=== PATIENT | male | born 1940 | race Caucasian/White ===

== ENCOUNTER 2016-10-29 20:41 | Emergency (ER) | payer MEDICARE ==
[2016-10-29] MEDS ORDERED: Sodium Chloride 0.9% 10 ML Syringe FLUSH PRN (21:16)
[2016-10-29] MEDS ORDERED: Acetaminophen 325 MG Tab PO ONE (21:50)
--- NOTE | 2016-10-29 21:56 | EDM.PDOC ---
ED HPI DIZZINESS - General Chief Complaint: ENT Problem Stated Complaint: DIZZINESS [id number] Time Seen by Provider: 10/29/16 21:30 Source of Information: Reports: Patient, Family Exam Limitations: Reports: No limitations - History of Present Illness INITIAL COMMENTS - FREE TEXT/NARRATIVE: c/o dizziness and weakness worse tonight, room spinning, has had cold symptoms 2 days fever tonight 101 at home. occasional cough. noted had to assist getting him out of recliner tonight. Patient denied SOB or chest pain. O2 86-88 % on admission. No respiratory hx. Patient noted moving and setting mobile home on sunday, exhausted after. Baseline Function: Reports: ambulatory, independent Quality: Reports: lightheaded ( when standing ) Severity: moderate Improves With: Reports: sitting Worsens With: Reports: standing Context, Dizziness: Reports: recent illness Associated Symptoms: Reports: needs assistance to walk. Denies: previous similar episodes - Related Data Allergies/ADRs: Allergies Allergy/AdvReac Type Severity Reaction Status Date / Time No Known Allergies Allergy Verified 10/29/16 21:17 Home Meds: Home Meds Spironolactone [Spironolactone] 25 mg PO DAILY 10/29/16 [History] amLODIPine Besylate/Benazepril [Amlodipine-Benazepril 10-40 MG] 1 each PO DAILY 10/29/16 [History] atorvaSTATin [Lipitor] 20 mg PO BEDTIME 10/29/16 [History] cloNIDine [Catapres] 0.1 mg PO DAILY 10/29/16 [History] glipiZIDE [Glipizide] 10 mg PO BID 10/29/16 [History] metFORMIN [Glucophage] 1,000 mg PO BID 10/29/16 [History] ED ROS GENERAL - Review of Systems Review Of Systems: See Below Constitutional: Reports: fever, malaise, weakness HEENT: Reports: Sinus problem (congestion), Throat pain Respiratory: Reports: No Symptoms Cardiovascular: Reports: Lightheadedness GI/Abdominal: Reports: No symptoms Musculoskeletal: Reports: no symptoms Skin: Reports: no symptoms Neurological: Reports: Dizziness, Weakness Psychiatric: Reports: No symptoms ED EXAM, DIZZINESS - Physical Exam Exam: See Below Exam Limited By: No limitations General Appearance: alert, mild distress Eye Exam: bilateral eye: EOMI, PERRL (4) Ears: normal external exam, normal TMs Nose: normal inspection, normal mucosa Throat/Mouth: Normal inspection Head Exam: atraumatic, normocephalic Neck: normal inspection. No: lymphadenopathy (L), lymphadenopathy (R) Respiratory/Chest: no respiratory distress, lungs clear, normal breath sounds Cardiovascular: normal peripheral pulses, irregularly irregular. No: regular rate, rhythm GI/Abdominal: normal bowel sounds, soft, non tender Neurological: alert, normal mood/affect, normal dorsiflexion, normal reflexes, no motor/sensory deficits, oriented x 3, difficulty walking (weak). No: abnormal motor, tremor Extremities: normal inspection, normal range of motion, no pedal edema Psychiatric: normal affect, normal mood Skin Exam: Warm, Dry, Intact, Normal color Course - Vital Signs Last Recorded V/S: Last Vital Signs Temp 100.4 F 10/29/16 23:24 Pulse 151 H 10/29/16 23:03 Resp 24 H 10/29/16 21:30 BP 138/93 H 10/29/16 23:03 Pulse Ox 86 L 10/29/16 21:30 - Orders/Labs/Meds Orders: Active Orders 24 hr Category Date Time Status EKG Documentation Completion [RC] STAT Care 10/29/16 21:16 Active Peripheral IV Care [RC] . DIRECTED Care 10/29/16 21:17 Active CULTURE BLOOD [BC] Stat Lab 10/29/16 21:30 Received CULTURE BLOOD [BC] Stat Lab 10/29/16 21:36 Received Blood Culture x2 Reflex Set [OM.PC] Stat Oth 10/29/16 21:12 Ordered Peripheral IV Insertion Adult [OM.PC] Routine Oth 10/29/16 21:16 Ordered Labs: Laboratory Tests 10/29/16 10/29/16 10/29/16 Range/Units 21:30 21:36 21:36 WBC 8.5 (5.0-10.0) 10^3/uL RBC 4.27 L (4.6-6.2) 10^6/uL Hgb 12.4 L (14.0-18.0) g/dL Hct 36.8 L (40.0-54.0) % MCV 86.2 (80-100) fL MCH 29.0 (27.0-34.0) pg MCHC 33.7 (33.0-35.0) g/dL Plt Count 191 (150-450) 10^3/uL Neut % (Auto) 76.9 H (42.2-75.2) % Lymph % (Auto) 9.2 L (20.5-50.1) % King % (Auto) 12.9 H (2-8) % Eos % (Auto) 0.6 L (1.0-3.0) % Baso % (Auto) 0.4 (0.0-1.0) % Sodium 139 (135-145) mmol/L Potassium 3.9 (3.6-5.0) mmol/L Chloride 104 (101-111) mmol/L Carbon Dioxide 24.0 (21.0-31.0) mmol/L Anion Gap 14.9 BUN 20 H (7-18) mg/dL Creatinine 1.6 H (0.6-1.3) mg/dL Est Cr Clr Drug Dosing 41.83 mL/min Estimated GFR (MDRD) 42 BUN/Creatinine Ratio 12.50 Glucose 231 H (74-105) mg/dL Lactic Acid 1.4 (0.5-2.2) mmol/L Calcium 9.5 (8.4-10.2) mg/dl Total Bilirubin 1.2 H (0.2-1.0) mg/dL AST 30 (10-42) IU/L ALT 26 (10-60) IU/L Alkaline Phosphatase 76 (42-121) IU/L Troponin I (0.00-0.02) ng/ml B-Natriuretic Peptide 75 (0-100) pg/ml Total Protein 7.4 (6.7-8.2) g/dl Albumin 4.4 (3.2-5.5) g/dl Globulin 3.0 Albumin/Globulin Ratio 1.47 // Range/Units 21:36 WBC (5.0-10.0) 10^3/uL RBC (4.6-6.2) 10^6/uL Hgb (14.0-18.0) g/dL Hct (40.0-54.0) % MCV (80-100) fL MCH (27.0-34.0) pg MCHC (33.0-35.0) g/dL Plt Count (150-450) 10^3/uL Neut % (Auto) (42.2-75.2) % Lymph % (Auto) (20.5-50.1) % King % (Auto) (2-8) % Eos % (Auto) (1.0-3.0) % Baso % (Auto) (0.0-1.0) % Sodium (135-145) mmol/L Potassium (3.6-5.0) mmol/L Chloride (101-111) mmol/L Carbon Dioxide (21.0-31.0) mmol/L Anion Gap BUN (7-18) mg/dL Creatinine (0.6-1.3) mg/dL Est Cr Clr Drug Dosing mL/min Estimated GFR (MDRD) BUN/Creatinine Ratio Glucose (74-105) mg/dL Lactic Acid (0.5-2.2) mmol/L Calcium (8.4-10.2) mg/dl Total Bilirubin (0.2-1.0) mg/dL AST (10-42) IU/L ALT (10-60) IU/L Alkaline Phosphatase (42-121) IU/L Troponin I 0.02 (0.00-0.02) ng/ml B-Natriuretic Peptide (0-100) pg/ml Total Protein (6.7-8.2) g/dl Albumin (3.2-5.5) g/dl Globulin Albumin/Globulin Ratio Meds: Medications Discontinued Medications Generic Name Dose Route Start Last Admin Trade Name Freq PRN Reason Stop Dose Admin Acetaminophen 650 mg 10/29/16 21:50 10/29/16 22:13 Tylenol PO 10/29/16 21:51 650 mg NOW ONE Administration Sodium Chloride 1,000 mls @ 200 mls/hr 10/29/16 22:47 10/29/16 22:55 Normal Saline IV 10/30/16 03:46 200 mls/hr .BOLUS ONE Administration Levofloxacin/Dextrose 500 mg/ 100 mls @ 100 mls/hr 10/29/16 23:13 10/29/16 23 :18 Premix IV 10/30/16 00:12 100 mls/hr ONETIME ONE Administration Metoprolol Tartrate 2.5 mg 10/29/16 22:58 10/29/16 23:03 Lopressor IVPUSH 10/29/16 22:59 2.5 mg ONETIME ONE Administration Sodium Chloride 10 ml 10/29/16 21:16 10/29/16 22:52 Saline Flush FLUSH 10 ml ASDIRECTED PRN Administration Keep Vein Open Departure - Departure Time of Disposition: 00:00 Disposition: DC/Tfer to Acute Hospital 02 Condition: fair Clinical Impression: New onset atrial fibrillation, Abnormal head CT Hypertensive heart disease Qualifiers: Heart failure presence: without heart failure Qualified Code(s): I11.9 - Hypertensive heart disease without heart failure Referrals: Darrin Bolton MD [Primary Care Provider] - Forms: ED Department Discharge - My Orders Last 24 Hours: My Active Orders 10/29/16 21:12 Blood Culture x2 Reflex Set [OM.PC] Stat 10/29/16 21:16 EKG Documentation Completion [RC] STAT Peripheral IV Insertion Adult [OM.PC] Routine 10/29/16 21:17 Peripheral IV Care [RC] . DIRECTED 10/29/16 21:30 CULTURE BLOOD [BC] Stat 10/29/16 21:36 CULTURE BLOOD [BC] Stat - Assessment/Plan Last 24 Hours: My Active Orders 10/29/16 21:12 Blood Culture x2 Reflex Set [OM.PC] Stat 10/29/16 21:16 EKG Documentation Completion [RC] STAT Peripheral IV Insertion Adult [OM.PC] Routine 10/29/16 21:17 Peripheral IV Care [RC] . DIRECTED 10/29/16 21:30 CULTURE BLOOD [BC] Stat 10/29/16 21:36 CULTURE BLOOD [BC] Stat
[2016-10-29] MEDS ORDERED: Sodium Chloride 0.9% 1,000 ML IV ONE (22:47)
[2016-10-29] MEDS ORDERED: Metoprolol Tartrate 5 MG/5 ML SDV IVPUSH ONE (22:58)
[2016-10-29 23:04] VITALS: BP 138/93
[2016-10-29] MEDS ORDERED: Levofloxacin/Dextrose 5%-Water 500 MG in Premix Bag 1 BAG IV ONE (23:13)
--- NOTE | 2016-10-31 14:18 | EKG ---
10/29/2016 - EVELINA MORAN - Twelve-lead EKG shows atrial fibrillation with rapid ventricular response. Heart rate of 132. No significant ST elevation or ST depression noted on this 12-lead EKG. Nonspecific ST changes noted on lead V6. [facility] /[id number]
== END 2016-10-30 ==
LOC: DL.ED 20:41
DX: I11.9 Hypertensive heart disease without heart failure (principal); I48.91 Unspecified atrial fibrillation; R93.0 Abnormal findings on diagnostic imaging of skull and head, not elsewhere classified; Z79.84 Long term (current) use of oral hypoglycemic drugs; Z79.899 Other long term (current) drug therapy
CPT/HCPCS: 36415; 70450; 71020; 80053; 83605; 83880; 84484; 85025; 87040; 87804; 93005; 93010; 96365; 96375; 99285; A9270; J1956; J7030; J7050; J3490

== ENCOUNTER 2016-11-17 22:21 | Inpatient (IN) | payer MEDICARE ==
[2016-11-18] MEDS ORDERED: Furosemide 40 MG/4 ML VIAL IVPUSH ONE (01:17)
[2016-11-18] MEDS ORDERED: Potassium Chloride 10 MEQ Tab.ER PO ONE (01:18)
[2016-11-18] MEDS ORDERED: Potassium Chloride 10 MEQ in Premix Bag 1 BAG IV ONE (01:18)
--- NOTE | 2016-11-18 02:25 | EDM.PDOC ---
{null, ED HPI GENERAL MEDICAL PROBLEM - General Chief Complaint: Respiratory Problem Stated Complaint: PNEUMONIA Time Seen by Provider: 11/17/16 23:50 Source of Information: Reports: Patient, Family History Limitations: Reports: No Limitations - History of Present Illness INITIAL COMMENTS - FREE TEXT/NARRATIVE: ED with c/o increased cough and SOB, No fever or chest pain. [place] heart pounding this am but did not feel fast like last ED visit. notes both have had cold symptoms past few days. Patient notes weakness since release from hospital. Patient transferred from here for new onset atrial fib with abnormal CT and pneumonia on 10/29.. noted bleed (retroperitoneal)while on blood thinner during hospitalization and received 8 units of blood. Abdomen is distended and not changed in size but is "softer than during hospitalization. Edema present lower extremities but no change. Duration: Day(s): Location: Reports: Chest Associated Symptoms: Reports: Cough Right Lower Abdomen Pain Score (Numeric/FACES): 8 - Related Data Allergies Allergy/AdvReac Type Severity Reaction Status Date / Time No Known Allergies Allergy Verified 11/18/16 03:05 Home Meds: Home Meds Spironolactone [Spironolactone] 25 mg PO DAILY 10/29/16 [History] amLODIPine Besylate/Benazepril [Amlodipine-Benazepril 10-40 MG] 1 each PO DAILY 10/29/16 [History] atorvaSTATin [Lipitor] 20 mg PO BEDTIME 10/29/16 [History] cloNIDine [Catapres] 0.1 mg PO DAILY 10/29/16 [History] glipiZIDE [Glipizide] 10 mg PO BID 10/29/16 [History] metFORMIN [Glucophage] 1,000 mg PO BID 10/29/16 [History] Past Medical History HEENT History: Reports: None Cardiovascular History: Reports: Afib, Heart Failure, High Cholesterol, Hypertension Respiratory History: Reports: Pneumonia, Recurrent Genitourinary History: Reports: Acute Renal Failure Musculoskeletal History: Reports: Fracture Neurological History: Reports: None Endocrine/Metabolic History: Reports: Diabetes, Type II Oncologic (Cancer) History: Reports: Prostate - Past Surgical History HEENT Surgical History: Reports: None GI Surgical History: Reports: Appendectomy Social & Family History - Family History Family Medical History: Noncontributory - Tobacco Use Smoking Status *Q: Never Smoker Second Hand Smoke Exposure: No - Caffeine Use Caffeine Use: Reports: None - Recreational Drug Use Recreational Drug Use: No ED ROS GENERAL - Review of Systems Review Of Systems: See Below Constitutional: Reports: Weakness. Denies: Fever, Chills HEENT: Reports: No Symptoms Respiratory: Reports: Shortness of Breath, Cough Cardiovascular: Reports: Edema Endocrine: Reports: No Symptoms GI/Abdominal: Reports: Distension (unchanged), Flatus : Reports: No Symptoms Musculoskeletal: Reports: No Symptoms Skin: Reports: No Symptoms Neurological: Reports: Difficulty Walking, Weakness Psychiatric: Reports: No Symptoms Hematologic/Lymphatic: Reports: Anemia ED EXAM, GENERAL - Physical Exam Exam: See Below Exam Limited By: No Limitations General Appearance: Alert, Mild Distress Eye Exam: Bilateral Eye: PERRL Ears: Normal External Exam Nose: Normal Inspection Throat/Mouth: Normal Inspection Head: Atraumatic, Normocephalic Neck: Normal Inspection, Full Range of Motion Respiratory/Chest: Decreased Breath Sounds, Rales, Wheezing Cardiovascular: Normal Peripheral Pulses, Regular Rate, Rhythm GI/Abdominal: Normal Bowel Sounds (present distant throughout), Non-Tender, Distended (soft) Back Exam: Normal Inspection Extremities: Pedal Edema Neurological: Alert, Oriented, Normal Cognition Psychiatric: Normal Affect Skin Exam: Warm, Dry, Intact, Pallor Course - Vital Signs Last Recorded V/S: Last Vital Signs Temp 98.2 F 11/17/16 23:59 Pulse 64 11/18/16 01:05 Resp 20 11/18/16 01:05 BP 134/39 L 11/18/16 01:05 Pulse Ox 94 L 11/18/16 01:05 - Orders/Labs/Meds Orders: Active Orders 24 hr Category Date Time Status EKG 12 Lead [EKG Documentation Completion] [RC] URGENT Care 11/18/16 01:52 Active Chest 1V Frontal [CR] Urgent Exams 11/18/16 00:11 Taken CULTURE BLOOD [BC] Stat Lab 11/18/16 00:56 Received CULTURE BLOOD [BC] Stat Lab 11/18/16 00:59 Received Blood Culture x2 Reflex Set [OM.PC] Stat Oth 11/18/16 00:11 Ordered Medication Orders Albuterol/Ipratropium (Duoneb 3.0-0.5 Mg/3 Ml) 3 ml NEB Q6HRRT [facility] Atropine Sulfate (Atropine 1% Ophth Oint) 0 gm .XX Q2H PRN PRN Reason: use orally for oral secretion Azithromycin 500 mg/ Sodium (Chloride) 250 mls @ 250 mls/hr IV Q24H [facility] Ceftriaxone Sodium 1 gm/ (Sodium Chloride) 50 mls @ 100 mls/hr IV Q24H [facility] Albumin Human (Flexbumin 25%) 12.5 gm in 50 mls @ 100 mls/hr IV ONETIME ONE Stop: 11/18/16 03:42 Lorazepam (Ativan) 1 mg PO Q4H PRN PRN Reason: anxiety, air hunger Metoprolol Tartrate (Lopressor) 75 mg PO Q12H [facility] Morphine Sulfate (Morphine) 2 mg IVPUSH Q2H PRN PRN Reason: Pain (severe 7-10) Non-Formulary Medication (Amlodipine Besylate/Benazepril [Amlodipine-Benazepril 10-40 Mg]) 1 each PO DAILY [facility] Ondansetron HCl (Zofran) 4 mg IVPUSH Q4H PRN PRN Reason: Nausea/Vomiting Oxycodone HCl (Oxycodone) 5 mg PO Q4H PRN PRN Reason: Pain (moderate 4-6) Pantoprazole Sodium (Protonix Iv) 40 mg IVPUSH Q24H [facility] Polyethylene Glycol (Miralax) 17 gm PO DAILY PRN PRN Reason: Constipation Promethazine HCl (Phenergan) 12.5 mg IM Q6H PRN PRN Reason: Nausea/Vomiting Zolpidem Tartrate (Ambien) 5 mg PO BEDTIME PRN PRN Reason: Sleep Labs: Laboratory Tests 11/18/16 11/18/16 11/18/16 Range/Units 00:15 00:15 00:15 WBC 6.7 (5.0-10.0) 10^3/uL RBC 2.59 L (4.6-6.2) 10^6/uL Hgb 7.6 L (14.0-18.0) g/dL Hct 24.1 L (40.0-54.0) % MCV 93.1 (80-100) fL MCH 29.3 (27.0-34.0) pg MCHC 31.5 L (33.0-35.0) g/dL Plt Count 301 (150-450) 10^3/uL Neut % (Auto) 76.0 H (42.2-75.2) % Lymph % (Auto) 10.2 L (20.5-50.1) % [place]anner % (Auto) 11.1 H (2-8) % Eos % (Auto) 1.8 (1.0-3.0) % Baso % (Auto) 0.9 (0.0-1.0) % PT 11.2 (9.0-12.0) SEC INR 1.1 (0.9-1.2) Sodium 137 (135-145) mmol/L Potassium 2.7 L (3.6-5.0) mmol/L Chloride 101 (101-111) mmol/L Carbon Dioxide 30.0 (21.0-31.0) mmol/L Anion Gap 8.7 BUN 48 H (7-18) mg/dL Creatinine 2.4 H (0.6-1.3) mg/dL Est Cr Clr Drug Dosing 25.33 mL/min Estimated GFR (MDRD) 26 BUN/Creatinine Ratio 20.00 Glucose 246 H (74-105) mg/dL Calcium 7.8 L (8.4-10.2) mg/dl Total Bilirubin 1.8 H (0.2-1.0) mg/dL AST 35 (10-42) IU/L ALT 50 (10-60) IU/L Alkaline Phosphatase 66 (42-121) IU/L CK-MB (CK-2) (0.4-4.7) ng/mL Troponin I 0.03 H* (0.00-0.02) ng/ml B-Natriuretic Peptide 369 H (0-100) pg/ml Total Protein 6.0 L (6.7-8.2) g/dl Albumin 2.9 L (3.2-5.5) g/dl Globulin 3.1 Albumin/Globulin Ratio 0.94 /13/17 Range/Units 00:15 WBC (5.0-10.0) 10^3/uL RBC (4.6-6.2) 10^6/uL Hgb (14.0-18.0) g/dL Hct (40.0-54.0) % MCV (80-100) fL MCH (27.0-34.0) pg MCHC (33.0-35.0) g/dL Plt Count (150-450) 10^3/uL Neut % (Auto) (42.2-75.2) % Lymph % (Auto) (20.5-50.1) % [place]anner % (Auto) (2-8) % Eos % (Auto) (1.0-3.0) % Baso % (Auto) (0.0-1.0) % PT (9.0-12.0) SEC INR (0.9-1.2) Sodium (135-145) mmol/L Potassium (3.6-5.0) mmol/L Chloride (101-111) mmol/L Carbon Dioxide (21.0-31.0) mmol/L Anion Gap BUN (7-18) mg/dL Creatinine (0.6-1.3) mg/dL Est Cr Clr Drug Dosing mL/min Estimated GFR (MDRD) BUN/Creatinine Ratio Glucose (74-105) mg/dL Calcium (8.4-10.2) mg/dl Total Bilirubin (0.2-1.0) mg/dL AST (10-42) IU/L ALT (10-60) IU/L Alkaline Phosphatase (42-121) IU/L CK-MB (CK-2) 0.70 (0.4-4.7) ng/mL Troponin I (0.00-0.02) ng/ml B-Natriuretic Peptide (0-100) pg/ml Total Protein (6.7-8.2) g/dl Albumin (3.2-5.5) g/dl Globulin Albumin/Globulin Ratio Meds: Medications Generic Name Dose Route Start Last Admin Trade Name Freq PRN Reason Stop Dose Admin Albuterol/Ipratropium 3 ml 11/18/16 07:00 Duoneb 3.0-0.5 Mg/3 Ml NEB Q6HRRT [facility] Atropine Sulfate 0 gm 11/18/16 03:17 Atropine 1% Ophth Oint .XX Q2H PRN use orally for oral secretion Azithromycin 500 mg/ Sodium 250 mls @ 250 mls/hr 11/18/16 03:15 Chloride IV Q24H [facility] Ceftriaxone Sodium 1 gm/ 50 mls @ 100 mls/hr 11/18/16 03:15 Sodium Chloride IV Q24H [facility] Albumin Human 12.5 gm in 50 mls @ 100 mls/hr 11/18/16 03:13 Flexbumin 25% IV 11/18/16 03:42 ONETIME ONE Lorazepam 1 mg 11/18/16 03:16 Ativan PO Q4H PRN anxiety, air hunger Metoprolol Tartrate 75 mg 11/18/16 03:15 Lopressor PO Q12H [facility] Morphine Sulfate 2 mg 11/18/16 03:00 Morphine IVPUSH Q2H PRN Pain (severe 7-10) Non-Formulary Medication 1 each 11/18/16 09:00 Amlodipine Besylate/Benazepril [Amlodipine-Benazepril 10-40 Mg] PO DAILY [facility] Ondansetron HCl 4 mg 11/18/16 03:00 Zofran IVPUSH Q4H PRN Nausea/Vomiting Oxycodone HCl 5 mg 11/18/16 03:00 Oxycodone PO Q4H PRN Pain (moderate 4-6) Pantoprazole Sodium 40 mg 11/18/16 03:00 Protonix Iv IVPUSH Q24H [facility] Polyethylene Glycol 17 gm 11/18/16 03:00 Miralax PO DAILY PRN Constipation Promethazine HCl 12.5 mg 11/18/16 03:00 Phenergan IM Q6H PRN Nausea/Vomiting Zolpidem Tartrate 5 mg 11/18/16 03:00 Ambien PO BEDTIME PRN Sleep Discontinued Medications Generic Name Dose Route Start Last Admin Trade Name Freq PRN Reason Stop Dose Admin Furosemide 40 mg 11/18/16 01:17 11/18/16 01:48 Lasix IVPUSH 11/18/16 01:18 40 mg NOW ONE Administration Potassium Chloride 10 meq/ 100 mls @ 100 mls/hr 11/18/16 01:18 11/18/16 01:52 Premix IV 11/18/16 02:17 100 mls/hr ONETIME ONE Administration Potassium Chloride 20 meq 11/18/16 01:18 11/18/16 01:45 Klor-Con 10 PO 11/18/16 01:19 20 meq ONETIME ONE Administration - Re-Assessments/Exams Free Text/Narrative Re-Assessment/Exam: Code status discussed with and patient. Both are in agreement and express desire for DNR/DNI. also does not want patient placed on CPAP due to previous experience with increased agitation and poor tolerance by patient. Patient reported to have been placed on comfort care during last hospitalization. Dr. Ramey here to evaluate patient. Accepting of patient for admission. Departure - Departure Time of Disposition: 02:20 Disposition: Admitted As Inpatient 66 Condition: fair Clinical Impression: History of atrial fibrillation, Diabetes Congestive heart failure Qualifiers: Congestive heart failure type: unspecified congestive heart failure type Congestive heart failure chronicity: acute Qualified Code(s): I50.9 - Heart failure, unspecified Anemia Qualifiers: Anemia type: other cause Other causes of anemia: acute posthemorrhagic Qualified Code(s): D62 - Acute posthemorrhagic anemia CKD (chronic kidney disease) Qualifiers: Chronic kidney disease stage: stage 3 (moderate) Qualified Code(s): N18.3 - Chronic kidney disease, stage 3 (moderate) - Discharge Information - My Orders Last 24 Hours: My Active Orders 11/18/16 00:11 Chest 1V Frontal [CR] Urgent Blood Culture x2 Reflex Set [OM.PC] Stat 11/18/16 00:56 CULTURE BLOOD [BC] Stat 11/18/16 00:59 CULTURE BLOOD [BC] Stat 11/18/16 01:52 EKG 12 Lead [EKG Documentation Completion] [RC] URGENT - Assessment/Plan Last 24 Hours: My Active Orders 11/18/16 00:11 Chest 1V Frontal [CR] Urgent Blood Culture x2 Reflex Set [OM.PC] Stat 11/18/16 00:56 CULTURE BLOOD [BC] Stat 11/18/16 00:59 CULTURE BLOOD [BC] Stat 11/18/16 01:52 EKG 12 Lead [EKG Documentation Completion] [RC] URGENT }
[2016-11-18] MEDS ORDERED: oxyCODONE 5 MG Tab PO PRN (03:00)
[2016-11-18] MEDS ORDERED: Morphine 2 MG/ML Syringe IVPUSH PRN (03:00)
[2016-11-18] MEDS ORDERED: Ondansetron 4 MG/2 ML SDV IVPUSH PRN (03:00)
[2016-11-18] MEDS ORDERED: Promethazine 25 MG/ML SDV IM PRN (03:00)
[2016-11-18] MEDS ORDERED: Polyethylene Glycol 3350 Powder 17 GM Packet PO PRN (03:00)
[2016-11-18] MEDS ORDERED: Zolpidem 5 MG Tab PO PRN (03:00)
[2016-11-18] MEDS ORDERED: Albumin 25% 12.5 GM/50 ML BAG IV ONE (03:13)
[2016-11-18] MEDS ORDERED: LORazepam 1 MG Tab PO PRN (03:16)
[2016-11-18] MEDS ORDERED: Atropine 1% Ophth Soln 5 ML Bottle SL PRN (03:17)
[2016-11-18] MEDS ORDERED: Metoprolol Tartrate 25 MG Tab PO SCH (04:00)
[2016-11-18] MEDS: Pantoprazole 40 MG Vial IVPUSH SCH (04:06)
[2016-11-18] MEDS: cefTRIAXone 1 GM in Sodium Chloride 0.9% 50 ML IV SCH (04:44)
[2016-11-18] MEDS: Azithromycin 500 MG in Sodium Chloride 0.9% 250 ML IV SCH (05:18)
[2016-11-18] MEDS: Sodium Chloride 0.9% 10 ML Syringe FLUSH PRN ×4 (06:23→20:28)
[2016-11-18] MEDS: Albuterol/Ipratropium 3.0-0.5 MG/3 ML Neb Soln NEB SCH ×4 (07:26→17:27)
[2016-11-18] MEDS: amLODIPine 5 MG Tab PO SCH (08:56)
[2016-11-18] MEDS: Benazepril 10 MG Tab PO SCH (08:56)
[2016-11-18] MEDS: Metoprolol Tartrate 25 MG Tab PO SCH ×2 (08:57→21:05)
[2016-11-18] MEDS ORDERED: Furosemide 20 MG/2 ML VIAL IVPUSH SCH (09:45)
[2016-11-18] MEDS ORDERED: Non-Formulary Medication 1 Each (Metformin [Glucophage] 1,000 MG) PO SCH (10:00)
[2016-11-18] MEDS: glipiZIDE 5 MG Tab PO SCH ×2 (10:53→17:50)
[2016-11-18] MEDS: Potassium Chloride 10 MEQ Tab.ER PO SCH ×2 (10:53→21:09)
[2016-11-18] MEDS: Spironolactone 25 MG Tab PO SCH (10:54)
[2016-11-18] MEDS: cloNIDine 0.1 MG Tab PO SCH ×2 (10:54→21:07)
[2016-11-18] MEDS ORDERED: Benzocaine/Docusate Sodium 20-283 MG/5 ML Enema RECTAL ONE (11:13)
[2016-11-18] MEDS ORDERED: Magnesium Hydroxide 400 MG/5 ML Susp 30 ML Cup PO PRN (11:13)
[2016-11-18] MEDS: Furosemide 20 MG/2 ML VIAL IVPUSH SCH ×2 (11:18→19:45)
[2016-11-18] MEDS: Albumin 25% 12.5 GM/50 ML BAG IV SCH ×2 (11:19→19:53)
[2016-11-18] MEDS: Insulin Aspart 100 Units/ML 3 ML Pen SUBCUT SCH ×3 (11:43→21:17)
--- NOTE | 2016-11-18 12:28 | PCM.HP ---
{null, H&P History of Present Illness - General Date of Service: 11/18/16 Admit Problem/Dx: Admission Diagnosis/Problem Admission Diagnosis/Problem Atrial fibrillation Source of Information: Patient, Family () History Limitations: Reports: No Limitations - History of Present Illness Initial Comments - Free Text/Narative: 76 year old patient with a history of diabetes, prostate cancer, urinary retention, essential hypertension, hyperlipidemia, duodenal ulcer hemorrhage in 2004, and CKD who was admitted on 10/30/16 with rapid atrial fibrillation, weakness, and dizziness, he was also found to have pneumonia. At that time he was started on anticoagulation for the atrial fibrillation. He developed hypotension, abdominal pain and anemia. CT abdomen found an acute retroperitoneal bleed. He also developed acute renal failure and creatinine was 3.7. He had no urine output despite lasix and albumen so he was started on dialysis. patient and his decided to go home on comfort care. today patient came to the emergency room of increasing shortness of breath and having racing heart says he came to the emergency room. the admitted having distended abdomen for long time. He had poor movement yesterday. they denied fever, chills, nausea, vomiting, chest pain, urinary symptoms, abdominal pain, unilateral weakness/numbness/tingling, blood in the stool or black stool, rash, confusion or any other symptoms. Emergency room his labs showed WBC 6.7. Hemoglobin 7.6. INR 1.1. Potassium 2.7. Sodium 137. Creatinine 2.4. BUN 48. Blood glucose 246. Total bilirubin 1.8. troponin 0.03. BNP 369. Bilirubin 6.0. albumin 2.9. UA showed trace leukocyte esterase. Urine nitrates negative. Urine WBC 0-5. Bacteria few. Chest x-ray did not show acute findings. Abdomen x-ray was done due to distended abdomen showed distended colon with stool in the rectum. his EKG showed sinus rhythm is normal heart rate and no acute ST changes , but his telemetry was showing intermittent atrial fibrillation. patient and want the patient to be treated medically for his condition and to decline transferring to [facility] or any other higher care level facility and did not want any dramatic procedure. They declined CPAP or BiPAP even if needed but they want blood is drawn, blood transfusion if needed, enema, insulin treatment. In the emergency room he received oral and IV potassium. On admission he received IV Lasix, IV albumin infusion, he was started on IV antibiotics for possible pneumonia, blood cultures were obtained, blood transfusion of one unit of RBC to improve his breathing and he was requiring 6 L of nasal oxygen to keep his sat at 90% although he did not seem to be in acute respiratory distress Right Lower Abdomen Pain Score (Numeric/FACES): 8 - Related Data Allergies/Adverse Reactions: Allergies Allergy/AdvReac Type Severity Reaction Status Date / Time No Known Allergies Allergy Verified 11/18/16 03:05 Home Medications: Home Meds RX: metFORMIN [Glucophage] 1,000 mg PO BIDMEALS 10/29/16 [History] Spironolactone [Spironolactone] 25 mg PO DAILY 10/29/16 [History] amLODIPine Besylate/Benazepril [Amlodipine-Benazepril 10-40 MG] 1 each PO DAILY 10/29/16 [History] atorvaSTATin [Lipitor] 20 mg PO BEDTIME 10/29/16 [History] cloNIDine [Catapres] 0.1 mg PO BID 10/29/16 [History] glipiZIDE [Glipizide] 10 mg PO BID 10/29/16 [History] Calcium Citrate/Vitamin D3 [Calcium Citrate - Vit D3 Tab] 1 tab PO DAILY [History] RX: Acetaminophen 650 mg PO Q4H PRN 11/18/16 [History] RX: LORazepam 0.25 mg PO BEDTIME 11/18/16 [History] RX: Metoprolol Tartrate 75 mg PO BID 11/18/16 [History] Past Medical History HEENT History: Reports: None Cardiovascular History: Reports: Afib, Heart Failure, High Cholesterol, Hypertension Respiratory History: Reports: Pneumonia, Recurrent Genitourinary History: Reports: Acute Renal Failure Musculoskeletal History: Reports: Fracture Neurological History: Reports: None Psychiatric History: Reports: None Endocrine/Metabolic History: Reports: Diabetes, Type II Hematologic History: Reports: None Immunologic History: Reports: None Oncologic (Cancer) History: Reports: Prostate Dermatologic History: Reports: None - Infectious Disease History Infectious Disease History: Reports: None - Past Surgical History HEENT Surgical History: Reports: None GI Surgical History: Reports: Appendectomy Social & Family History - Family History Family Medical History: Noncontributory - Tobacco Use Smoking Status *Q: Never Smoker Second Hand Smoke Exposure: No - Caffeine Use Caffeine Use: Reports: None - Recreational Drug Use Recreational Drug Use: No H&P Review of Systems - Review of Systems: Review Of Systems: See Below General: Reports: Weakness, Fatigue. Denies: Fever, Chills, Night Sweats, Diaphoresis HEENT: Reports: No Symptoms Pulmonary: Reports: Shortness of Breath, Cough. Denies: Wheezing, Pleuritic Chest Pain, Hemoptysis Cardiovascular: Reports: Palpitations. Denies: Chest Pain, Dyspnea on Exertion Gastrointestinal: Reports: Distension. Denies: Abdominal Pain, Black Stool, Difficulty Swallowing Genitourinary: Reports: No Symptoms Musculoskeletal: Reports: No Symptoms Skin: Reports: No Symptoms Psychiatric: Reports: No Symptoms. Denies: Confusion, Depression, Mood Lability , Anxiety, Agitation, Hallucinations, Suicidal Ideation, Homicidal Ideation, Hallucinations (Auditory), Hallucinations (Visual) Neurological: Reports: No Symptoms Hematologic/Lymphatic: Reports: Anemia. Denies: Easy Bruising, Swollen Glands Immunologic: Reports: No Symptoms Exam - Exam Exam: See Below - Vital Signs Vital Signs: Last Vital Signs Temp 36.3 C 11/18/16 11:50 Pulse 66 11/18/16 11:50 Resp 24 H 11/18/16 11:50 BP 128/52 L 11/18/16 11:50 Pulse Ox 91 L 11/18/16 11:50 Weight: 90.401 kg - Exam General: Alert, Oriented, Cooperative. No: Mild Distress, Severe Distress, Sedated, Lethargic, Obtunded HEENT: Conjunctiva Clear, EACs Clear, EOMI, Hearing Intact, Mucosa Moist & [place] , Nares Patent, Normal Nasal Septum, Posterior Pharynx Clear, Pupils Equal, Pupils Reactive, TMs Clear Neck: Supple, Trachea Midline Lungs: Decreased Breath Sounds (lower bases), Crackles (in bases). No: Rhonchi , Rub, Stridor, Wheezing Cardiovascular: Regular Rate, Regular Rhythm Abdomen: Soft, Distention, Hyperactive Bowel Sounds, Tympanic Bowel Sounds. No : Organomegaly, Peritoneal Signs, Guarding, Rigidity, Rebound, Tenderness, McBurney's Sign, Rovsing's Sign, Mendez's Sign (Male) Exam: Deferred Rectal (Males) Exam: Deferred Back Exam: Normal Inspection, Full Range of Motion Extremities: Normal Pulses, Edema (+2 bilateral lower extremities edema). No: Clubbing, Cyanosis, Calf Tenderness Skin: Warm, Dry, Other (gluteal callus was likely from decubitus pressure. No signs of infection or open wounds) Neurological: Cranial Nerves Intact, Reflexes Equal Bilateral, Strength Equal Bilateral Neuro Extensive - Mental Status: Alert, Oriented x3, Normal Mood/Affect, Normal Cognition, Memory Intact Neuro Extensive - Motor, Sensory, Reflexes: CN II-XII Intact, Normal Reflexes Psychiatric: Alert, Normal Affect, Normal Mood. No: Anxious, Agitated, Suicidal Ideation, Homicidal Ideation, Hallucinations, Withdrawal Symptoms - Patient Data Lab Results last 24 hrs: Laboratory Results - last 24 hr 11/18/16 11/18/16 11/18/16 Range/Units 03:30 11:01 11:15 WBC 6.1 (5.0-10.0) 10^3/uL RBC 2.57 L (4.6-6.2) 10^6/uL Hgb 7.5 L (14.0-18.0) g/dL Hct 24.3 L (40.0-54.0) % MCV 94.6 (80-100) fL MCH 29.2 (27.0-34.0) pg MCHC 30.9 L (33.0-35.0) g/dL Plt Count 291 (150-450) 10^3/uL Neut % (Auto) 71.8 (42.2-75.2) % Lymph % (Auto) 13.3 L (20.5-50.1) % [place] % (Auto) 11.9 H (2-8) % Eos % (Auto) 2.0 (1.0-3.0) % Baso % (Auto) 1.0 (0.0-1.0) % POC Glucose 238 H (83-110) mg/dl Urine Color Yellow (YELLOW) Urine Appearance Clear (CLEAR) Urine pH 6.5 (5.0-9.0) Ur Specific [place] 1.015 (1.005-1.030) Urine Protein Trace H (NEGATIVE) Urine Glucose (UA) 100 H (NEGATIVE) Urine Ketones Negative (NEGATIVE) Urine Occult Blood Trace-lysed H (NEGATIVE) Urine Nitrite Negative (NEGATIVE) Urine Bilirubin Negative (NEGATIVE) Urine Urobilinogen 0.2 (0.2-1.0) mg/dL Ur Leukocyte Esterase Trace H (NEGATIVE) Urine RBC 0-5 /HPF Urine WBC 0-5 (0-5/HPF) /HPF Ur Epithelial Cells Few /HPF Amorphous Sediment Few (0/HPF) /HPF Urine Bacteria Few (0-FEW/HPF) /HPF Hyaline Casts Few H /LPF Urine Yeast Few H (0/HPF) /HPF Result Diagrams: 11/18/16 11:15 11/18/16 00:15 *Q Meaningful Use (ADM) - VTE *Q VTE Criteria *Q: - Stroke *Q Stroke Criteria *Q: - AMI *Q AMI Criteria *Q: - Problem List (1) Essential hypertension SNOMED Code(s): 35220139 ICD Code: I10 - ESSENTIAL (PRIMARY) HYPERTENSION Status: Chronic Current Visit: Yes (2) Acute on chronic congestive heart failure SNOMED Code(s): 47542296 ICD Code: I50.9 - HEART FAILURE, UNSPECIFIED Status: Acute Priority: High Current Visit: Yes (3) Shortness of breath SNOMED Code(s): 135895273 ICD Code: R06.02 - SHORTNESS OF BREATH Status: Acute Current Visit: Yes (4) Hypoalbuminemia SNOMED Code(s): 285762572 ICD Code: E88.09 - OTH DISORDERS OF PLASMA-PROTEIN METABOLISM, NEC Status: Acute Current Visit: Yes (5) Hypokalemia SNOMED Code(s): 60030285 ICD Code: E87.6 - HYPOKALEMIA Status: Acute Current Visit: Yes (6) Elevated bilirubin SNOMED Code(s): 130921294 ICD Code: R17 - UNSPECIFIED JAUNDICE Status: Acute Current Visit: Yes (7) Anemia SNOMED Code(s): 398365073 ICD Code: D64.9 - ANEMIA, UNSPECIFIED Status: Acute Current Visit: Yes Qualifiers: Anemia type: other cause Other causes of anemia: acute posthemorrhagic Qualified Code(s): D62 - Acute posthemorrhagic anemia (8) CKD (chronic kidney disease) SNOMED Code(s): 949003859 ICD Code: N18.9 - CHRONIC KIDNEY DISEASE, UNSPECIFIED Status: Acute Current Visit: Yes Qualifiers: Chronic kidney disease stage: stage 3 (moderate) Qualified Code(s): N18.3 - Chronic kidney disease, stage 3 (moderate) (9) Congestive heart failure SNOMED Code(s): 61884556 ICD Code: I50.9 - HEART FAILURE, UNSPECIFIED Status: Acute Current Visit : Yes Qualifiers: Congestive heart failure type: unspecified congestive heart failure type Congestive heart failure chronicity: acute Qualified Code(s): I50.9 - Heart failure, unspecified (10) Diabetes SNOMED Code(s): 85959953 ICD Code: E11.9 - TYPE 2 DIABETES MELLITUS WITHOUT COMPLICATIONS Status: Chronic Current Visit: Yes Qualifiers: Diabetes mellitus type: type 2 (11) History of atrial fibrillation SNOMED Code(s): 381186328 ICD Code: Z86.79 - PERSONAL HISTORY OF OTHER DISEASES OF THE CIRCULATORY SYSTEM Status: Chronic Current Visit: Yes Problem List Initiated/Reviewed/Updated: Yes Orders Last 24hrs: Active Orders 24 hr Category Date Time Status Accu Check [Blood Glucose Check, Bedside] [RC] Care 11/18/16 09:49 Active QIDACANDBED Discontinue Telemetry Monitoring [Cardiac Monitoring Care 11/18/16 11:28 Active Discontinue] [RC] Click To Edit RT Aerosol Therapy [RC] ASDIRECTED Care 11/18/16 03:07 Active Urinary Catheter Assessment [RC] Care 11/18/16 03:08 Inactive Verify Patient Consent Obtain [RC] ASDIRECTED Care 11/18/16 12:01 Active B-TYPE NATRIURETIC PEPTIDE,BNP [CHEM] Routine Lab 11/18/16 11:15 Received COMPREHENSIVE METABOLIC PN,CMP [CHEM] Routine Lab 11/18/16 11:15 Received TROPONIN I [CHEM] Routine Lab 11/18/16 11:15 Received TYPE AND SCREEN [BBK] Routine Lab 11/18/16 12:01 Ordered Albumin 25% [Flexbumin 25%] Med 11/18/16 11:00 Active 12.5 gm in 50 ml IV Q8H Albuterol/Ipratropium [DuoNeb 3.0-0.5 MG/3 ML] Med 11/18/16 07:00 Active 3 ml NEB Q6HRRT Atropine 1% [Isopto Atropine 1% Ophth Soln] Med 11/18/16 03:17 Active See Dose Instructions SL Q2H PRN Azithromycin [Zithromax] 500 mg Med 11/18/16 04:00 Active Sodium Chloride 0.9% [Normal Saline] 250 ml IV Q24H Benazepril [Lotensin] Med 11/18/16 09:00 Active 40 mg PO DAILY Furosemide [Lasix] Med 11/18/16 11:00 Active 20 mg IVPUSH Q8H Insulin Aspart [NovoLOG] Med 11/18/16 12:00 Active See Protocol SUBCUT WITHMEALSANDBED LORazepam [Ativan] Med 11/18/16 03:16 Active 1 mg PO Q4H PRN Magnesium Hydroxide [Milk of Magnesia] Med 11/18/16 11:13 Active 30 ml PO Q6H PRN Metoprolol Tartrate [Lopressor] Med 11/18/16 09:00 Active 75 mg PO Q12H Potassium Chloride [Klor-Con 10] Med 11/18/16 09:45 Active 40 meq PO BEDTIME Sodium Chloride 0.9% [Saline Flush] Med 11/18/16 05:47 Active 10 ml FLUSH ASDIRECTED PRN Spironolactone [Aldactone] Med 11/18/16 10:00 Active 25 mg PO DAILY amLODIPine [Norvasc] Med 11/18/16 09:00 Active 10 mg PO DAILY cefTRIAXone [Rocephin] 1 gm Med 11/18/16 03:30 Active Sodium Chloride 0.9% [Normal Saline] 50 ml IV Q24H cloNIDine [Catapres] Med 11/18/16 10:00 Active 0.1 mg PO BID glipiZIDE [Glucotrol] Med 11/18/16 10:00 Active 10 mg PO BIDAC Transfuse RBC [Transfuse Red Blood Cells] [COMM] Ot 11/18/16 12:01 Ordered Routine Medication Orders Albuterol/Ipratropium (Duoneb 3.0-0.5 Mg/3 Ml) 3 ml NEB Q6HRRT [facility] Last Admin: 11/18/16 12:00 Dose: 3 ml Admin: 11/18/16 07:26 Dose: 3 ml Amlodipine Besylate (Norvasc) 10 mg PO DAILY [facility] Last Admin: 11/18/16 08:56 Dose: 10 mg Atropine Sulfate (Isopto Atropine 1% [facility]) 0 ml SL Q2H PRN PRN Reason: use orally for oral secretion Benazepril HCl (Lotensin) 40 mg PO DAILY [facility] Last Admin: 11/18/16 08:56 Dose: 40 mg Clonidine HCl (Catapres) 0.1 mg PO BID [facility] Last Admin: 11/18/16 10:54 Dose: 0.1 mg Furosemide (Lasix) 20 mg IVPUSH Q8H [facility] Stop: 11/19/16 03:01 Last Admin: 11/18/16 11:18 Dose: 20 mg [facility]ot[facility]) [facility] Last Admin: 11/18/16 10:53 Dose: 10 mg Azithromycin 500 mg/ Sodium (Chloride) 250 mls @ 250 mls/hr IV Q24H [facility] Last Admin: 11/18/16 05:18 Dose: 250 mls/hr Ceftriaxone Sodium 1 gm/ (Sodium Chloride) 50 mls @ 100 mls/hr IV Q24H [facility] Last Admin: 11/18/16 04:44 Dose: 100 mls/hr Albumin Human (Flexbumin 25%) 12.5 gm in 50 mls @ 100 mls/hr IV Q8H [facility] Stop: 11/19/16 03:29 Last Admin: 11/18/16 11:19 Dose: 100 mls/hr Insulin Aspart (Novolog) 0 unit SUBCUT WITHMEALSANDBED [facility] PRN Reason: Protocol Last Admin: 11/18/16 11:43 Dose: 2 units Lorazepam (Ativan) 1 mg PO Q4H PRN PRN Reason: anxiety, air hunger Magnesium Hydroxide (Milk Of Magnesia) 30 ml PO Q6H PRN PRN Reason: Constipation Last Admin: 11/18/16 11:50 Dose: 30 ml Metoprolol Tartrate (Lopressor) 75 mg PO Q12H [facility] Last Admin: 11/18/16 08:57 Dose: 75 mg Morphine Sulfate (Morphine) 2 mg IVPUSH Q2H PRN PRN Reason: Pain (severe 7-10) Ondansetron HCl (Zofran) 4 mg IVPUSH Q4H PRN PRN Reason: Nausea/Vomiting Oxycodone HCl (Oxycodone) 5 mg PO Q4H PRN PRN Reason: Pain (moderate 4-6) Pantoprazole Sodium (Protonix Iv) 40 mg IVPUSH Q24H [facility] Last Admin: 11/18/16 04:06 Dose: 40 mg Polyethylene Glycol (Miralax) 17 gm PO DAILY PRN PRN Reason: Constipation Potassium Chloride (Klor-Con 10) 40 meq PO BEDTIME [facility] Stop: 11/18/16 21:01 Last Admin: 11/18/16 10:53 Dose: 40 meq Promethazine HCl (Phenergan) 12.5 mg IM Q6H PRN PRN Reason: Nausea/Vomiting Sodium Chloride (Saline Flush) 10 ml FLUSH ASDIRECTED PRN PRN Reason: Keep Vein Open Last Admin: 11/18/16 06:23 Dose: 10 ml Spironolactone (Aldactone) 25 mg PO DAILY [facility] Last Admin: 11/18/16 10:54 Dose: 25 mg Zolpidem Tartrate (Ambien) 5 mg PO BEDTIME PRN PRN Reason: Sleep Assessment/Plan Comment:: Possible Community Acquired Pneumonia Patient without fever and weakness chest x-ray did not show acute findings -Follow up with cultures -Start empiric antibiotics: azithromycin and Rocephin Possible acute congestive heart failure BNP slightly improved after Lasix and albumin infusion echocardiogram showed ejection fraction was than 60% last of month continue with Lopressor and spironolactone -Continue with Lasix and albumin for one more day Intermittent Atrial fibrillation -heart rate is controlled he declined telemetry Continuous Lopressor, benzapril Acute on Chronic Kidney Disease possible pre renal due hypoalbuminia -albumin infusion with Lasix Avoid Nephrotoxic agents Anemia Multifactorial Maybe attributing to his shortness breath Blood transfusion, One unit of RBC Generalized weakness multifactorial They do not want physical therapy. Abdominal distention with possible stool impaction on abdomen x-ray he seemed to have distended colon and stool in the rectum. Patient has hyperactive bowel sounds -I will do milk of magnesia and enema Cholelithiasis, asymptomatic was seen on abdomen CT scan from last month and abdomen x-ray from today patient denies abdomen pain He does not want any intervention Lung nodule, 3 mm left lower lobe seen on chest CT scan from last month patient and does not want to do any further workup even if it's cancer and even treatable Diabetes Mellitus type II Hold metformin Continue on glipizide Sliding scale insulin Diabetic diet Blood glucose monitoring Essential Hypertension continue metoprolol, amlodipine, benzapril Hyperlipidemia Continue statin History of prostate cancer status post cryoablation prostate on 04/15/2013 with rise in PSA and negative biopsy. 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 no open wound appreciated Pressure dressing Diet Diabetic diet pharmaceuticals he became productive due to the history of recent retroperitoneal bleeding Code Status: DNI/DNR }
[2016-11-18] MEDS: atorvaSTATin 20 MG Tab PO SCH (21:07)
[2016-11-19] MEDS: Albuterol/Ipratropium 3.0-0.5 MG/3 ML Neb Soln NEB SCH ×5 (00:30→17:28)
[2016-11-19] MEDS: Sodium Chloride 0.9% 10 ML Syringe FLUSH PRN ×6 (02:56→05:27)
[2016-11-19] MEDS: Pantoprazole 40 MG Vial IVPUSH SCH (02:57)
[2016-11-19] MEDS: Albumin 25% 12.5 GM/50 ML BAG IV SCH (03:09)
[2016-11-19] MEDS: Furosemide 20 MG/2 ML VIAL IVPUSH SCH (03:42)
[2016-11-19] MEDS: cefTRIAXone 1 GM in Sodium Chloride 0.9% 50 ML IV SCH (03:47)
[2016-11-19] MEDS: Azithromycin 500 MG in Sodium Chloride 0.9% 250 ML IV SCH (04:21)
[2016-11-19] MEDS: glipiZIDE 5 MG Tab PO SCH ×2 (05:40→17:44)
[2016-11-19] MEDS: Insulin Aspart 100 Units/ML 3 ML Pen SUBCUT SCH ×4 (08:30→21:28)
[2016-11-19] MEDS: amLODIPine 5 MG Tab PO SCH (08:30)
[2016-11-19] MEDS: Spironolactone 25 MG Tab PO SCH (08:31)
[2016-11-19] MEDS: Metoprolol Tartrate 25 MG Tab PO SCH ×2 (08:31→20:36)
[2016-11-19] MEDS: cloNIDine 0.1 MG Tab PO SCH ×2 (08:32→20:37)
[2016-11-19] MEDS: Benazepril 10 MG Tab PO SCH (08:36)
[2016-11-19] MEDS ORDERED: Potassium Chloride 10 MEQ Tab.ER PO ONE ×2 (10:00→18:00)
--- NOTE | 2016-11-19 11:07 | PCM.PN ---
{null, - General Info Admission Dx/Problem (Free Text): Admission Diagnosis/Problem Admission Diagnosis/Problem Atrial fibrillation Subjective Update: patient stated that he is feeling better but is still opening of some shortness of breath and cough. He denies fever, chills, nausea, vomiting, abdominal pain, chest pain, unilateral weakness, or any other symptoms. - Patient Data Vitals - most recent: Last Vital Signs Temp 36.9 C 11/19/16 07:37 Pulse 71 11/19/16 08:31 Resp 20 11/19/16 07:37 BP 136/62 11/19/16 08:36 Pulse Ox 96 11/19/16 07:37 Weight - most recent: 89.63 kg I&O - last 24 hours: Intake & Output 11/18/16 11/19/16 11/19/16 22:59 06:59 14:59 Intake Total 783 591 Output Total 1300 600 650 Balance -285 -6 -974 Lab Results last 24 hrs: Laboratory Results - last 24 hr 11/18/16 11/18/16 11/18/16 Range/Units 11:01 11:15 11:15 WBC 6.1 (5.0-10.0) 10^3/uL RBC 2.57 L (4.6-6.2) 10^6/uL Hgb 7.5 L (14.0-18.0) g/dL Hct 24.3 L (40.0-54.0) % MCV 94.6 (80-100) fL MCH 29.2 (27.0-34.0) pg MCHC 30.9 L (33.0-35.0) g/dL Plt Count 291 (150-450) 10^3/uL Neut % (Auto) 71.8 (42.2-75.2) % Lymph % (Auto) 13.3 L (20.5-50.1) % [place] % (Auto) 11.9 H (2-8) % Eos % (Auto) 2.0 (1.0-3.0) % Baso % (Auto) 1.0 (0.0-1.0) % Sodium 138 (135-145) mmol/L Potassium 3.1 L (3.6-5.0) mmol/L Chloride 102 (101-111) mmol/L Carbon Dioxide 31.0 (21.0-31.0) mmol/L Anion Gap 8.1 BUN 46 H (7-18) mg/dL Creatinine 2.3 H (0.6-1.3) mg/dL Est Cr Clr Drug Dosing 26.43 mL/min Estimated GFR (MDRD) 28 BUN/Creatinine Ratio 20.00 Glucose 231 H (74-105) mg/dL POC Glucose 238 H (83-110) mg/dl Calcium 7.9 L (8.4-10.2) mg/dl Total Bilirubin 1.8 H (0.2-1.0) mg/dL AST 31 (10-42) IU/L ALT 47 (10-60) IU/L Alkaline Phosphatase 61 (42-121) IU/L Troponin I (0.00-0.02) ng/ml C-Reactive Protein (0.0-1.3) mg/dL B-Natriuretic Peptide (0-100) pg/ml Total Protein 5.6 L (6.7-8.2) g/dl Albumin 2.8 L (3.2-5.5) g/dl Globulin 2.8 Albumin/Globulin Ratio 1.00 TSH, Ultra Sensitive (0.35-7.0) uIu/mL Blood Type Gel Antibody Screen Crossmatch 11/18/16 11/18/16 11/18/16 Range/Units 11:15 11:15 16:50 WBC (5.0-10.0) 10^3/uL RBC (4.6-6.2) 10^6/uL Hgb (14.0-18.0) g/dL Hct (40.0-54.0) % MCV (80-100) fL MCH (27.0-34.0) pg MCHC (33.0-35.0) g/dL Plt Count (150-450) 10^3/uL Neut % (Auto) (42.2-75.2) % Lymph % (Auto) (20.5-50.1) % [place] % (Auto) (2-8) % Eos % (Auto) (1.0-3.0) % Baso % (Auto) (0.0-1.0) % Sodium (135-145) mmol/L Potassium (3.6-5.0) mmol/L Chloride (101-111) mmol/L Carbon Dioxide (21.0-31.0) mmol/L Anion Gap BUN (7-18) mg/dL Creatinine (0.6-1.3) mg/dL Est Cr Clr Drug Dosing mL/min Estimated GFR (MDRD) BUN/Creatinine Ratio Glucose (74-105) mg/dL POC Glucose 124 H (83-110) mg/dl Calcium (8.4-10.2) mg/dl Total Bilirubin (0.2-1.0) mg/dL AST (10-42) IU/L ALT (10-60) IU/L Alkaline Phosphatase (42-121) IU/L Troponin I 0.03 H* (0.00-0.02) ng/ml C-Reactive Protein (0.0-1.3) mg/dL B-Natriuretic Peptide 329 H (0-100) pg/ml Total Protein (6.7-8.2) g/dl Albumin (3.2-5.5) g/dl Globulin Albumin/Globulin Ratio TSH, Ultra Sensitive (0.35-7.0) uIu/mL Blood Type O NEGATIVE Gel Antibody Screen Negative Crossmatch See Detail 11/18/16 11/19/16 11/19/16 Range/Units 20:49 05:54 05:54 WBC 5.2 (5.0-10.0) 10^3/uL RBC 2.69 L (4.6-6.2) 10^6/uL Hgb 7.8 L (14.0-18.0) g/dL Hct 25.6 L (40.0-54.0) % MCV 95.2 (80-100) fL MCH 29.0 (27.0-34.0) pg MCHC 30.5 L (33.0-35.0) g/dL Plt Count 282 (150-450) 10^3/uL Neut % (Auto) 72.0 (42.2-75.2) % Lymph % (Auto) 13.4 L (20.5-50.1) % [place] % (Auto) 11.9 H (2-8) % Eos % (Auto) 1.9 (1.0-3.0) % Baso % (Auto) 0.8 (0.0-1.0) % Sodium 141 (135-145) mmol/L Potassium 2.8 L (3.6-5.0) mmol/L Chloride 104 (101-111) mmol/L Carbon Dioxide 31.0 (21.0-31.0) mmol/L Anion Gap 8.8 BUN 40 H (7-18) mg/dL Creatinine 2.3 H (0.6-1.3) mg/dL Est Cr Clr Drug Dosing 26.43 mL/min Estimated GFR (MDRD) 28 BUN/Creatinine Ratio Glucose 110 H (74-105) mg/dL POC Glucose 123 H (83-110) mg/dl Calcium 7.7 L (8.4-10.2) mg/dl Total Bilirubin (0.2-1.0) mg/dL AST (10-42) IU/L ALT (10-60) IU/L Alkaline Phosphatase (42-121) IU/L Troponin I (0.00-0.02) ng/ml C-Reactive Protein (0.0-1.3) mg/dL B-Natriuretic Peptide (0-100) pg/ml Total Protein (6.7-8.2) g/dl Albumin (3.2-5.5) g/dl Globulin Albumin/Globulin Ratio TSH, Ultra Sensitive (0.35-7.0) uIu/mL Blood Type Gel Antibody Screen Crossmatch 11/19/16 11/19/16 Range/Units 05:54 08:03 WBC (5.0-10.0) 10^3/uL RBC (4.6-6.2) 10^6/uL Hgb (14.0-18.0) g/dL Hct (40.0-54.0) % MCV (80-100) fL MCH (27.0-34.0) pg MCHC (33.0-35.0) g/dL Plt Count (150-450) 10^3/uL Neut % (Auto) (42.2-75.2) % Lymph % (Auto) (20.5-50.1) % [place] % (Auto) (2-8) % Eos % (Auto) (1.0-3.0) % Baso % (Auto) (0.0-1.0) % Sodium (135-145) mmol/L Potassium (3.6-5.0) mmol/L Chloride (101-111) mmol/L Carbon Dioxide (21.0-31.0) mmol/L Anion Gap BUN (7-18) mg/dL Creatinine (0.6-1.3) mg/dL Est Cr Clr Drug Dosing mL/min Estimated GFR (MDRD) BUN/Creatinine Ratio Glucose (74-105) mg/dL POC Glucose 103 (83-110) mg/dl Calcium (8.4-10.2) mg/dl Total Bilirubin (0.2-1.0) mg/dL AST (10-42) IU/L ALT (10-60) IU/L Alkaline Phosphatase (42-121) IU/L Troponin I (0.00-0.02) ng/ml C-Reactive Protein 4.5 H (0.0-1.3) mg/dL B-Natriuretic Peptide (0-100) pg/ml Total Protein (6.7-8.2) g/dl Albumin (3.2-5.5) g/dl Globulin Albumin/Globulin Ratio TSH, Ultra Sensitive 1.40 (0.35-7.0) uIu/mL Blood Type Gel Antibody Screen Crossmatch Med Orders - Current: Current Medications Albuterol/Ipratropium (Duoneb 3.0-0.5 Mg/3 Ml) 3 ml NEB Q6HRRT [facility] Last Admin: 11/19/16 06:01 Dose: 3 ml Amlodipine Besylate (Norvasc) 10 mg PO DAILY [facility] Last Admin: 11/19/16 08:30 Dose: 10 mg Atorvastatin Calcium (Lipitor) 20 mg PO BEDTIME [facility] Last Admin: 11/18/16 21:07 Dose: 20 mg Atropine Sulfate (Isopto Atropine 1% [facility]) 0 ml SL Q2H PRN PRN Reason: use orally for oral secretion Benazepril HCl (Lotensin) 40 mg PO DAILY [facility] Last Admin: 11/19/16 08:36 Dose: 40 mg Clonidine HCl (Catapres) 0.1 mg PO BID [facility] Last Admin: 11/19/16 08:32 Dose: 0.1 mg Furosemide (Lasix) 20 mg PO DAILY [facility] Glipizide (Glucotrol) 10 mg PO BIDAC [facility] Last Admin: 11/19/16 05:40 Dose: 10 mg Azithromycin 500 mg/ Sodium (Chloride) 250 mls @ 250 mls/hr IV Q24H [facility] Last Admin: 11/19/16 04:21 Dose: 250 mls/hr Ceftriaxone Sodium 1 gm/ (Sodium Chloride) 50 mls @ 100 mls/hr IV Q24H [facility] Last Admin: 11/19/16 03:47 Dose: 100 mls/hr Insulin Aspart (Novolog) 0 unit SUBCUT WITHMEALSANDBED [facility] PRN Reason: Protocol Last Admin: 11/19/16 08:30 Dose: Not Given Lorazepam (Ativan) 1 mg PO Q4H PRN PRN Reason: anxiety, air hunger Magnesium Hydroxide (Milk Of Magnesia) 30 ml PO Q6H PRN PRN Reason: Constipation Last Admin: 11/18/16 11:50 Dose: 30 ml Metoprolol Tartrate (Lopressor) 75 mg PO Q12H [facility] Last Admin: 11/19/16 08:31 Dose: 75 mg Morphine Sulfate (Morphine) 2 mg IVPUSH Q2H PRN PRN Reason: Pain (severe 7-10) Ondansetron HCl (Zofran) 4 mg IVPUSH Q4H PRN PRN Reason: Nausea/Vomiting Oxycodone HCl (Oxycodone) 5 mg PO Q4H PRN PRN Reason: Pain (moderate 4-6) Pantoprazole Sodium (Protonix Iv) 40 mg IVPUSH Q24H [facility] Last Admin: 11/19/16 02:57 Dose: 40 mg Polyethylene Glycol (Miralax) 17 gm PO DAILY PRN PRN Reason: Constipation Potassium Chloride (Klor-Con 10) 40 meq PO ONETIME ONE Stop: 11/19/16 18:01 Potassium Chloride (Klor-Con 10) 20 meq PO WITHBREAKFAST [facility] Promethazine HCl (Phenergan) 12.5 mg IM Q6H PRN PRN Reason: Nausea/Vomiting Sodium Chloride (Saline Flush) 10 ml FLUSH ASDIRECTED PRN PRN Reason: Keep Vein Open Last Admin: 11/19/16 05:27 Dose: 10 ml Spironolactone (Aldactone) 25 mg PO DAILY [facility] Last Admin: 11/19/16 08:31 Dose: 25 mg Zolpidem Tartrate (Ambien) 5 mg PO BEDTIME PRN PRN Reason: Sleep Discontinued Medications Docusate Sodium/Benzocaine (Enemeez Plus Mini Enema) 1 each RECTAL ONETIME ONE Stop: 11/18/16 11:14 Last Admin: 11/18/16 11:50 Dose: 1 each Furosemide (Lasix) 40 mg IVPUSH NOW ONE Stop: 11/18/16 01:18 Last Admin: 11/18/16 01:48 Dose: 40 mg Furosemide (Lasix) 20 mg IVPUSH BID [facility] Stop: 11/18/16 21:01 Last Admin: 11/18/16 10:53 Dose: 20 mg Furosemide (Lasix) 20 mg IVPUSH Q8H [facility] Stop: 11/19/16 03:01 Last Admin: 11/19/16 03:42 Dose: 20 mg Potassium Chloride 10 meq/ (Premix) 100 mls @ 100 mls/hr IV ONETIME ONE Stop: 11/18/16 02:17 Last Admin: 11/18/16 01:52 Dose: 100 mls/hr Albumin Human (Flexbumin 25%) 12.5 gm in 50 mls @ 100 mls/hr IV ONETIME ONE Stop: 11/18/16 03:42 Last Admin: 11/18/16 04:07 Dose: 100 mls/hr Albumin Human (Flexbumin 25%) 12.5 gm in 50 mls @ 100 mls/hr IV Q8H [facility] Stop: 11/19/16 03:29 Last Admin: 11/19/16 03:09 Dose: 100 mls/hr Metoprolol Tartrate (Lopressor) 75 mg PO Q12H [facility] Last Admin: 11/18/16 05:34 Dose: Not Given Non-Formulary Medication (Metformin [Glucophage]) 1,000 mg PO BIDMEALS [facility] Last Admin: 11/18/16 11:27 Dose: Not Given Potassium Chloride (Klor-Con 10) 20 meq PO ONETIME ONE Stop: 11/18/16 01:19 Last Admin: 11/18/16 01:45 Dose: 20 meq Potassium Chloride (Klor-Con 10) 40 meq PO BEDTIME [facility] Stop: 11/18/16 21:01 Last Admin: 11/18/16 21:09 Dose: 40 meq Potassium Chloride (Klor-Con 10) 60 meq PO ONETIME ONE Stop: 11/19/16 10:01 Last Admin: 11/19/16 10:57 Dose: 60 meq - Exam General: alert, oriented, cooperative, no acute distress. No: moderate distress , severe distress, sedated, lethargic, obtunded HEENT: Pupils equal, Pupils reactive, EOMI, Mucous membr. moist/pink Neck: supple, trachea midline, no JVD Lungs: Decreased breath sounds (but fair air exchange), Rhonchi. No: Crackles, Rales, Rub, Stridor, Wheezing Abdomen: bowel sounds present, soft, no tenderness, distension. No: rigidity, rebound, guarding, tenderness (Male) Exam: Deferred Back Exam: Normal Inspection, Full Range of Motion Extremities: normal pulses, no tenderness/swelling, no clubbing, no cyanosis, no calf tenderness, edema (trace bilateral lower extremity edema) Skin: warm, dry Neurological: no new focal deficit Psy/Mental Status: alert, normal affect, normal mood - Problem List & Annotations (1) Essential hypertension SNOMED Code(s): 05816686 Code(s): I10 - ESSENTIAL (PRIMARY) HYPERTENSION Status: Chronic Current Visit: Yes (2) Acute on chronic congestive heart failure SNOMED Code(s): 17619790 Code(s): I50.9 - HEART FAILURE, UNSPECIFIED Status: Acute Priority: High Current Visit: Yes (3) Shortness of breath SNOMED Code(s): 879419722 Code(s): R06.02 - SHORTNESS OF BREATH Status: Acute Current Visit: Yes (4) Hypoalbuminemia SNOMED Code(s): 433957475 Code(s): E88.09 - [facility] DISORDERS OF PLASMA-PROTEIN METABOLISM, NEC Status: Acute Current Visit: Yes (5) Hypokalemia SNOMED Code(s): 94126284 Code(s): E87.6 - HYPOKALEMIA Status: Acute Current Visit: Yes (6) Elevated bilirubin SNOMED Code(s): 898963853 Code(s): R17 - UNSPECIFIED JAUNDICE Status: Acute Current Visit: Yes (7) Anemia SNOMED Code(s): 355959884 Code(s): D64.9 - ANEMIA, UNSPECIFIED Status: Acute Current Visit: Yes Qualifiers: Anemia type: other cause Other causes of anemia: acute posthemorrhagic Qualified Code(s): D62 - Acute posthemorrhagic anemia (8) CKD (chronic kidney disease) SNOMED Code(s): 884139387 Code(s): N18.9 - CHRONIC KIDNEY DISEASE, UNSPECIFIED Status: Acute Current Visit: Yes Qualifiers: Chronic kidney disease stage: stage 3 (moderate) Qualified Code(s): N18.3 - Chronic kidney disease, stage 3 (moderate) (9) Congestive heart failure SNOMED Code(s): 42486834 Code(s): I50.9 - HEART FAILURE, UNSPECIFIED Status: Acute Current Visit: Yes Qualifiers: Congestive heart failure type: unspecified congestive heart failure type Congestive heart failure chronicity: acute Qualified Code(s): I50.9 - Heart failure, unspecified (10) Diabetes SNOMED Code(s): 58148729 Code(s): E11.9 - TYPE 2 DIABETES MELLITUS WITHOUT COMPLICATIONS Status: Chronic Current Visit: Yes Qualifiers: Diabetes mellitus type: type 2 (11) History of atrial fibrillation SNOMED Code(s): 544083450 Code(s): Z86.79 - PERSONAL HISTORY OF OTHER DISEASES OF THE CIRCULATORY SYSTEM Status: Chronic Current Visit: Yes - Problem List Review Problem List Initiated/Reviewed/Updated: Yes - My Orders Last 24 Hours: My Active Orders 11/18/16 11:13 Magnesium Hydroxide [Milk of Magnesia] 30 ml PO Q6H PRN 11/18/16 12:00 Insulin Aspart [NovoLOG] See Protocol SUBCUT WITHMEALSANDBED 11/18/16 12:01 Verify Patient Consent Obtain [RC] ASDIRECTED Transfuse RBC [Transfuse Red Blood Cells] [COMM] Routine 11/18/16 12:39 Flutter Valve Therapy [RT Chest Physiotherapy] [RC] ASDIRECTED 11/18/16 21:00 atorvaSTATin [Lipitor] 20 mg PO BEDTIME 11/19/16 10:04 Hemoccult, Stool [OCCULT BLOOD DIAGNOSTIC] [OP] Routine 11/19/16 10:06 Dietary Supplements [RC] TIDMEALS 11/19/16 18:00 Potassium Chloride [Klor-Con 10] 40 meq PO ONETIME ONE 11/19/16 Lunch Regular Diet [DIET] 11/20/16 05:11 B-TYPE NATRIURETIC PEPTIDE,BNP [CHEM] AM BASIC METABOLIC PANEL,BMP [CHEM] AM CBC WITH AUTO DIFF [HEME] AM CRP [C-REACTIVE PROTEIN] [CHEM] AM 11/20/16 08:00 Potassium Chloride [Klor-Con 10] 20 meq PO WITHBREAKFAST 11/20/16 09:00 Furosemide [Lasix] 20 mg PO DAILY - Plan Plan:: Possible Community Acquired Pneumonia Patient without fever and weakness chest x-ray did not show acute findings -Follow up with cultures -Start empiric antibiotics: azithromycin and Rocephin -he still requiring 5 oxygen to keep his saturation above 90. no significant change next week I may escalate his antibiotics Possible acute congestive heart failure BNP slightly improved after Lasix and albumin infusion echocardiogram showed ejection fraction was than 60% last of month continue with Lopressor and spironolactone he received one day of Lasix and albumin IV every 8 hours -I will continue on Lasix orally Intermittent Atrial fibrillation -heart rate is controlled he declined telemetry Continuous Lopressor, benzapril Acute on Chronic Kidney Disease possibly pre renal due hypoalbuminia is attributing Avoid Nephrotoxic agents Anemia Multifactorial Maybe attributing to his shortness breath Blood transfusion, One unit of RBC -his hemoglobin increased slightly -Recheck hemoglobin tomorrow -Ordered Hemoccult Abdomen wall bruise right/inferior/lateral to the umbilicus , small Mildly tender Looks old, possibly at the site of subcutaneous injection for the past Generalized weakness multifactorial They do not want physical therapy. Abdominal distention with possible stool impaction on abdomen x-ray he seemed to have distended colon and stool in the rectum. Patient has hyperactive bowel sounds he had multiple bowel movements after milk of magnesia and enema Cholelithiasis, asymptomatic was seen on abdomen CT scan from last month and abdomen x-ray from today patient denies abdomen pain He does not want any intervention Lung nodule, 3 mm left lower lobe seen on chest CT scan from last month patient and does not want to do any further workup even if it's cancer and even treatable Pseudo-hypocalcemia, do to low albumin Hypoalbuminemia Ensure before meals Diabetes Mellitus type II Hold metformin Continue on glipizide Sliding scale insulin Diabetic diet Blood glucose monitoring Essential Hypertension continue metoprolol, amlodipine, benzapril Hyperlipidemia Continue statin History of prostate cancer status post cryoablation prostate on 04/15/2013 with rise in PSA and negative biopsy. 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 no open wound appreciated Pressure dressing Diet patient requested general diet pharmaceuticals he became productive due to the history of recent retroperitoneal bleeding Code Status: DNI/DNR }
[2016-11-19] MEDS: atorvaSTATin 20 MG Tab PO SCH (20:37)
[2016-11-20] MEDS: Albuterol/Ipratropium 3.0-0.5 MG/3 ML Neb Soln NEB SCH ×6 (01:00→17:28)
[2016-11-20] MEDS: Pantoprazole 40 MG Vial IVPUSH SCH (02:58)
[2016-11-20] MEDS: cefTRIAXone 1 GM in Sodium Chloride 0.9% 50 ML IV SCH (03:10)
[2016-11-20] MEDS: Sodium Chloride 0.9% 10 ML Syringe FLUSH PRN (03:36)
[2016-11-20] MEDS: Azithromycin 500 MG in Sodium Chloride 0.9% 250 ML IV SCH (03:38)
[2016-11-20] MEDS: glipiZIDE 5 MG Tab PO SCH ×2 (06:01→15:57)
[2016-11-20] MEDS: Benazepril 10 MG Tab PO SCH (08:57)
[2016-11-20] MEDS: Potassium Chloride 10 MEQ Tab.ER PO SCH (08:57)
[2016-11-20] MEDS: cloNIDine 0.1 MG Tab PO SCH ×2 (08:59→20:27)
[2016-11-20] MEDS: Furosemide 20 MG Tab PO SCH (08:59)
[2016-11-20] MEDS: Spironolactone 25 MG Tab PO SCH (08:59)
[2016-11-20] MEDS: amLODIPine 5 MG Tab PO SCH (09:00)
[2016-11-20] MEDS: Insulin Aspart 100 Units/ML 3 ML Pen SUBCUT SCH ×4 (09:01→21:29)
[2016-11-20] MEDS ORDERED: guaiFENesin 600 MG Tab.ER PO PRN (10:29)
[2016-11-20] MEDS: Metoprolol Tartrate 25 MG Tab PO SCH ×2 (10:29→20:30)
--- NOTE | 2016-11-20 10:45 | PCM.PN ---
{null, - General Info Date of Service: 11/20/16 Admission Dx/Problem (Free Text): Admission Diagnosis/Problem Admission Diagnosis/Problem Atrial fibrillation Subjective Update: patient stated that he is feeling better. he is still feeling short of breath mildly, but cough improved. he is still passing stool and gas. He and his again stated that his abdomen has been distended for over a year. He declined doing workup for his distended abdomen. He denies fever, chills, nausea, vomiting, abdominal pain, chest pain, unilateral weakness, or any other symptoms. - Patient Data Vitals - most recent: Last Vital Signs Temp 36.7 C 11/20/16 07:00 Pulse 74 11/20/16 10:29 Resp 20 11/20/16 07:00 BP 156/62 H 11/20/16 10:29 Pulse Ox 93 L 11/20/16 07:00 Weight - most recent: 93.077 kg I&O - last 24 hours: Intake & Output 11/19/16 11/20/16 11/20/16 22:59 06:59 14:59 Intake Total 1520 997 Balance 1520 997 Lab Results last 24 hrs: Laboratory Results - last 24 hr 11/19/16 11/19/16 11/19/16 Range/Units 11:01 16:58 20:57 WBC (5.0-10.0) 10^3/uL RBC (4.6-6.2) 10^6/uL Hgb (14.0-18.0) g/dL Hct (40.0-54.0) % MCV (80-100) fL MCH (27.0-34.0) pg MCHC (33.0-35.0) g/dL Plt Count (150-450) 10^3/uL Neut % (Auto) (42.2-75.2) % Lymph % (Auto) (20.5-50.1) % [place] % (Auto) (2-8) % Eos % (Auto) (1.0-3.0) % Baso % (Auto) (0.0-1.0) % Sodium (135-145) mmol/L Potassium (3.6-5.0) mmol/L Chloride (101-111) mmol/L Carbon Dioxide (21.0-31.0) mmol/L Anion Gap BUN (7-18) mg/dL Creatinine (0.6-1.3) mg/dL Est Cr Clr Drug Dosing mL/min Estimated GFR (MDRD) Glucose (74-105) mg/dL POC Glucose 142 H 349 H 235 H (83-110) mg/dl Calcium (8.4-10.2) mg/dl Phosphorus (2.5-4.6) mg/dL Magnesium (1.8-2.5) mg/dL C-Reactive Protein (0.0-1.3) mg/dL B-Natriuretic Peptide (0-100) pg/ml 11/20/16 11/20/16 11/20/16 Range/Units 05:56 06:00 06:00 WBC 5.5 (5.0-10.0) 10^3/uL RBC 2.82 L (4.6-6.2) 10^6/uL Hgb 8.2 L (14.0-18.0) g/dL Hct 27.0 L (40.0-54.0) % MCV 95.7 (80-100) fL MCH 29.1 (27.0-34.0) pg MCHC 30.4 L (33.0-35.0) g/dL Plt Count 287 (150-450) 10^3/uL Neut % (Auto) 72.5 (42.2-75.2) % Lymph % (Auto) 12.6 L (20.5-50.1) % [place] % (Auto) 11.9 H (2-8) % Eos % (Auto) 2.6 (1.0-3.0) % Baso % (Auto) 0.4 (0.0-1.0) % Sodium 142 (135-145) mmol/L Potassium 3.6 (3.6-5.0) mmol/L Chloride 107 (101-111) mmol/L Carbon Dioxide 29.0 (21.0-31.0) mmol/L Anion Gap 9.6 BUN 34 H (7-18) mg/dL Creatinine 2.0 H (0.6-1.3) mg/dL Est Cr Clr Drug Dosing 30.40 mL/min Estimated GFR (MDRD) 33 Glucose 136 H (74-105) mg/dL POC Glucose (83-110) mg/dl Calcium 8.1 L (8.4-10.2) mg/dl Phosphorus 3.1 (2.5-4.6) mg/dL Magnesium 2.0 (1.8-2.5) mg/dL C-Reactive Protein (0.0-1.3) mg/dL B-Natriuretic Peptide 307 H (0-100) pg/ml 11/20/16 11/20/16 Range/Units 06:00 07:37 WBC (5.0-10.0) 10^3/uL RBC (4.6-6.2) 10^6/uL Hgb (14.0-18.0) g/dL Hct (40.0-54.0) % MCV (80-100) fL MCH (27.0-34.0) pg MCHC (33.0-35.0) g/dL Plt Count (150-450) 10^3/uL Neut % (Auto) (42.2-75.2) % Lymph % (Auto) (20.5-50.1) % [place] % (Auto) (2-8) % Eos % (Auto) (1.0-3.0) % Baso % (Auto) (0.0-1.0) % Sodium (135-145) mmol/L Potassium (3.6-5.0) mmol/L Chloride (101-111) mmol/L Carbon Dioxide (21.0-31.0) mmol/L Anion Gap BUN (7-18) mg/dL Creatinine (0.6-1.3) mg/dL Est Cr Clr Drug Dosing mL/min Estimated GFR (MDRD) Glucose (74-105) mg/dL POC Glucose 116 H (83-110) mg/dl Calcium (8.4-10.2) mg/dl Phosphorus (2.5-4.6) mg/dL Magnesium (1.8-2.5) mg/dL C-Reactive Protein 3.2 H (0.0-1.3) mg/dL B-Natriuretic Peptide (0-100) pg/ml David Results last 24 hrs: Microbiology 11/19/16 12:50 Stool Occult Blood (DAVID) - Final Stool / Feces Med Orders - Current: Current Medications Albuterol/Ipratropium (Duoneb 3.0-0.5 Mg/3 Ml) 3 ml NEB Q6HRRT MARILUZ Last Admin: 11/20/16 07:33 Dose: 3 ml Amlodipine Besylate (Norvasc) 10 mg PO DAILY [facility] Last Admin: 11/20/16 09:00 Dose: 10 mg Atorvastatin Calcium (Lipitor) 20 mg PO BEDTIME [facility] Last Admin: 11/19/16 20:37 Dose: 20 mg Atropine Sulfate (Isopto Atropine 1% Ophth Soln) 0 ml SL Q2H PRN PRN Reason: use orally for oral secretion Benazepril HCl (Lotensin) 40 mg PO DAILY [facility] Last Admin: 11/20/16 08:57 Dose: 40 mg Clonidine HCl (Catapres) 0.1 mg PO BID [facility] Last Admin: 11/20/16 08:59 Dose: 0.1 mg Furosemide (Lasix) 20 mg PO DAILY [facility] Last Admin: 11/20/16 08:59 Dose: 20 mg Glipizide (Glucotrol) 10 mg PO BIDAC [facility] Last Admin: 11/20/16 06:01 Dose: 10 mg Guaifenesin (Mucinex) 600 mg PO TID PRN PRN Reason: Cough Azithromycin 500 mg/ Sodium (Chloride) 250 mls @ 250 mls/hr IV Q24H [facility] Last Admin: 11/20/16 03:38 Dose: 250 mls/hr Ceftriaxone Sodium 1 gm/ (Sodium Chloride) 50 mls @ 100 mls/hr IV Q24H [facility] Last Admin: 11/20/16 03:10 Dose: 100 mls/hr Insulin Aspart (Novolog) 0 unit SUBCUT WITHMEALSANDBED [facility] PRN Reason: Protocol Last Admin: 11/20/16 09:01 Dose: Not Given Lorazepam (Ativan) 1 mg PO Q4H PRN PRN Reason: anxiety, air hunger Magnesium Hydroxide (Milk Of Magnesia) 30 ml PO Q6H PRN PRN Reason: Constipation Last Admin: 11/18/16 11:50 Dose: 30 ml Metoprolol Tartrate (Lopressor) 75 mg PO Q12H [facility] Last Admin: 11/20/16 10:29 Dose: 75 mg Morphine Sulfate (Morphine) 2 mg IVPUSH Q2H PRN PRN Reason: Pain (severe 7-10) Ondansetron HCl (Zofran) 4 mg IVPUSH Q4H PRN PRN Reason: Nausea/Vomiting Oxycodone HCl (Oxycodone) 5 mg PO Q4H PRN PRN Reason: Pain (moderate 4-6) Pantoprazole Sodium (Protonix Iv) 40 mg IVPUSH Q24H [facility] Last Admin: 11/20/16 02:58 Dose: 40 mg Polyethylene Glycol (Miralax) 17 gm PO DAILY PRN PRN Reason: Constipation Potassium Chloride (Klor-Con 10) 20 meq PO WITHBREAKFAST [facility] Last Admin: 11/20/16 08:57 Dose: 20 meq Promethazine HCl (Phenergan) 12.5 mg IM Q6H PRN PRN Reason: Nausea/Vomiting Sodium Chloride (Saline Flush) 10 ml FLUSH ASDIRECTED PRN PRN Reason: Keep Vein Open Last Admin: 11/20/16 03:36 Dose: 10 ml Spironolactone (Aldactone) 25 mg PO DAILY [facility] Last Admin: 11/20/16 08:59 Dose: 25 mg Zolpidem Tartrate (Ambien) 5 mg PO BEDTIME PRN PRN Reason: Sleep Discontinued Medications Docusate Sodium/Benzocaine (Enemeez Plus Mini Enema) 1 each RECTAL ONETIME ONE Stop: 11/18/16 11:14 Last Admin: 11/18/16 11:50 Dose: 1 each Furosemide (Lasix) 40 mg IVPUSH NOW ONE Stop: 11/18/16 01:18 Last Admin: 11/18/16 01:48 Dose: 40 mg Furosemide (Lasix) 20 mg IVPUSH BID [facility] Stop: 11/18/16 21:01 Last Admin: 11/18/16 10:53 Dose: 20 mg Furosemide (Lasix) 20 mg IVPUSH Q8H [facility] Stop: 11/19/16 03:01 Last Admin: 11/19/16 03:42 Dose: 20 mg Potassium Chloride 10 meq/ (Premix) 100 mls @ 100 mls/hr IV ONETIME ONE Stop: 11/18/16 02:17 Last Admin: 11/18/16 01:52 Dose: 100 mls/hr Albumin Human (Flexbumin 25%) 12.5 gm in 50 mls @ 100 mls/hr IV ONETIME ONE Stop: 11/18/16 03:42 Last Admin: 11/18/16 04:07 Dose: 100 mls/hr Albumin Human (Flexbumin 25%) 12.5 gm in 50 mls @ 100 mls/hr IV Q8H [facility] Stop: 11/19/16 03:29 Last Admin: 11/19/16 03:09 Dose: 100 mls/hr Metoprolol Tartrate (Lopressor) 75 mg PO Q12H [facility] Last Admin: 11/18/16 05:34 Dose: Not Given Non-Formulary Medication (Metformin [Glucophage]) 1,000 mg PO BIDMEALS [facility] Last Admin: 11/18/16 11:27 Dose: Not Given Potassium Chloride (Klor-Con 10) 20 meq PO ONETIME ONE Stop: 11/18/16 01:19 Last Admin: 11/18/16 01:45 Dose: 20 meq Potassium Chloride (Klor-Con 10) 40 meq PO BEDTIME [facility] Stop: 11/18/16 21:01 Last Admin: 11/18/16 21:09 Dose: 40 meq Potassium Chloride (Klor-Con 10) 60 meq PO ONETIME ONE Stop: 11/19/16 10:01 Last Admin: 11/19/16 10:57 Dose: 60 meq Potassium Chloride (Klor-Con 10) 40 meq PO ONETIME ONE Stop: 11/19/16 18:01 Last Admin: 11/19/16 17:44 Dose: 40 meq - Exam General: alert, oriented, cooperative, no acute distress, other (he looks better today). No: moderate distress, severe distress, sedated, lethargic, obtunded HEENT: Pupils equal, Pupils reactive, EOMI, Mucous membr. moist/pink Neck: supple, trachea midline, no JVD Lungs: Normal respiratory effort, Decreased breath sounds (with severe air exchange), Rhonchi. No: Crackles, Rales, Rub, Stridor, Wheezing Cardiovascular: Regular Rate, Regular Rhythm Abdomen: soft, no tenderness, distension. No: rigidity, rebound, guarding, tenderness, abnormal bowel sounds (Male) Exam: Deferred Back Exam: Normal Inspection, Full Range of Motion Extremities: normal pulses, no tenderness/swelling, no clubbing, no cyanosis, no calf tenderness, edema (trace lower extremity edema) Skin: warm, dry Neurological: no new focal deficit Psy/Mental Status: alert, normal affect, normal mood - Problem List & Annotations (1) Essential hypertension SNOMED Code(s): 59312363 Code(s): I10 - ESSENTIAL (PRIMARY) HYPERTENSION Status: Chronic Current Visit: Yes (2) Acute on chronic congestive heart failure SNOMED Code(s): 53325294 Code(s): I50.9 - HEART FAILURE, UNSPECIFIED Status: Acute Priority: High Current Visit: Yes (3) Shortness of breath SNOMED Code(s): 527941520 Code(s): R06.02 - SHORTNESS OF BREATH Status: Acute Current Visit: Yes (4) Hypoalbuminemia SNOMED Code(s): 071248272 Code(s): E88.09 - [facility] DISORDERS OF PLASMA-PROTEIN METABOLISM, NEC Status: Acute Current Visit: Yes (5) Hypokalemia SNOMED Code(s): 89060098 Code(s): E87.6 - HYPOKALEMIA Status: Acute Current Visit: Yes (6) Elevated bilirubin SNOMED Code(s): 048106235 Code(s): R17 - UNSPECIFIED JAUNDICE Status: Acute Current Visit: Yes (7) Anemia SNOMED Code(s): 310691403 Code(s): D64.9 - ANEMIA, UNSPECIFIED Status: Acute Current Visit: Yes Qualifiers: Anemia type: other cause Other causes of anemia: acute posthemorrhagic Qualified Code(s): D62 - Acute posthemorrhagic anemia (8) CKD (chronic kidney disease) SNOMED Code(s): 188266255 Code(s): N18.9 - CHRONIC KIDNEY DISEASE, UNSPECIFIED Status: Acute Current Visit: Yes Qualifiers: Chronic kidney disease stage: stage 3 (moderate) Qualified Code(s): N18.3 - Chronic kidney disease, stage 3 (moderate) (9) Congestive heart failure SNOMED Code(s): 53969277 Code(s): I50.9 - HEART FAILURE, UNSPECIFIED Status: Acute Current Visit: Yes Qualifiers: Congestive heart failure type: unspecified congestive heart failure type Congestive heart failure chronicity: acute Qualified Code(s): I50.9 - Heart failure, unspecified (10) Diabetes SNOMED Code(s): 68180651 Code(s): E11.9 - TYPE 2 DIABETES MELLITUS WITHOUT COMPLICATIONS Status: Chronic Current Visit: Yes Qualifiers: Diabetes mellitus type: type 2 (11) History of atrial fibrillation SNOMED Code(s): 270899397 Code(s): Z86.79 - PERSONAL HISTORY OF OTHER DISEASES OF THE CIRCULATORY SYSTEM Status: Chronic Current Visit: Yes - Problem List Review Problem List Initiated/Reviewed/Updated: Yes - My Orders Last 24 Hours: My Active Orders 11/19/16 10:06 Dietary Supplements [RC] TIDMEALS 11/19/16 Lunch Regular Diet [DIET] 11/20/16 08:00 Potassium Chloride [Klor-Con 10] 20 meq PO WITHBREAKFAST 11/20/16 09:00 Furosemide [Lasix] 20 mg PO DAILY 11/20/16 09:44 OT Evaluation and Treatment [CONS] Routine PT Evaluation and Treatment [CONS] Routine 11/20/16 10:29 guaiFENesin [Mucinex] 600 mg PO TID PRN 11/20/16 10:31 Flutter Valve Therapy [RT Chest Physiotherapy] [RC] ASDIRECTED Incentive Spirometry [RT Incentive Spirometry] [RC] ASDIRECTED 11/20/16 10:33 CXR [Chest 2V] [CR] Routine 11/20/16 10:34 Communication Order [RC] ROUTINE 11/21/16 05:11 CBC WITH AUTO DIFF [HEME] AM CMP [COMPREHENSIVE METABOLIC PN,CMP] [CHEM] AM CRP [C-REACTIVE PROTEIN] [CHEM] AM - Plan Plan:: Possible Community Acquired Pneumonia Patient without fever and weakness chest x-ray on admission did not show acute findings -Follow up with cultures -empiric antibiotics: azithromycin and Rocephin -I do not see need to escalate his antibiotic at this time -repeat chest x-ray -he still requiring 5 l/m of nasal oxygen Incentive spirometer and flutter to be used Possible acute congestive heart failure BNP slightly improved after Lasix and albumin infusion echocardiogram showed ejection fraction was than 60% last of month continue with Lopressor and spironolactone he received one day of Lasix and albumin IV every 8 hours -I will continue on Lasix orally daily Intermittent Atrial fibrillation -heart rate is controlled he declined telemetry Continuous Lopressor, benzapril Acute on Chronic Kidney Disease possibly pre renal due hypoalbuminia is attributing Avoid Nephrotoxic agents Anemia Multifactorial Maybe attributing to his shortness breath Blood transfusion, One unit of RBC Hemoccult is positive -his hemoglobin increased slightly -Recheck hemoglobin tomorrow -I called Dr. Montano for consult and still waiting to hear back from him Abdomen wall bruise right/inferior/lateral to the umbilicus , small Mildly tender Looks old, possibly at the site of subcutaneous injection for the past Generalized weakness multifactorial consult physical therapy and occupational therapy Abdominal distention with possible stool impaction on abdomen x-ray he seemed to have distended colon and stool in the rectum. Patient has hyperactive bowel sounds he had multiple bowel movements after milk of magnesia and enema -I called Dr. Montano for consult and still waiting to hear back from him Cholelithiasis, asymptomatic was seen on abdomen CT scan from last month and abdomen x-ray from today patient denies abdomen pain He does not want any intervention Lung nodule, 3 mm left lower lobe seen on chest CT scan from last month patient and does not want to do any further workup even if it's cancer and even treatable Pseudo-hypocalcemia, do to low albumin Hypoalbuminemia Ensure with meals Diabetes Mellitus type II Hold metformin Continue on glipizide Sliding scale insulin Diabetic diet Blood glucose monitoring Essential Hypertension continue metoprolol, amlodipine, benzapril Hyperlipidemia Continue statin History of prostate cancer status post cryoablation prostate on 04/15/2013 with rise in PSA and negative biopsy. Barriga catheter for comfort Possible metastatic disease to ribs and elbow, noted in his chart from [facility] patient and do not want to pursue any further workup Gluteal callus, most likely from decubitus pressure. no open wound appreciated Pressure dressing Diet patient requested general diet avoid pharmaceuticalDVT prophylaxis due to the history of recent retroperitoneal bleeding Avoid aspirin due to retroperitoneal bleeding and GI bleed SCDs and andrez hose and ambulation for DVT prophylaxis Code Status: DNI/DNR }
[2016-11-20] MEDS ORDERED: Barium Sulfate w/v 2.1% Oral Susp 450 ML Bottle PO ONE ×2 (11:30→12:30)
[2016-11-20] MEDS: Iron Polysaccharides Complex 150 MG Cap PO SCH ×2 (13:41→20:28)
--- NOTE | 2016-11-20 14:35 | CT ---
{null, CLINICAL HISTORY: 76-year-old 205 pound hypertensive and diabetic male with abdominal distention and recent retroperitoneal "bleed" (CT scan 03 November 2016). Bruised back associated with fall. SCAN TECHNIQUE: Volume acquisition of data from the abdomen and pelvis obtained without oral or IV c ontrast (elevated serum creatinine) while the patient was lying supine on the Siemens multislice CT scanner [place], [place]. All data archived in the PACS system for st orage, reformatting and study. INTERPRETATION: Abnormal but generally unchanged in appearance since CT images October, (3 wee ks before). 1. *Asymmetric large retroperitoneal mass extending from the inferior margin of the liver down throu gh the iliopsoas into the pelvis on the right that appears to be similar volume and mixed density to that demonstrated on 03 November 2016 exam, i.e., probable hematoma, unchanged. 2. Cardiomegaly and bibasilar dependent pleural effusions (right greater than left) with underlying lower lobe atelectasis and infiltrate or infarct in the right lung base. 3. Cholelithiasis (solitary large dependent intraluminal gallstone). No dilatation of the intrahepat ic biliary ducts. Normal spleen and unenhanced kidneys. Small 2 cm right adrenal adenoma. 4. Densely calcified "cast" normal caliber aortoiliac vessels. 5. Abnormal prostate gland with dense calcifications centrally. Small volume urinary bladder. 6. Diverticulosis transverse colon. No new intraperitoneal mass lesion, signs of mechanical bowel obstruction, ascites or free air. 7. Lumbar L3-4 and L4-5 disc disease with associated arthritic changes of the spine. }
--- NOTE | 2016-11-20 14:36 | CR ---
{null, CLINICAL HISTORY: 76-year-old male with large right retroperitoneal hematoma and shortness of breath . INTERPRETATION: PA lateral chest films abnormal. Cardiomegaly with bibasilar dependent pleural effusions (right greater than left) and underlying rig ht lower lobe atelectasis or infiltrate but no current signs of alveolar edema. No lung mass, hilar lymphadenopathy or other focal lobar consolidation. }
[2016-11-20] MEDS ORDERED: Furosemide 20 MG Tab PO ONE (15:30)
--- NOTE | 2016-11-20 15:50 | PN ---
{null, DATE: 11/20/[address] abdomen and pelvis report reviewed. Does have significant- sized hematoma extending significant area, right side of the abdomen. RECOMMENDATIONS: Patient's hemoglobin and hematocrit values to be monitored closely and packed cell transfusions as needed. Because of huge hematoma not resolving yet, we will keep away from anticoagulants. As per request of the patient, conservative treatment, has Hemoccult positive stools. If his status changes and the patient acceptable, we will proceed with and endoscopic evaluation as indicated. [facility] /[id number] }
--- NOTE | 2016-11-20 20:02 | CONS ---
{null, SERVICE DATE: 11/20/2016 HISTORY OF PRESENT ILLNESS: This 76-year-old gentleman seen in Gastroenterology consultation at the request of Dr. Ramey for further evaluation and management of abdominal distention as well as anemia. Detailed information gathered and reviewed from extensive of electronic records here. The patient denies any upper abdominal pain, dyspepsia, or heartburn. No regurgitation. No vomiting. Appetite good. Denies any lower abdominal cramps. He was hospitalized in [facility] for about 10 days at which time he required multiple transfusions related to retroperitoneal bleeding, the patient on anticoagulation for atrial fibrillation before. He had difficulties of shortness of breath as well as some palpitations at home and rehospitalized here a couple of days ago. Has had cough with some expectoration, even close less pronounced today, no pleuritic chest pain. Denies any increasing shortness of breath in the past 24 hours. No documented fever at home. Denies any chills. No change in urinary habits. No progressive leg edema. No leg cramps. Had liquid stools at least couple of times a day in the past few weeks, did have similar difficulties before. No bright red rectal bleeding. Had some dark stools when he was hospitalized in [place], none now. Denies any postural dizziness. No undue malaise. SOCIAL HISTORY: Lives with his , samm by occupation, still does some work. Does not smoke cigarettes. Does not drink alcohol. Does not take much of coffee. Takes soft drinks. No milk intolerance. FAMILY HISTORY: Both parents nonsmokers with lung cancer. Negative for IBD, colon polyp, or colon cancer. No peptic ulcer disease or liver disease. PAST ILLNESS: Exogenous obesity; diabetes mellitus; hypertension; hyperlipidemia; paroxysmal atrial fibrillation, status post retroperitoneal bleeding related to anticoagulation; anemia, multifactorial, status post therapy for prostatic adenocarcinoma, status post appendectomy; history of peptic ulcer disease, no previous hepatitis. MEDICATIONS: He is on at this time include: 1. Albuterol/ipratropium nebulizer. 2. Amlodipine. 3. Atorvastatin. 4. Atropine eye drops. 5. Azithromycin IV. 6. Benazepril. 7. Ceftriaxone IV. 8. Clonidine. 9. Furosemide. 10.Glipizide. 11.Guaifenesin. 12.Insulin aspart. 13.Lorazepam p.r.n. 14.Milk of magnesia p.r.n. 15.Metoprolol. 16.Morphine IV p.r.n. 17.Zofran IV p.r.n. 18.Oxycodone p.r.n. 19.Pantoprazole 40 mg IV every 24 hours. 20.MiraLax p.r.n. 21.Pradaxa 150 t.i.d. 22.KCl 20 mEq daily. 23.Phenergan IM q.6 h. p.r.n. 24.Spironolactone. 25.Zolpidem p.r.n. PHYSICAL EXAMINATION: GENERAL: Alert and oriented, appears not to be in distress, not short of breath at rest. Weight 205 pounds, BP 152/62, and O2 saturation 91%. GENERAL: Short of breath with physical exertion. ENT: Unremarkable. No carotid bruits heard. No thyroid nodules felt. No generalized lymphadenopathy. LUNGS: Diminished breath sounds. No adventitious sounds heard. S1 and S2, regular. No CVA or spinal tenderness noted. No phlebitis. No CHF. ABDOMEN: Distended. Mass resistance felt right flank area and right periumbilical area. Bowel sounds heard. RECTAL: Deferred. No tremors. No peripheral signs of chronic liver disease noted. INVESTIGATIONS: Hemoglobin 8.2, hematocrit 27, MCHC low, platelet count 287,00, and WBC 5500 with 73 neutrophils. Chemistry panel shows abnormal BUN 34, creatinine 2, glucose 136, calcium 8.1, CRP high at 3.2, and BNP 307 high. Stools for Hemoccult random reported positive. IMPRESSION: Anemia multifactorial ,exogenous obesity, paroxysm atrial fibrillation, status post recent retroperitoneal bleed, gastrointestinal bleeding, essential hypertension, congestive heart failure, hypoalbuminemia, chronic kidney disease, type 2 diabetes mellitus, status post prostatic adenocarcinoma therapy, status post appendectomy. RECOMMENDATIONS: CT abdomen and pelvis without intravenous, but with oral contrast, as to assess intra-abdominal bleeding he has had. He is anemic and does have Hemoccult positive stools. The patient wants to be managed conservatively at this time. We will periodically check hemoglobin and hematocrit on this examination and decide on endoscopic evaluation if he is acceptable. Requires pulmonary status to be stabilized. TSH, PT, and PTT, any further evaluation and management to be decided dependent on CT abdomen and pelvis findings will follow. [facility] /[id number] [id number] }
[2016-11-20] MEDS: atorvaSTATin 20 MG Tab PO SCH (20:29)
[2016-11-21] MEDS: Albuterol/Ipratropium 3.0-0.5 MG/3 ML Neb Soln NEB SCH ×4 (01:30→17:42)
[2016-11-21] MEDS: Albumin 25% 12.5 GM/50 ML BAG IV SCH ×3 (02:17→17:42)
[2016-11-21] MEDS: Pantoprazole 40 MG Vial IVPUSH SCH (03:02)
[2016-11-21] MEDS: Sodium Chloride 0.9% 10 ML Syringe FLUSH PRN ×2 (03:02→03:40)
[2016-11-21] MEDS: Azithromycin 500 MG in Sodium Chloride 0.9% 250 ML IV SCH (03:53)
[2016-11-21] MEDS ORDERED: cefTRIAXone 1 GM in Sodium Chloride 0.9% 50 ML IV SCH (04:00)
[2016-11-21] MEDS: glipiZIDE 5 MG Tab PO SCH ×2 (05:54→17:19)
[2016-11-21] MEDS ORDERED: Furosemide 40 MG/4 ML VIAL IVPUSH ONE (09:23)
[2016-11-21] MEDS: Benazepril 10 MG Tab PO SCH (09:39)
[2016-11-21] MEDS: Potassium Chloride 10 MEQ Tab.ER PO SCH (09:39)
[2016-11-21] MEDS: cloNIDine 0.1 MG Tab PO SCH ×2 (09:40→20:47)
[2016-11-21] MEDS: Iron Polysaccharides Complex 150 MG Cap PO SCH ×2 (09:40→20:48)
[2016-11-21] MEDS: Metoprolol Tartrate 25 MG Tab PO SCH ×2 (09:40→20:46)
[2016-11-21] MEDS: Spironolactone 25 MG Tab PO SCH (09:40)
[2016-11-21] MEDS: Furosemide 20 MG Tab PO SCH (09:41)
[2016-11-21] MEDS: amLODIPine 5 MG Tab PO SCH (09:41)
[2016-11-21] MEDS: Insulin Aspart 100 Units/ML 3 ML Pen SUBCUT SCH ×4 (09:42→21:04)
--- NOTE | 2016-11-21 10:24 | PN ---
{null, DATE: 11/21/2016 SUBJECTIVE: Denies any abdominal pain. No dyspepsia, appetite good. He continues to have some cough as well as expectoration. Denies any increasing shortness of breath. No pleuritic chest pain. No postural dizziness. OBJECTIVE: Vital Signs: Weight 197 pounds, temperature 98.7, BP 145/60, O2 saturation 94, short of breath with physical exertion. General: Alert and oriented. Lungs: Diminished breath sounds. Few bilateral scattered rhonchi heard. Heart: S1, S2 irregular at 120 per minute. Abdomen: Obese, soft. Some tenderness elicited right side abdomen. Bowel sounds active. INVESTIGATIONS: Hemoglobin 7.9, hematocrit 26.5, platelet 264,000. WBC 6300 with 74 neutrophils. Chemistry panel shows a normal BUN 28, creatinine 1.8, calcium 8.1, bilirubin 1.1. CRP 6.4, protein 5.9, albumin 2.9. RECOMMENDATIONS: Close observation and frequent vital signs, packed cell transfusions if needed. Further Cardiology evaluation and management with reference to atrial fibrillation. Later, we will proceed with endoscopic evaluation as indicated with reference to Hemoccult positive stools. IMPRESSION: Paroxysmal atrial fibrillation, intraabdominal bleed, anticoagulation related, anemia, multifactorial, type 2 diabetes mellitus, hypertension, and bacterial pneumonitis. [facility] /[id number] }
[2016-11-21] MEDS ORDERED: Furosemide 20 MG/2 ML VIAL IVPUSH SCH ×2 (11:00→17:00)
--- NOTE | 2016-11-21 11:09 | PCM.PN ---
{null, - General Info Date of Service: 11/21/16 Admission Dx/Problem (Free Text): Admission Diagnosis/Problem Admission Diagnosis/Problem Atrial fibrillation Subjective Update: patient stated that he is feeling better. he states that his energy, cough and shortness of breath improved. he is passing stool and gas. He denies fever, chills, nausea, vomiting, abdominal pain, chest pain, unilateral weakness, or any other symptoms. - Patient Data Vitals - most recent: Last Vital Signs Temp 37.1 C 11/21/16 07:00 Pulse 103 H 11/21/16 09:40 Resp 20 11/21/16 07:00 BP 145/60 H 11/21/16 09:41 Pulse Ox 94 L 11/21/16 07:00 Weight - most recent: 89.443 kg I&O - last 24 hours: Intake & Output 11/20/16 11/21/16 11/21/16 22:59 06:59 14:59 Intake Total 950 704 Output Total 150 75 600 Balance 800 629 -600 Lab Results last 24 hrs: Laboratory Results - last 24 hr 11/18/16 11/20/16 11/20/16 Range/Units 11:15 11:07 16:50 WBC (5.0-10.0) 10^3/uL RBC (4.6-6.2) 10^6/uL Hgb (14.0-18.0) g/dL Hct (40.0-54.0) % MCV (80-100) fL MCH (27.0-34.0) pg MCHC (33.0-35.0) g/dL Plt Count (150-450) 10^3/uL Neut % (Auto) (42.2-75.2) % Lymph % (Auto) (20.5-50.1) % [place] % (Auto) (2-8) % Eos % (Auto) (1.0-3.0) % Baso % (Auto) (0.0-1.0) % Sodium (135-145) mmol/L Potassium (3.6-5.0) mmol/L Chloride (101-111) mmol/L Carbon Dioxide (21.0-31.0) mmol/L Anion Gap BUN (7-18) mg/dL Creatinine (0.6-1.3) mg/dL Est Cr Clr Drug Dosing mL/min Estimated GFR (MDRD) BUN/Creatinine Ratio Glucose (74-105) mg/dL POC Glucose 227 H 122 H (83-110) mg/dl Calcium (8.4-10.2) mg/dl Total Bilirubin (0.2-1.0) mg/dL AST (10-42) IU/L ALT (10-60) IU/L Alkaline Phosphatase (42-121) IU/L C-Reactive Protein (0.0-1.3) mg/dL B-Natriuretic Peptide (0-100) pg/ml Total Protein (6.7-8.2) g/dl Albumin (3.2-5.5) g/dl Globulin Albumin/Globulin Ratio Blood Type O NEGATIVE Gel Antibody Screen Negative Crossmatch See Detail 11/20/16 11/21/16 11/21/16 Range/Units 21:05 05:42 05:42 WBC 6.3 (5.0-10.0) 10^3/uL RBC 2.75 L (4.6-6.2) 10^6/uL Hgb 7.9 L (14.0-18.0) g/dL Hct 26.5 L (40.0-54.0) % MCV 96.4 (80-100) fL MCH 28.7 (27.0-34.0) pg MCHC 29.8 L (33.0-35.0) g/dL Plt Count 264 (150-450) 10^3/uL Neut % (Auto) 74.0 (42.2-75.2) % Lymph % (Auto) 13.4 L (20.5-50.1) % [place] % (Auto) 10.1 H (2-8) % Eos % (Auto) 2.2 (1.0-3.0) % Baso % (Auto) 0.3 (0.0-1.0) % Sodium (135-145) mmol/L Potassium (3.6-5.0) mmol/L Chloride (101-111) mmol/L Carbon Dioxide (21.0-31.0) mmol/L Anion Gap BUN (7-18) mg/dL Creatinine (0.6-1.3) mg/dL Est Cr Clr Drug Dosing mL/min Estimated GFR (MDRD) BUN/Creatinine Ratio Glucose (74-105) mg/dL POC Glucose 195 H (83-110) mg/dl Calcium (8.4-10.2) mg/dl Total Bilirubin (0.2-1.0) mg/dL AST (10-42) IU/L ALT (10-60) IU/L Alkaline Phosphatase (42-121) IU/L C-Reactive Protein 6.4 H (0.0-1.3) mg/dL B-Natriuretic Peptide (0-100) pg/ml Total Protein (6.7-8.2) g/dl Albumin (3.2-5.5) g/dl Globulin Albumin/Globulin Ratio Blood Type Gel Antibody Screen Crossmatch 11/21/16 11/21/16 11/21/16 Range/Units 05:42 05:42 07:58 WBC (5.0-10.0) 10^3/uL RBC (4.6-6.2) 10^6/uL Hgb (14.0-18.0) g/dL Hct (40.0-54.0) % MCV (80-100) fL MCH (27.0-34.0) pg MCHC (33.0-35.0) g/dL Plt Count (150-450) 10^3/uL Neut % (Auto) (42.2-75.2) % Lymph % (Auto) (20.5-50.1) % [place] % (Auto) (2-8) % Eos % (Auto) (1.0-3.0) % Baso % (Auto) (0.0-1.0) % Sodium 141 (135-145) mmol/L Potassium 4.1 (3.6-5.0) mmol/L Chloride 107 (101-111) mmol/L Carbon Dioxide 29.0 (21.0-31.0) mmol/L Anion Gap 9.1 BUN 28 H (7-18) mg/dL Creatinine 1.8 H (0.6-1.3) mg/dL Est Cr Clr Drug Dosing 33.78 mL/min Estimated GFR (MDRD) 37 BUN/Creatinine Ratio 15.55 Glucose 92 (74-105) mg/dL POC Glucose 98 (83-110) mg/dl Calcium 8.1 L (8.4-10.2) mg/dl Total Bilirubin 1.5 H (0.2-1.0) mg/dL AST 25 (10-42) IU/L ALT 45 (10-60) IU/L Alkaline Phosphatase 58 (42-121) IU/L C-Reactive Protein (0.0-1.3) mg/dL B-Natriuretic Peptide 382 H (0-100) pg/ml Total Protein 5.9 L (6.7-8.2) g/dl Albumin 2.9 L (3.2-5.5) g/dl Globulin 3.0 Albumin/Globulin Ratio 0.97 Blood Type Gel Antibody Screen Crossmatch Med Orders - Current: Current Medications Albuterol/Ipratropium (Duoneb 3.0-0.5 Mg/3 Ml) 3 ml NEB Q6HRRT [facility] Last Admin: 11/21/16 07:08 Dose: 3 ml Amlodipine Besylate (Norvasc) 10 mg PO DAILY [facility] Last Admin: 11/21/16 09:41 Dose: 10 mg Atorvastatin Calcium (Lipitor) 20 mg PO BEDTIME [facility] Last Admin: 11/20/16 20:29 Dose: 20 mg Atropine Sulfate (Isopto Atropine 1% [facility] Soln) 0 ml SL Q2H PRN PRN Reason: use orally for oral secretion Benazepril HCl (Lotensin) 40 mg PO DAILY [facility] Last Admin: 11/21/16 09:39 Dose: 40 mg Clonidine HCl (Catapres) 0.1 mg PO BID [facility] Last Admin: 11/21/16 09:40 Dose: 0.1 mg Furosemide (Lasix) 20 mg IVPUSH Q8H [facility] Stop: 11/22/16 18:46 Glipizide (Glucotrol) 10 mg PO BIDAC [facility] Last Admin: 11/21/16 05:54 Dose: 10 mg Guaifenesin (Mucinex) 600 mg PO TID PRN PRN Reason: Cough Azithromycin 500 mg/ Sodium (Chloride) 250 mls @ 250 mls/hr IV Q24H [facility] Last Admin: 11/21/16 03:53 Dose: 250 mls/hr Ceftriaxone Sodium 1 gm/ (Sodium Chloride) 50 mls @ 100 mls/hr IV Q24H [facility] Last Admin: 11/21/16 03:06 Dose: 100 mls/hr Albumin Human (Flexbumin 25%) 12.5 gm in 50 mls @ 100 mls/hr IV Q8H [facility] Stop: 11/23/16 02:01 Last Admin: 11/21/16 09:53 Dose: 100 mls/hr Insulin Aspart (Novolog) 0 unit SUBCUT WITHMEALSANDBED MARILUZ PRN Reason: Protocol Last Admin: 11/21/16 09:42 Dose: Not Given Lorazepam (Ativan) 1 mg PO Q4H PRN PRN Reason: anxiety, air hunger Magnesium Hydroxide (Milk Of Magnesia) 30 ml PO Q6H PRN PRN Reason: Constipation Last Admin: 11/18/16 11:50 Dose: 30 ml Metoprolol Tartrate (Lopressor) 75 mg PO Q12H [facility] Last Admin: 11/21/16 09:40 Dose: 75 mg Morphine Sulfate (Morphine) 2 mg IVPUSH Q2H PRN PRN Reason: Pain (severe 7-10) Ondansetron HCl (Zofran) 4 mg IVPUSH Q4H PRN PRN Reason: Nausea/Vomiting Oxycodone HCl (Oxycodone) 5 mg PO Q4H PRN PRN Reason: Pain (moderate 4-6) Pantoprazole Sodium (Protonix Iv) 40 mg IVPUSH Q24H [facility] Last Admin: 11/21/16 03:02 Dose: 40 mg Polyethylene Glycol (Miralax) 17 gm PO DAILY PRN PRN Reason: Constipation Polysaccharide Iron Complex (Ferrex 150) 150 mg PO BID [facility] Last Admin: 11/21/16 09:40 Dose: 150 mg Potassium Chloride (Klor-Con 10) 20 meq PO WITHBREAKFAST [facility] Last Admin: 11/21/16 09:39 Dose: 20 meq Prednisone (Prednisone) 40 mg PO WITHBREAKFAST [facility] Stop: 11/25/16 08:01 Promethazine HCl (Phenergan) 12.5 mg IM Q6H PRN PRN Reason: Nausea/Vomiting Sodium Chloride (Saline Flush) 10 ml FLUSH ASDIRECTED PRN PRN Reason: Keep Vein Open Last Admin: 11/21/16 03:40 Dose: 10 ml Spironolactone (Aldactone) 25 mg PO DAILY [facility] Last Admin: 11/21/16 09:40 Dose: 25 mg Zolpidem Tartrate (Ambien) 5 mg PO BEDTIME PRN PRN Reason: Sleep Discontinued Medications Barium Sulfate (Readi-Cat 2) 450 ml PO ONETIME ONE Stop: 11/20/16 11:31 Last Admin: 11/20/16 11:52 Dose: 450 ml Barium Sulfate (Readi-Cat 2) 450 ml PO ONETIME ONE Stop: 11/20/16 12:31 Last Admin: 11/20/16 12:00 Dose: 450 ml Docusate Sodium/Benzocaine (Enemeez Plus Mini Enema) 1 each RECTAL ONETIME ONE Stop: 11/18/16 11:14 Last Admin: 11/18/16 11:50 Dose: 1 each Furosemide (Lasix) 40 mg IVPUSH NOW ONE Stop: 11/18/16 01:18 Last Admin: 11/18/16 01:48 Dose: 40 mg Furosemide (Lasix) 20 mg IVPUSH BID [facility] Stop: 11/18/16 21:01 Last Admin: 11/18/16 10:53 Dose: 20 mg Furosemide (Lasix) 20 mg IVPUSH Q8H [facility] Stop: 11/19/16 03:01 Last Admin: 11/19/16 03:42 Dose: 20 mg Furosemide (Lasix) 20 mg PO DAILY [facility] Last Admin: 11/21/16 09:41 Dose: 20 mg Furosemide (Lasix) 20 mg PO ONETIME ONE Stop: 11/20/16 15:31 Last Admin: 11/20/16 15:52 Dose: 20 mg Furosemide (Lasix) 40 mg IVPUSH NOW ONE Stop: 11/21/16 09:24 Last Admin: 11/21/16 09:53 Dose: 40 mg Furosemide (Lasix) 20 mg IVPUSH QID [facility] Stop: 11/22/16 17:01 Potassium Chloride 10 meq/ (Premix) 100 mls @ 100 mls/hr IV ONETIME ONE Stop: 11/18/16 02:17 Last Admin: 11/18/16 01:52 Dose: 100 mls/hr Ceftriaxone Sodium 1 gm/ (Sodium Chloride) 50 mls @ 100 mls/hr IV Q24H [facility] Last Admin: 11/20/16 03:10 Dose: 100 mls/hr Albumin Human (Flexbumin 25%) 12.5 gm in 50 mls @ 100 mls/hr IV ONETIME ONE Stop: 11/18/16 03:42 Last Admin: 11/18/16 04:07 Dose: 100 mls/hr Albumin Human (Flexbumin 25%) 12.5 gm in 50 mls @ 100 mls/hr IV Q8H [facility] Stop: 11/19/16 03:29 Last Admin: 11/19/16 03:09 Dose: 100 mls/hr Metoprolol Tartrate (Lopressor) 75 mg PO Q12H [facility] Last Admin: 11/18/16 05:34 Dose: Not Given Non-Formulary Medication (Metformin [Glucophage]) 1,000 mg PO BIDMEALS [facility] Last Admin: 11/18/16 11:27 Dose: Not Given Potassium Chloride (Klor-Con 10) 20 meq PO ONETIME ONE Stop: 11/18/16 01:19 Last Admin: 11/18/16 01:45 Dose: 20 meq Potassium Chloride (Klor-Con 10) 40 meq PO BEDTIME [facility] Stop: 11/18/16 21:01 Last Admin: 11/18/16 21:09 Dose: 40 meq Potassium Chloride (Klor-Con 10) 60 meq PO ONETIME ONE Stop: 11/19/16 10:01 Last Admin: 11/19/16 10:57 Dose: 60 meq Potassium Chloride (Klor-Con 10) 40 meq PO ONETIME ONE Stop: 11/19/16 18:01 Last Admin: 11/19/16 17:44 Dose: 40 meq - Exam General: alert, oriented, cooperative, no acute distress, other (he looks better to). No: moderate distress, severe distress, sedated, lethargic, obtunded HEENT: Pupils equal, Pupils reactive, EOMI, Mucous membr. moist/pink Neck: supple, trachea midline, no JVD Lungs: Normal respiratory effort, Decreased breath sounds (in basis), Rhonchi, Wheezing. No: Rub, Stridor Cardiovascular: Irregular Rhythm. No: Murmurs, Gallops, Rubs Abdomen: bowel sounds present, soft, no tenderness, distension (mildly improved) . No: rigidity, rebound, guarding, tenderness (Male) Exam: Deferred Back Exam: Normal Inspection, Full Range of Motion Extremities: normal pulses, no tenderness/swelling, no clubbing, no cyanosis, no calf tenderness, edema (trace lower extremities edema) Skin: warm, dry, intact Wound/Incisions: healing well Neurological: no new focal deficit Psy/Mental Status: alert, normal affect, normal mood - Problem List & Annotations (1) Essential hypertension SNOMED Code(s): 28756664 Code(s): I10 - ESSENTIAL (PRIMARY) HYPERTENSION Status: Chronic Current Visit: Yes (2) Acute on chronic congestive heart failure SNOMED Code(s): 02545447 Code(s): I50.9 - HEART FAILURE, UNSPECIFIED Status: Acute Priority: High Current Visit: Yes (3) Shortness of breath SNOMED Code(s): 788695318 Code(s): R06.02 - SHORTNESS OF BREATH Status: Acute Current Visit: Yes (4) Hypoalbuminemia SNOMED Code(s): 832261330 Code(s): E88.09 - OTH DISORDERS OF PLASMA-PROTEIN METABOLISM, NEC Status: Acute Current Visit: Yes (5) Hypokalemia SNOMED Code(s): 18410911 Code(s): E87.6 - HYPOKALEMIA Status: Acute Current Visit: Yes (6) Elevated bilirubin SNOMED Code(s): 873573022 Code(s): R17 - UNSPECIFIED JAUNDICE Status: Acute Current Visit: Yes (7) Anemia SNOMED Code(s): 610893225 Code(s): D64.9 - ANEMIA, UNSPECIFIED Status: Acute Current Visit: Yes Qualifiers: Anemia type: other cause Other causes of anemia: acute posthemorrhagic Qualified Code(s): D62 - Acute posthemorrhagic anemia (8) CKD (chronic kidney disease) SNOMED Code(s): 464289332 Code(s): N18.9 - CHRONIC KIDNEY DISEASE, UNSPECIFIED Status: Acute Current Visit: Yes Qualifiers: Chronic kidney disease stage: stage 3 (moderate) Qualified Code(s): N18.3 - Chronic kidney disease, stage 3 (moderate) (9) Congestive heart failure SNOMED Code(s): 96213567 Code(s): I50.9 - HEART FAILURE, UNSPECIFIED Status: Acute Current Visit: Yes Qualifiers: Congestive heart failure type: unspecified congestive heart failure type Congestive heart failure chronicity: acute Qualified Code(s): I50.9 - Heart failure, unspecified (10) Diabetes SNOMED Code(s): 34010577 Code(s): E11.9 - TYPE 2 DIABETES MELLITUS WITHOUT COMPLICATIONS Status: Chronic Current Visit: Yes Qualifiers: Diabetes mellitus type: type 2 (11) History of atrial fibrillation SNOMED Code(s): 807146387 Code(s): Z86.79 - PERSONAL HISTORY OF OTHER DISEASES OF THE CIRCULATORY SYSTEM Status: Chronic Current Visit: Yes - Problem List Review Problem List Initiated/Reviewed/Updated: Yes - My Orders Last 24 Hours: My Active Orders 11/20/16 09:44 OT Evaluation and Treatment [CONS] Routine PT Evaluation and Treatment [CONS] Routine 11/20/16 10:29 guaiFENesin [Mucinex] 600 mg PO TID PRN 11/20/16 10:31 Flutter Valve Therapy [RT Chest Physiotherapy] [RC] ASDIRECTED Incentive Spirometry [RT Incentive Spirometry] [RC] ASDIRECTED 11/20/16 10:34 Communication Order [RC] ROUTINE 11/20/16 10:44 Antiembolic Devices [RC] PER UNIT ROUTINE SCD [Sequential Compression Device] [OM.PC] Routine 11/20/16 11:15 Iron Polysaccharides Complex [Ferrex 150] 150 mg PO BID 11/21/16 02:00 Albumin 25% [Flexbumin 25%] 12.5 gm in 50 ml IV Q8H 11/21/16 04:00 cefTRIAXone [Rocephin] 1 gm Sodium Chloride 0.9% [Normal Saline] 50 ml IV Q24H 11/21/16 10:35 Telemetry Monitoring [Cardiac Monitoring] [RC] . DIRECTED 11/21/16 10:36 Communication Order [RC] ROUTINE 11/21/16 10:40 predniSONE 40 mg PO WITHBREAKFAST 11/21/16 10:45 Furosemide [Lasix] 20 mg IVPUSH Q8H 11/22/16 05:11 B-TYPE NATRIURETIC PEPTIDE,BNP [CHEM] AM BASIC METABOLIC PANEL,BMP [CHEM] AM C-REACTIVE PROTEIN [CHEM] AM CBC WITH AUTO DIFF [HEME] AM - Plan Plan:: Possible Community Acquired Pneumonia Patient without fever and weakness chest x-ray on admission did not show acute findings on he was started on empiric antibiotics of azithromycin IV and Rocephin IV Incentive spirometer and flutter to be used -repeated chest x-ray on 11/20/16 shows lower lobe atelectasis and infiltrates in right lung base, that he was not seen on admission x-ray CT of abdomen and pelvis and showed lower lobe atelectasis and infiltrates in the right lung base. -he still requiring 5 l/m of nasal oxygen -I ordered sputum culture -Follow up with cultures -I am concerned about possible healthcare associated pneumonia as patient is having new infiltrate on the repeated chest x-ray and patient had recent hospitalization as well. therefore -I will change antibiotic to vancomycin and levaquin Possible acute congestive heart failure BNP slightly improved after Lasix and albumin infusion echocardiogram showed ejection fraction was than 60% last of month continue with Lopressor and spironolactone he received one day of Lasix and albumin IV every 8 hours on admission, and he was on Lasix orally 20 mg daily -today he will be started on Lasix 20 mg IV every 8 hours and albumin infusion every 8 hours for 2 days Bilateral Pleural effusion right greater than left -today he will be started on Lasix 20 mg IV every 8 hours and albumin infusion every 8 hours for 2 days -at this time he does not want Surgical/procedure intervention Wheezing with history of secondhand smoking for 25 years patient and declined history of COPD smoked one pack per day for 25 years outside his house while living with the patient Continue doing them every 6 hours continue oxygen At the prednisone 40 mg daily for 5 days orally Intermittent Atrial fibrillation -heart rate is controlled he initially declined telemetry Continuous Lopressor, benzapril -we'll try telemetry throughout the day and if rate is controlled we'll discontinue it. Patient agreed with that Acute on Chronic Kidney Disease possibly pre renal due hypoalbuminia is attributing Avoid Nephrotoxic agents Anemia Multifactorial Maybe attributing to his shortness breath Blood transfusion, One unit of RBC Hemoccult is positive -his hemoglobin is stable -Recheck hemoglobin tomorrow -Dr. Montano because the patient yesterday and he recommended out patient colonoscopy Abdomen wall bruise right/inferior/lateral to the umbilicus , small. most likely due to retroperitoneal hematoma Mildly tender Looks old, possibly at the site of subcutaneous injection for the past Retroperitoneal hematoma repeated CT of abdomen and pelvis on 11/20/16 shows no change from CT of abdomen and pelvis on 11/03/69 apply Cold packs 4 times a day Generalized weakness multifactorial consult physical therapy and occupational therapy Abdominal distention with possible stool impaction on abdomen x-ray he seemed to have distended colon and stool in the rectum. Patient has hyperactive bowel sounds he had multiple bowel movements after milk of magnesia and enema -Dr. Dusty things distention is due to the intraperitoneal hematoma Cholelithiasis, asymptomatic was seen on abdomen CT scan from last month and abdomen x-ray from today patient denies abdomen pain He does not want any intervention Lung nodule, 3 mm left lower lobe seen on chest CT scan from last month I readdress that with the patient and again and he agreed to followup with primary care provider or post hole digger after discharge Pseudo-hypocalcemia, do to low albumin Hypoalbuminemia Ensure with meals Diabetes Mellitus type II Hold metformin Continue on glipizide Sliding scale insulin Diabetic diet Blood glucose monitoring Essential Hypertension continue metoprolol, amlodipine, benzapril Hyperlipidemia Continue statin History of prostate cancer status post cryoablation prostate on 04/15/2013 with rise in PSA and negative biopsy. Barriga catheter for comfort Possible metastatic disease to ribs and elbow, noted in his chart from [facility] I readdress that with the patient and again and he agreed to followup with primary care provider and post hole digger or oncologist after discharge rule out or in cancer Gluteal callus, most likely from decubitus pressure. no open wound appreciated Pressure dressing Diet patient requested general diet avoid pharmaceuticalDVT prophylaxis due to the history of recent retroperitoneal bleeding Avoid aspirin due to retroperitoneal bleeding and GI bleed. I discussed that evaristo Montano who concurred SCDs and andrez chirinos and ambulation for DVT prophylaxis Code Status: DNI/DNR }
[2016-11-21] MEDS: predniSONE 20 MG Tab PO SCH (11:44)
[2016-11-21] MEDS: Levofloxacin/Dextrose 5%-Water 750 MG in Premix Bag 1 BAG IV SCH ×2 (11:46→13:20)
--- NOTE | 2016-11-21 14:07 | EKG ---
{null, 11/18/2016 - EVELINA MORAN I reviewed the EKG, agree with the machine's reading. [facility] /[id number] }
[2016-11-21] MEDS: Furosemide 20 MG/2 ML VIAL IVPUSH SCH (17:42)
[2016-11-21] MEDS ORDERED: Potassium Chloride 10 MEQ Tab.ER PO ONE (18:00)
[2016-11-21] MEDS: atorvaSTATin 20 MG Tab PO SCH (20:48)
[2016-11-22] MEDS: Albuterol/Ipratropium 3.0-0.5 MG/3 ML Neb Soln NEB SCH ×4 (00:59→16:59)
[2016-11-22] MEDS: Furosemide 20 MG/2 ML VIAL IVPUSH SCH ×3 (02:27→19:01)
[2016-11-22] MEDS: Albumin 25% 12.5 GM/50 ML BAG IV SCH ×3 (02:31→19:01)
[2016-11-22] MEDS: Pantoprazole 40 MG Vial IVPUSH SCH (03:11)
[2016-11-22] MEDS: glipiZIDE 5 MG Tab PO SCH ×2 (06:05→17:47)
[2016-11-22] MEDS: Insulin Aspart 100 Units/ML 3 ML Pen SUBCUT SCH ×4 (08:15→21:30)
[2016-11-22] MEDS: predniSONE 20 MG Tab PO SCH (08:16)
[2016-11-22] MEDS: Metoprolol Tartrate 25 MG Tab PO SCH ×2 (08:17→21:29)
[2016-11-22] MEDS: cloNIDine 0.1 MG Tab PO SCH ×2 (08:17→21:28)
[2016-11-22] MEDS: Potassium Chloride 10 MEQ Tab.ER PO SCH (08:17)
[2016-11-22] MEDS: Iron Polysaccharides Complex 150 MG Cap PO SCH ×2 (08:17→21:29)
[2016-11-22] MEDS: Spironolactone 25 MG Tab PO SCH (08:17)
[2016-11-22] MEDS: Benazepril 10 MG Tab PO SCH (08:18)
[2016-11-22] MEDS: amLODIPine 5 MG Tab PO SCH (08:18)
--- NOTE | 2016-11-22 08:23 | PN ---
{null, DATE: 11/22/2016 Deals much with arrest of expectoration. No anginal kind of chest pain or palpitations. No postural dizziness. Denies any significant abdominal pain. Had regular bowel movement today. No bright red rectal bleeding. No leg cramps. OBJECTIVE: Vital Signs: Pulse 78 per minute, BP 134/55, temperature 97, and O2 saturation 95. General: Alert and oriented, not short of breath at rest. Lungs: No adventitious sounds heard. S1 and S2, regular. Abdomen: Obese, soft, some mass resistance felt in the right flank along with some tenderness. Bowel sounds are active. No pitting edema of the legs noted. INVESTIGATIONS: Hemoglobin 7.6, hematocrit 25, and platelet 251,000. WBC 4900, 81 neutrophils. Chemistry panel shows abnormal, BUN 35, creatinine 2, glucose 205, CRP 9.2, and BNP 534. RECOMMENDATIONS: Periodic hemoglobin and hematocrit examinations, packed cell transfusions as needed. Later when stabilized, endoscopic evaluation to be considered with reference to Hemoccult positive stools with regard to anemia, earlier if required. IMPRESSION: 1. Intraabdominal bleed. 2. Anemia, multifactorial. 3. Paroxysmal atrial fibrillation. 4. Type 2 diabetes mellitus. 5. Hypertension. 6. Bacterial pneumonitis. [facility] /[id number] }
--- NOTE | 2016-11-22 09:51 | PCM.PN ---
{null, - General Info Date of Service: 11/22/16 Admission Dx/Problem (Free Text): Admission Diagnosis/Problem Admission Diagnosis/Problem Atrial fibrillation Subjective Update: patient stated that he is feeling better today. he states that his energy, cough and shortness of breath is improving. he is not having shortness breath while sitting in bed. He is requiring less supplemental oxygen today.he is passing stool and gas. He denies fever, chills, nausea, vomiting, abdominal pain , chest pain, unilateral weakness, or any other symptoms. - Patient Data Vitals - most recent: Last Vital Signs Temp 36.1 C 11/22/16 07:00 Pulse 70 11/22/16 08:17 Resp 20 11/22/16 07:00 BP 143/59 H 11/22/16 08:18 Pulse Ox 95 11/22/16 07:00 Weight - most recent: 90.265 kg I&O - last 24 hours: Intake & Output 11/21/16 11/22/16 11/22/16 22:59 06:59 14:59 Intake Total 1103 450 380 Output Total 950 700 Balance 153 -250 380 Lab Results last 24 hrs: Laboratory Results - last 24 hr 11/21/16 11/21/16 11/21/16 Range/Units 05:42 11:02 16:54 WBC (5.0-10.0) 10^3/uL RBC (4.6-6.2) 10^6/uL Hgb (14.0-18.0) g/dL Hct (40.0-54.0) % MCV (80-100) fL MCH (27.0-34.0) pg MCHC (33.0-35.0) g/dL Plt Count (150-450) 10^3/uL Neut % (Auto) (42.2-75.2) % Lymph % (Auto) (20.5-50.1) % [place] % (Auto) (2-8) % Eos % (Auto) (1.0-3.0) % Baso % (Auto) (0.0-1.0) % Sodium (135-145) mmol/L Potassium (3.6-5.0) mmol/L Chloride (101-111) mmol/L Carbon Dioxide (21.0-31.0) mmol/L Anion Gap BUN (7-18) mg/dL Creatinine (0.6-1.3) mg/dL Est Cr Clr Drug Dosing mL/min Estimated GFR (MDRD) Glucose (74-105) mg/dL POC Glucose 169 H 193 H (83-110) mg/dl Calcium (8.4-10.2) mg/dl C-Reactive Protein (0.0-1.3) mg/dL B-Natriuretic Peptide 382 H (0-100) pg/ml 11/21/16 11/22/16 11/22/16 Range/Units 21:02 05:52 05:52 WBC 4.9 L (5.0-10.0) 10^3/uL RBC 2.64 L (4.6-6.2) 10^6/uL Hgb 7.6 L (14.0-18.0) g/dL Hct 25.0 L (40.0-54.0) % MCV 94.7 (80-100) fL MCH 28.8 (27.0-34.0) pg MCHC 30.4 L (33.0-35.0) g/dL Plt Count 251 (150-450) 10^3/uL Neut % (Auto) 80.6 H (42.2-75.2) % Lymph % (Auto) 10.1 L (20.5-50.1) % [place] % (Auto) 9.1 H (2-8) % Eos % (Auto) 0.0 L (1.0-3.0) % Baso % (Auto) 0.2 (0.0-1.0) % Sodium 139 (135-145) mmol/L Potassium 4.7 (3.6-5.0) mmol/L Chloride 106 (101-111) mmol/L Carbon Dioxide 27.0 (21.0-31.0) mmol/L Anion Gap 10.7 BUN 35 H (7-18) mg/dL Creatinine 2.0 H (0.6-1.3) mg/dL Est Cr Clr Drug Dosing 30.40 mL/min Estimated GFR (MDRD) 33 Glucose 205 H (74-105) mg/dL POC Glucose 361 H (83-110) mg/dl Calcium 8.5 (8.4-10.2) mg/dl C-Reactive Protein (0.0-1.3) mg/dL B-Natriuretic Peptide 534 H (0-100) pg/ml 11/22/16 11/22/16 Range/Units 05:52 07:32 WBC (5.0-10.0) 10^3/uL RBC (4.6-6.2) 10^6/uL Hgb (14.0-18.0) g/dL Hct (40.0-54.0) % MCV (80-100) fL MCH (27.0-34.0) pg MCHC (33.0-35.0) g/dL Plt Count (150-450) 10^3/uL Neut % (Auto) (42.2-75.2) % Lymph % (Auto) (20.5-50.1) % [place] % (Auto) (2-8) % Eos % (Auto) (1.0-3.0) % Baso % (Auto) (0.0-1.0) % Sodium (135-145) mmol/L Potassium (3.6-5.0) mmol/L Chloride (101-111) mmol/L Carbon Dioxide (21.0-31.0) mmol/L Anion Gap BUN (7-18) mg/dL Creatinine (0.6-1.3) mg/dL Est Cr Clr Drug Dosing mL/min Estimated GFR (MDRD) Glucose (74-105) mg/dL POC Glucose 183 H (83-110) mg/dl Calcium (8.4-10.2) mg/dl C-Reactive Protein 9.2 H (0.0-1.3) mg/dL B-Natriuretic Peptide (0-100) pg/ml David Results last 24 hrs: Microbiology 11/21/16 12:50 Gram Stain - Final Sputum - Expectorated Sputum Culture - Preliminary Normal Maisha Med Orders - Current: Current Medications Albuterol/Ipratropium (Duoneb 3.0-0.5 Mg/3 Ml) 3 ml NEB Q6HRRT [facility] Last Admin: 11/22/16 07:11 Dose: 3 ml Amlodipine Besylate (Norvasc) 10 mg PO DAILY [facility] Last Admin: 11/22/16 08:18 Dose: 10 mg Atorvastatin Calcium (Lipitor) 20 mg PO BEDTIME [facility] Last Admin: 11/21/16 20:48 Dose: 20 mg Atropine Sulfate (Isopto Atropine 1% Ophth Soln) 0 ml SL Q2H PRN PRN Reason: use orally for oral secretion Benazepril HCl (Lotensin) 40 mg PO DAILY [facility] Last Admin: 11/22/16 08:18 Dose: 40 mg Clonidine HCl (Catapres) 0.1 mg PO BID [facility] Last Admin: 11/22/16 08:17 Dose: 0.1 mg Furosemide (Lasix) 20 mg IVPUSH Q8H [facility] Stop: 11/23/16 02:01 Last Admin: 11/22/16 02:27 Dose: 20 mg Glipizide (Glucotrol) 10 mg PO BIDAC [facility] Last Admin: 11/22/16 06:05 Dose: 10 mg Guaifenesin (Mucinex) 600 mg PO TID PRN PRN Reason: Cough Albumin Human (Flexbumin 25%) 12.5 gm in 50 mls @ 100 mls/hr IV Q8H [facility] Stop: 11/23/16 02:01 Last Admin: 11/22/16 02:31 Dose: 100 mls/hr Levofloxacin/Dextrose 750 mg/ (Premix) 150 mls @ 100 mls/hr IV Q48H [facility] Last Infusion: 11/21/16 16:51 Dose: Infused Vancomycin HCl 1.25 gm/ Sodium (Chloride) 250 mls @ 166.667 mls/hr IV Q24H [facility] Last Admin: 11/21/16 14:54 Dose: 166.667 mls/hr Insulin Aspart (Novolog) 0 unit SUBCUT WITHMEALSANDBED [facility] PRN Reason: Protocol Last Admin: 11/22/16 08:15 Dose: 1 units Lorazepam (Ativan) 1 mg PO Q4H PRN PRN Reason: anxiety, air hunger Magnesium Hydroxide (Milk Of Magnesia) 30 ml PO Q6H PRN PRN Reason: Constipation Last Admin: 11/18/16 11:50 Dose: 30 ml Metoprolol Tartrate (Lopressor) 75 mg PO Q12H [facility] Last Admin: 11/22/16 08:17 Dose: 75 mg Morphine Sulfate (Morphine) 2 mg IVPUSH Q2H PRN PRN Reason: Pain (severe 7-10) Ondansetron HCl (Zofran) 4 mg IVPUSH Q4H PRN PRN Reason: Nausea/Vomiting Oxycodone HCl (Oxycodone) 5 mg PO Q4H PRN PRN Reason: Pain (moderate 4-6) Pantoprazole Sodium (Protonix Iv) 40 mg IVPUSH Q24H [facility] Last Admin: 11/22/16 03:11 Dose: 40 mg Polyethylene Glycol (Miralax) 17 gm PO DAILY PRN PRN Reason: Constipation Polysaccharide Iron Complex (Ferrex 150) 150 mg PO BID [facility] Last Admin: 11/22/16 08:17 Dose: 150 mg Potassium Chloride (Klor-Con 10) 20 meq PO WITHBREAKFAST [facility] Last Admin: 11/22/16 08:17 Dose: 20 meq Prednisone (Prednisone) 40 mg PO WITHBREAKFAST [facility] Stop: 11/25/16 08:01 Last Admin: 11/22/16 08:16 Dose: 40 mg Promethazine HCl (Phenergan) 12.5 mg IM Q6H PRN PRN Reason: Nausea/Vomiting Sodium Chloride (Saline Flush) 10 ml FLUSH ASDIRECTED PRN PRN Reason: Keep Vein Open Last Admin: 11/21/16 03:40 Dose: 10 ml Spironolactone (Aldactone) 50 mg PO DAILY [facility] Last Admin: 11/22/16 08:17 Dose: 50 mg Vancomycin HCl (Pharmacy To Dose - Vancomycin) 1 dose .XX ASDIRECTED [facility] Zolpidem Tartrate (Ambien) 5 mg PO BEDTIME PRN PRN Reason: Sleep Discontinued Medications Barium Sulfate (Readi-Cat 2) 450 ml PO ONETIME ONE Stop: 11/20/16 11:31 Last Admin: 11/20/16 11:52 Dose: 450 ml Barium Sulfate (Readi-Cat 2) 450 ml PO ONETIME ONE Stop: 11/20/16 12:31 Last Admin: 11/20/16 12:00 Dose: 450 ml Docusate Sodium/Benzocaine (Enemeez Plus Mini Enema) 1 each RECTAL ONETIME ONE Stop: 11/18/16 11:14 Last Admin: 11/18/16 11:50 Dose: 1 each Furosemide (Lasix) 40 mg IVPUSH NOW ONE Stop: 11/18/16 01:18 Last Admin: 11/18/16 01:48 Dose: 40 mg Furosemide (Lasix) 20 mg IVPUSH BID [facility] Stop: 11/18/16 21:01 Last Admin: 11/18/16 10:53 Dose: 20 mg Furosemide (Lasix) 20 mg IVPUSH Q8H [facility] Stop: 11/19/16 03:01 Last Admin: 11/19/16 03:42 Dose: 20 mg Furosemide (Lasix) 20 mg PO DAILY [facility] Last Admin: 11/21/16 09:41 Dose: 20 mg Furosemide (Lasix) 20 mg PO ONETIME ONE Stop: 11/20/16 15:31 Last Admin: 11/20/16 15:52 Dose: 20 mg Furosemide (Lasix) 40 mg IVPUSH NOW ONE Stop: 11/21/16 09:24 Last Admin: 11/21/16 09:53 Dose: 40 mg Furosemide (Lasix) 20 mg IVPUSH QID [facility] Stop: 11/22/16 17:01 Potassium Chloride 10 meq/ (Premix) 100 mls @ 100 mls/hr IV ONETIME ONE Stop: 11/18/16 02:17 Last Admin: 11/18/16 01:52 Dose: 100 mls/hr Azithromycin 500 mg/ Sodium (Chloride) 250 mls @ 250 mls/hr IV Q24H [facility] Last Admin: 11/21/16 03:53 Dose: 250 mls/hr Ceftriaxone Sodium 1 gm/ (Sodium Chloride) 50 mls @ 100 mls/hr IV Q24H [facility] Last Admin: 11/20/16 03:10 Dose: 100 mls/hr Albumin Human (Flexbumin 25%) 12.5 gm in 50 mls @ 100 mls/hr IV ONETIME ONE Stop: 11/18/16 03:42 Last Admin: 11/18/16 04:07 Dose: 100 mls/hr Albumin Human (Flexbumin 25%) 12.5 gm in 50 mls @ 100 mls/hr IV Q8H [facility] Stop: 11/19/16 03:29 Last Admin: 11/19/16 03:09 Dose: 100 mls/hr Ceftriaxone Sodium 1 gm/ (Sodium Chloride) 50 mls @ 100 mls/hr IV Q24H [facility] Last Admin: 11/21/16 03:06 Dose: 100 mls/hr Metoprolol Tartrate (Lopressor) 75 mg PO Q12H [facility] Last Admin: 11/18/16 05:34 Dose: Not Given Non-Formulary Medication (Metformin [Glucophage]) 1,000 mg PO BIDMEALS [facility] Last Admin: 11/18/16 11:27 Dose: Not Given Potassium Chloride (Klor-Con 10) 20 meq PO ONETIME ONE Stop: 11/18/16 01:19 Last Admin: 11/18/16 01:45 Dose: 20 meq Potassium Chloride (Klor-Con 10) 40 meq PO BEDTIME [facility] Stop: 11/18/16 21:01 Last Admin: 11/18/16 21:09 Dose: 40 meq Potassium Chloride (Klor-Con 10) 60 meq PO ONETIME ONE Stop: 11/19/16 10:01 Last Admin: 11/19/16 10:57 Dose: 60 meq Potassium Chloride (Klor-Con 10) 40 meq PO ONETIME ONE Stop: 11/19/16 18:01 Last Admin: 11/19/16 17:44 Dose: 40 meq Potassium Chloride (Klor-Con 10) 40 meq PO ONETIME ONE Stop: 11/21/16 18:01 Last Admin: 11/21/16 17:19 Dose: 40 meq Spironolactone (Aldactone) 25 mg PO DAILY [facility] Last Admin: 11/21/16 09:40 Dose: 25 mg - Exam General: alert, oriented, cooperative, no acute distress, other (he looks better ). No: moderate distress, severe distress, sedated, lethargic, obtunded HEENT: Pupils equal, Pupils reactive, EOMI, Mucous membr. moist/pink Neck: supple, trachea midline Lungs: Normal respiratory effort, Decreased breath sounds (in bases), Crackles ( in bases, mostly left). No: Rales, Rhonchi, Rub, Stridor, Wheezing Cardiovascular: Regular Rate, Regular Rhythm, Irregular Rhythm Abdomen: bowel sounds present, soft, no tenderness, distension (mildly improved) . No: rebound, guarding, tenderness (Male) Exam: Deferred Back Exam: Normal Inspection, Full Range of Motion Extremities: normal pulses, no tenderness/swelling, no clubbing, no cyanosis, no calf tenderness, edema (trace edema, improved from yesterday in the lower extremities) Skin: warm, dry, intact Neurological: no new focal deficit Psy/Mental Status: alert, normal affect, normal mood - Problem List & Annotations (1) Essential hypertension SNOMED Code(s): 60382838 Code(s): I10 - ESSENTIAL (PRIMARY) HYPERTENSION Status: Chronic Current Visit: Yes (2) Acute on chronic congestive heart failure SNOMED Code(s): 62732740 Code(s): I50.9 - HEART FAILURE, UNSPECIFIED Status: Acute Priority: High Current Visit: Yes (3) Shortness of breath SNOMED Code(s): 244391445 Code(s): R06.02 - SHORTNESS OF BREATH Status: Acute Current Visit: Yes (4) Hypoalbuminemia SNOMED Code(s): 743803337 Code(s): E88.09 - OTH DISORDERS OF PLASMA-PROTEIN METABOLISM, NEC Status: Acute Current Visit: Yes (5) Hypokalemia SNOMED Code(s): 36098880 Code(s): E87.6 - HYPOKALEMIA Status: Acute Current Visit: Yes (6) Elevated bilirubin SNOMED Code(s): 896259484 Code(s): R17 - UNSPECIFIED JAUNDICE Status: Acute Current Visit: Yes (7) Anemia SNOMED Code(s): 409807631 Code(s): D64.9 - ANEMIA, UNSPECIFIED Status: Acute Current Visit: Yes Qualifiers: Anemia type: other cause Other causes of anemia: acute posthemorrhagic Qualified Code(s): D62 - Acute posthemorrhagic anemia (8) CKD (chronic kidney disease) SNOMED Code(s): 645747671 Code(s): N18.9 - CHRONIC KIDNEY DISEASE, UNSPECIFIED Status: Acute Current Visit: Yes Qualifiers: Chronic kidney disease stage: stage 3 (moderate) Qualified Code(s): N18.3 - Chronic kidney disease, stage 3 (moderate) (9) Congestive heart failure SNOMED Code(s): 67783827 Code(s): I50.9 - HEART FAILURE, UNSPECIFIED Status: Acute Current Visit: Yes Qualifiers: Congestive heart failure type: unspecified congestive heart failure type Congestive heart failure chronicity: acute Qualified Code(s): I50.9 - Heart failure, unspecified (10) Diabetes SNOMED Code(s): 27268295 Code(s): E11.9 - TYPE 2 DIABETES MELLITUS WITHOUT COMPLICATIONS Status: Chronic Current Visit: Yes Qualifiers: Diabetes mellitus type: type 2 (11) History of atrial fibrillation SNOMED Code(s): 451676186 Code(s): Z86.79 - PERSONAL HISTORY OF OTHER DISEASES OF THE CIRCULATORY SYSTEM Status: Chronic Current Visit: Yes - Problem List Review Problem List Initiated/Reviewed/Updated: Yes - My Orders Last 24 Hours: My Active Orders 11/21/16 10:36 Communication Order [RC] ROUTINE 11/21/16 10:40 predniSONE 40 mg PO WITHBREAKFAST 11/21/16 11:00 Levofloxacin/Dextrose 5%-Water [Levaquin in D5W 750 MG/150 ML] 750 mg Premix Bag 1 bag IV Q48H Vancomycin Pharmacy to Dose [Pharmacy to Dose - Vancomycin] 1 dose .XX ASDIRECTED 11/21/16 12:00 Vancomycin 1.25 gm Sodium Chloride 0.9% [Normal Saline] 250 ml IV Q24H 11/21/16 12:50 CULTURE SPUTUM + SMEAR [RM] Routine 11/21/16 18:00 Furosemide [Lasix] 20 mg IVPUSH Q8H 11/22/16 09:00 Spironolactone [Aldactone] 50 mg PO DAILY 11/23/16 05:11 CXR [Chest 2V] [CR] AM CBC WITH AUTO DIFF [HEME] AM CMP [COMPREHENSIVE METABOLIC PN,CMP] [CHEM] AM CRP [C-REACTIVE PROTEIN] [CHEM] AM 11/24/16 11:30 VANCOMYCIN TROUGH [CHEM] Timed - Plan Plan:: Possible Community Acquired Pneumonia Patient without fever and weakness chest x-ray on admission did not show acute findings on he was started on empiric antibiotics of azithromycin IV and Rocephin IV Incentive spirometer and flutter to be used repeated chest x-ray on 11/20/16 shows lower lobe atelectasis and infiltrates in right lung base, that was not seen on admission x-ray CT of abdomen and pelvis and showed lower lobe atelectasis and infiltrates in the right lung base. -he was requiring 5 l/m of nasal oxygen but today requiring 3 L only -awaiting sputum culture -Follow up with blood cultures -I am concerned about possible healthcare associated pneumonia as patient is having new infiltrate on the repeated chest x-ray and patient had recent hospitalization as well. therefore -on , I changed Azithromycin and Rocephin to vancomycin and levaquin Possible acute congestive heart failure BNP slightly improved after Lasix and albumin infusionone echocardiogram showed ejection fraction was than 60% last of month continue with Lopressor and spironolactone he received one day of Lasix and albumin IV every 8 hours on admission, and he was on Lasix orally 20 mg daily -on 11/21/16 he was started on Lasix 20 mg IV every 8 hours and albumin infusion every 8 hours for 2 days Bilateral Pleural effusion right greater than left -on 11/21/16 he was started on Lasix 20 mg IV every 8 hours and albumin infusion every 8 hours for 2 days Wheezing with history of secondhand smoking for 25 years patient and declined history of COPD smoked one pack per day for 25 years outside his house while living with the patient Continue doing them every 6 hours continue oxygen At the prednisone 40 mg daily for 5 days orally Intermittent Atrial fibrillation -heart rate is controlled he initially declined telemetry Continuous Lopressor -patient had to place yesterday drawn today and. He was in atrial fibrillation with controlled heart rate in the morning but afternoon he was in sinus rhythm and normal heart rate Acute on Chronic Kidney Disease possibly pre renal due hypoalbuminia is attributing Avoid Nephrotoxic agents Anemia Multifactorial Maybe attributing to his shortness breath Blood transfusion, One unit of RBC Hemoccult is positive -his hemoglobin is fluctuation -Recheck hemoglobin tomorrow -Dr. Montano because the patient and recommended out patient colonoscopy Abdomen wall bruise right/inferior/lateral to the umbilicus , small. most likely due to retroperitoneal hematoma Mildly tender Looks old, possibly at the site of subcutaneous injection for the past Retroperitoneal hematoma repeated CT of abdomen and pelvis on 11/20/16 shows no change from CT of abdomen and pelvis on 11/03/69 apply Cold packs 4 times a day Generalized weakness multifactorial consult physical therapy and occupational therapy Abdominal distention with possible stool impaction on abdomen x-ray he seemed to have distended colon and stool in the rectum. Patient has hyperactive bowel sounds he had multiple bowel movements after milk of magnesia and enema -Dr. Montano thinks distention is due to the intraperitoneal hematoma Cholelithiasis, asymptomatic was seen on abdomen CT scan from last month and abdomen x-ray from today patient denies abdomen pain He does not want any intervention Lung nodule, 3 mm left lower lobe seen on chest CT scan from last month I readdress that with the patient and again and he agreed to followup with primary care provider or senior abap developer after discharge Pseudo-hypocalcemia, do to low albumin Hypoalbuminemia Ensure with meals Diabetes Mellitus type II Hold metformin Continue on glipizide Sliding scale insulin Diabetic diet Blood glucose monitoring Essential Hypertension continue metoprolol, amlodipine, benzapril Hyperlipidemia Continue statin History of prostate cancer status post cryoablation prostate on 04/15/2013 with rise in PSA and negative biopsy. Barriga catheter for comfort Possible metastatic disease to ribs and elbow, noted in his chart from [facility] I readdress that with the patient and again and he agreed to followup with primary care provider and senior abap developer or oncologist after discharge rule out or in cancer Gluteal callus, most likely from decubitus pressure. no open wound appreciated Pressure dressing Diet patient requested general diet avoid pharmaceutical DVT prophylaxis due to the history of recent retroperitoneal bleeding Avoid aspirin due to retroperitoneal bleeding and GI bleed. I discussed that evaristo Montano who concurred SCDs and andrez chirinos and ambulation for DVT prophylaxis Code Status: DNI/DNR }
[2016-11-22] MEDS: atorvaSTATin 20 MG Tab PO SCH (21:29)
[2016-11-23] MEDS: Albumin 25% 12.5 GM/50 ML BAG IV SCH (01:35)
[2016-11-23] MEDS: Albuterol/Ipratropium 3.0-0.5 MG/3 ML Neb Soln NEB SCH ×4 (01:36→18:12)
[2016-11-23] MEDS: Furosemide 20 MG/2 ML VIAL IVPUSH SCH (01:36)
[2016-11-23] MEDS: Pantoprazole 40 MG Vial IVPUSH SCH (03:37)
[2016-11-23] MEDS: glipiZIDE 5 MG Tab PO SCH ×2 (05:59→17:53)
[2016-11-23] MEDS: Insulin Aspart 100 Units/ML 3 ML Pen SUBCUT SCH ×4 (08:20→21:18)
[2016-11-23] MEDS: Iron Polysaccharides Complex 150 MG Cap PO SCH ×2 (08:46→21:20)
[2016-11-23] MEDS: Benazepril 10 MG Tab PO SCH (08:46)
[2016-11-23] MEDS: amLODIPine 5 MG Tab PO SCH (08:47)
[2016-11-23] MEDS: predniSONE 20 MG Tab PO SCH (08:47)
[2016-11-23] MEDS: Metoprolol Tartrate 25 MG Tab PO SCH (08:48)
[2016-11-23] MEDS: Potassium Chloride 10 MEQ Tab.ER PO SCH (08:49)
[2016-11-23] MEDS: cloNIDine 0.1 MG Tab PO SCH ×2 (08:50→21:22)
[2016-11-23] MEDS: Spironolactone 25 MG Tab PO SCH (08:50)
--- NOTE | 2016-11-23 09:06 | CR ---
{null, Clinical history: 76-year-old male reported on 20 november to have "cardiomegaly with bibasilar effusions ". Follow-up evaluation please. Interpretation: Abnormal. Persistent cardiomegaly, generalized venous congestion and now asymmetric patchy new alveolar consol idation (atypical pulmonary edema? Lobar pneumonia?). Persistent dependent subpulmonic pleural effusions blunting the posterior costophrenic sulci and asy mmetric atelectasis or infiltrate posterior segment right lower lobe. No sign of lung mass, hilar lymphadenopathy or lobar consolidation left lung. CONCLUSION: Cardiovascular decompensation with underlying atelectasis, atypical pulmonary edema or i nfiltrate/infarct right lung. }
--- NOTE | 2016-11-23 09:12 | PN ---
{null, DATE: 11/23/2016 Denies any specific difficulties, less of cough. No significant expectoration. No chest pain or palpitations. No postural dizziness. No abdominal pain. Bowel movements have been regular. No bright red rectal bleeding. OBJECTIVE: General: Alert, oriented, not short of breath at rest. Vital Signs: Weight 199 pounds, pulse 64 per minute. Lungs: No adventitious sounds heard. Heart: S1 and S2, regular. Extremities: No pitting edema of the legs noted. Abdomen: Obese, soft. Mild tenderness elicited in the right periumbilical area. Bowel sounds active. INVESTIGATIONS: Hemoglobin 7.9, hematocrit 25.9, platelet 278,000. WBC 7400 with 79 neutrophils. Chemistry panel shows abnormal BUN 42, creatinine 2.1, glucose 140, bilirubin 1.8, AST 51, ALT 96, CRP down to 4.7. RECOMMENDATIONS: Chart reviewed. Medication list is scanned. Further close observation. Packed cell transfusions as needed. Followup CT after few weeks to check on resolution of intra-abdominal hematoma. IMPRESSION: 1. Anemia, multifactorial. 2. Intra-abdominal hematoma. 3. Exogenous obesity. 4. Paroxysmal atrial fibrillation. 5. Bacterial pneumonitis. 6. Type 2 diabetes mellitus. [facility] /[id number] [facility] }
[2016-11-23] MEDS: Metoprolol Tartrate 50 MG Tab PO SCH ×2 (11:54→21:21)
[2016-11-23] MEDS: Levofloxacin/Dextrose 5%-Water 750 MG in Premix Bag 1 BAG IV SCH (11:55)
--- NOTE | 2016-11-23 12:48 | PN ---
{null, DATE: 11/23/2016 HISTORY OF PRESENT ILLNESS: Mr. Rupesh Ash is a 76-year-old male with medical history significant for hypertension, hyperlipidemia, atrial fibrillation, had complications with anticoagulation including retroperitoneal bleed, acute renal failure, and was made comfort care at [facility], presented here with complaints of increasing shortness of breath and was noted to have possible pneumonia and a possible acute congestive heart failure with bilateral pleural effusion and was admitted to the hospital. For the past 24 hours, the patient denies any complaints of chest pain. No shortness of breath. No abdominal pain. No nausea. No vomiting. No diarrhea. Had some good bowel movements. REVIEW OF SYSTEMS: Cardiovascular, respiratory, gastrointestinal, neurology, constitutional were all evaluated. PHYSICAL EXAMINATION: Vital Signs: Temperature of 97.4, pulse of 62, blood pressure 131/56, saturating at 91% on 3 L of oxygen, and respiratory rate of 20. General Appearance: The patient is well oriented to time, place, and person. Follows commands spontaneously. Cardiovascular System: S1 and S2 heard with normal intensity. No gallops. Respiratory: Clear to auscultation bilaterally. Mild crepitations at the bases. No wheeze. Abdomen: Soft. Bowel sounds positive. Distended, mildly tender. No rigidity. No guarding. No rebound tenderness. Extremities: No edema in bilateral lower extremities. Neurology: No gross focal neurological deficit. MEDICATIONS: 1. DuoNeb 3 mL nebulizer every 6 hours as needed. 2. Norvasc 10 mg daily. 3. Lipitor 20 mg at bedtime. 4. Clonidine 0.1 mg twice a day. 5. Glipizide 10 mg twice a day. 6. Mucinex 600 mg three times a day. 7. Levaquin every 48 hours. 8. Lorazepam 1 mg every 4 hours. 9. Metoprolol 100 mg twice a day. 10.Morphine 2 mg IV every 2 hours as needed for pain. 11.Oxycodone 5 mg every 4 hours as needed. 12.Protonix 40 mg daily. 13.MiraLax 17 g p.o. daily. 14.Potassium chloride 20 mEq at breakfast. 15.Prednisone 40 mg at breakfast. 16.Spironolactone 50 mg daily. 17.Zolpidem 5 mg at bedtime as needed for sleep. LABORATORY DATA: Reviewed. WBC 7.4, hemoglobin 7.9, hematocrit 25.9, and platelet count 278. Sodium 139, potassium 4.5, chloride 105, bicarb 27, BUN 42, creatinine 2.1, and glucose 163. ASSESSMENT: 1. Pneumonia. 2. Atrial fibrillation. 3. Acute retroperitoneal bleed. 4. Abdominal discomfort. 5. Chronic congestive heart failure. 6. Anemia. 7. Generalized weakness. 8. Type 2 diabetes mellitus. 9. Hypertension. PLAN: 1. Pneumonia. The patient was admitted with shortness of breath and noted to have possible pneumonia. The patient was started on IV antibiotics. We will continue the same. So far, his cultures remain negative. He remained afebrile. 2. Chronic congestive heart failure, remains stable. The patient was noted to have pleural effusion on initial presentation. His shortness of breath has much improved. Closely follow with input, output, and daily weights. 3. Retroperitoneal bleed. This occurred as a complication of coagulopathy in the past. He is off the anticoagulation. His bleed seems to be stable. 4. Anemia. This is mainly from his acute blood loss. His hemoglobin is 7.9. He might benefit from blood transfusion. We will discuss this further with the patient and family members, who does not want much intervention at this time. 5. Hypertension. The patient's blood pressure seems to be in acceptable range. Continue with current antihypertensive medication. 6. Type 2 diabetes mellitus. Check his fingersticks with each meals, have him on supplemental scale insulin as needed for additional coverage of his blood glucose. 7. Lung nodule. This was addressed by Dr. Ramey on his previous visit to the family members and they are advised to follow with this as an outpatient. No intervention planned at this time. 8. We will have Physical Therapy and Occupational Therapy evaluate and treat the patient. 9. We will possibly switch him to swing bed for continued antibiotic tomorrow once he is more medically stable. [facility] /[id number] }
[2016-11-23] MEDS: Sodium Chloride 0.9% 10 ML Syringe FLUSH PRN (13:44)
[2016-11-23] MEDS: atorvaSTATin 20 MG Tab PO SCH (21:22)
[2016-11-24] MEDS: Albuterol/Ipratropium 3.0-0.5 MG/3 ML Neb Soln NEB SCH ×3 (01:28→13:20)
[2016-11-24] MEDS: Sodium Chloride 0.9% 10 ML Syringe FLUSH PRN (03:32)
[2016-11-24] MEDS: Pantoprazole 40 MG Vial IVPUSH SCH (03:32)
[2016-11-24] MEDS: glipiZIDE 5 MG Tab PO SCH ×2 (06:17→17:19)
[2016-11-24] MEDS: Insulin Aspart 100 Units/ML 3 ML Pen SUBCUT SCH ×4 (08:37→21:26)
[2016-11-24] MEDS: predniSONE 20 MG Tab PO SCH (08:39)
[2016-11-24] MEDS: Iron Polysaccharides Complex 150 MG Cap PO SCH ×2 (08:40→21:23)
[2016-11-24] MEDS: Spironolactone 25 MG Tab PO SCH (08:41)
[2016-11-24] MEDS: amLODIPine 5 MG Tab PO SCH (08:42)
[2016-11-24] MEDS: Metoprolol Tartrate 50 MG Tab PO SCH ×2 (08:44→21:23)
[2016-11-24] MEDS: cloNIDine 0.1 MG Tab PO SCH ×2 (08:44→21:23)
--- NOTE | 2016-11-24 09:10 | PN ---
{null, DATE: 11/24/2016 SUBJECTIVE: Feels much better. Did not cough last night. No significant expectoration. No chest pain or palpitations. No abdominal pain. No rectal bleeding. No postural dizziness. Alert and oriented, not short of breath at rest. OBJECTIVE: Vital Signs: Temperature 97.7, pulse 68 per minute, BP 152/62, O2 saturation 94. Lungs: Few bilateral scattered rhonchi heard. Heart: S1 and S2, regular. Abdomen: Obese, soft. Some tenderness elicited right flank area. No significant leg edema noted. No phlebitis. INVESTIGATIONS: Hemoglobin 7.7, hematocrit 25.3, platelet 262,000. WBC 5900, BUN 42, creatinine 1.8, glucose 138. RECOMMENDATIONS: Continue with close observation with periodic hemoglobin and hematocrit determinations. We will repeat CT scan of the abdomen and pelvis after few weeks to check on resolution of intraabdominal hematoma. When stabilized, we will proceed with endoscopic studies with reference to the GI bleeding, earlier if indicated. IMPRESSION: 1. Intraabdominal hematoma, resolving. 2. Gastrointestinal bleeding, stable. 3. Anemia, multifactorial. 4. Paroxysmal atrial fibrillation. [facility] /[id number] }
--- NOTE | 2016-11-24 12:44 | PN ---
{null, DATE: 11/24/2016 SUBJECTIVE: Mr. Rupesh Ash is a 76-year-old male with a medical history significant for hypertension, hyperlipidemia, atrial fibrillation, complications with anticoagulation including retroperitoneal bleed, acute renal failure, and was made comfort cares at [facility] presented today with complaints of increasing shortness of breath and was noted to have possible pneumonia and possible acute congestive heart failure with bilateral pleural effusion. For the past 24 hours, the patient denies any complaints of chest pain. No shortness of breath. No abdominal pain but condition of mild abdominal discomfort. He is able to tolerate oral feeds well. He had a good bowel movement. He still continues to have weakness and tiredness and ambulation requiring physical therapy. REVIEW OF SYSTEMS: Cardiovascular, respiratory, gastrointestinal, neurology, constitutional were all evaluated. PHYSICAL EXAMINATION: Vital Signs: Temperature of 96, blood pressure of 139/63, respiratory rate of 20, saturating at 96% on room air. General Appearance: The patient is well oriented to time, place, and person. Follows commands spontaneously. Cardiovascular System: S1, S2 heard with normal intensity. No gallops. Respiratory: Clear to auscultation bilaterally. No wheeze. Minimal crepitations at the bases. No wheeze. Abdomen: Soft. Bowel sounds positive. Nontender. No rigidity. Distended. Tympanic to percussion on the right side. Extremities: No edema bilateral lower extremities. Neurology: No gross focal neurological deficits. Skin: No acute rash. MEDICATIONS: 1. DuoNeb 3 mL nebulizer every 6 hours hourly. 2. Norvasc 10 mg daily. 3. Lipitor 20 mg at bedtime. 4. Clonidine 0.1 mg twice a day. 5. Glipizide 10 mg twice a day. 6. Mucinex 600 mg 3 times a day as needed for cough. 7. Levofloxacin 750 mg every 48 hours. 8. Metoprolol 100 mg twice a day. 9. Morphine 2 mg IV every 2 hours as needed for pain. 10.Oxycodone 5 mg every 4 hours as needed for pain. 11.Protonix daily. 12.Prednisone 40 mg with breakfast. 13.Spironolactone 50 mg daily. 14.Ambien 5 mg at bedtime as needed for sleep. LABS: Include WBC 5.9, hemoglobin 7.7, hematocrit 25.3, and platelet count 262. Sodium 139, potassium 4.8, chloride 106, bicarb 27, BUN 42, creatinine 1.8, and glucose 193. ASSESSMENT: 1. Pneumonia. 2. Atrial fibrillation. 3. Acute retroperitoneal bleed. 4. Anemia due to acute blood loss. 5. Abdominal discomfort. 6. Chronic congestive heart failure. 7. Generalized weakness. 8. Type 2 diabetes mellitus. 9. Hypertension. PLAN: 1. Pneumonia. The patient was noted to have possible pneumonia at the time of admission. The patient is currently on Levaquin. We will continue the same. So far, his cultures remain negative. 2. Chronic congestive heart failure, remains stable. Continue with gentle diuresis. Closely monitor his input, output, and daily weights. 3. Retroperitoneal bleed. The patient continues to have acute retroperitoneal bleed. The patient had a CT scan of the abdomen and pelvis on this admission, which showed a huge hematoma closely follow. This is complicating his bowel movements leading to bowel ileus. 4. Anemia due to acute blood loss. The patient continues to have low hemoglobin at 7.7. We will transfuse at least 2 units of packed red blood cells. His stool for occult blood was positive. The patient was evaluated by GI team. He will be followed with them as an outpatient. 5. Hypertension. The patient's blood pressure seems to be in the acceptable range. Continue with current antihypertensive medication. Try to avoid any hypotensive episodes. 6. Type 2 diabetes mellitus. The patient is currently on insulin regimen and also on glipizide, continue the same. Try to avoid any hypoglycemic episodes. Have him on hypoglycemic protocol. 7. Abdominal discomfort. This is mainly from his ileus. He is able to have a good bowel movements. No nausea. No vomiting. No diarrhea noted at this time. 8. The patient will receive at least 2 units of packed red blood cell and possibly discharge him to swing bed in a.m. once he is more stable. He would need continued physical therapy and occupational therapy prior to going home. [facility] /[id number] }
[2016-11-24] MEDS ORDERED: Albuterol/Ipratropium 3.0-0.5 MG/3 ML Neb Soln NEB PRN (16:08)
[2016-11-24] MEDS: atorvaSTATin 20 MG Tab PO SCH (21:23)
[2016-11-25] MEDS: Sodium Chloride 0.9% 10 ML Syringe FLUSH PRN ×3 (03:08→12:01)
[2016-11-25] MEDS: Pantoprazole 40 MG Vial IVPUSH SCH (03:09)
[2016-11-25] MEDS: glipiZIDE 5 MG Tab PO SCH (05:49)
[2016-11-25] MEDS: Insulin Aspart 100 Units/ML 3 ML Pen SUBCUT SCH ×2 (07:35→12:32)
[2016-11-25] MEDS: predniSONE 20 MG Tab PO SCH (07:47)
[2016-11-25] MEDS: Iron Polysaccharides Complex 150 MG Cap PO SCH (08:46)
[2016-11-25] MEDS: Spironolactone 25 MG Tab PO SCH (08:46)
[2016-11-25] MEDS: Metoprolol Tartrate 50 MG Tab PO SCH (08:47)
[2016-11-25] MEDS: amLODIPine 5 MG Tab PO SCH (08:47)
[2016-11-25] MEDS: cloNIDine 0.1 MG Tab PO SCH (08:48)
[2016-11-25] MEDS: Levofloxacin/Dextrose 5%-Water 750 MG in Premix Bag 1 BAG IV SCH (10:31)
[2016-11-25 11:18] VITALS: BP 137/61
--- NOTE | 2016-11-26 03:24 | DISCH ---
{null, ADMITTING DIAGNOSES: 1. Possible pneumonia. 2. Possible acute congestive heart failure exacerbation with diastolic dysfunction. 3. Acute on chronic renal failure. 4. Anemia. 5. Generalized weakness. DISCHARGE DIAGNOSES: 1. Pneumonia, resolved with IV antibiotics. Patient completed 1 week of IV antibiotic course. 2. Possible acute on chronic congestive heart failure secondary to diastolic dysfunction, improved with Lasix. 3. Anemia due to acute blood loss, requiring blood transfusion on this admission, 2 units. 4. Abdominal distention with discomfort secondary to huge retroperitoneal bleed. HISTORY OF PRESENTING ILLNESS: Mr. Nilsa Goddard is a 76-year-old male with medical history significant for hypertension, hyperlipidemia, type 2 diabetes mellitus, history of atrial fibrillation, had complications with anticoagulation, resulting in huge retroperitoneal bleed, needing to stop the anticoagulation. He was admitted to the hospital on 18 of November with complaints of increasing shortness of breath and was noted to have possible pneumonia. The patient was started on broad-spectrum antibiotic with Levaquin and vancomycin for possible community-acquired pneumonia versus hospital-acquired pneumonia. The patient responded well to the treatment. We were able to switch him to IV Levaquin. He was also noted to have elevated BNP, requiring Lasix treatment and albumin treatment on this admission. He was noted to have a good ejection fraction of 60% on his recent echocardiogram. He was noted to have possible diastolic dysfunction. He was continued on spironolactone. He was also noted to have acute on chronic renal failure at the time of admission, needing dose adjustment of medications. We held EMILE inhibitors secondary to acute on chronic renal failure, after which his kidney function has improved. He was also noted to have worsening anemia with hemoglobin dropping down to 7.9, requiring 2 units of blood transfusion on this admission. He responded well to the treatment. He continued to have weakness and tiredness, requiring more physical therapy and occupational therapy, so unable to be discharged to home. The patient is being discharged to swing bed at this time for continued physical therapy and occupational therapy and continued monitoring. He is discharged to the swing bed in stable condition. PHYSICAL EXAMINATION: Vital Signs: On the day of discharge vitals; temperature of 97.5, pulse of 70, blood pressure 158/70, respiratory rate of 20, saturating at 95% on room air. General Appearance: Patient is well-oriented to time, place, and person. Follows commands spontaneously. Cardiovascular: S1, S2 heard with normal intensity. No gallops. Regular heart rate. Respiratory: Clear to auscultation bilaterally. No wheeze. No crepitations. Abdomen: Soft. Bowel sounds positive. Distended. No rigidity. No guarding. No rebound tenderness. Extremities: No edema of bilateral lower extremities. Neurology: No gross focal neurological deficits. Skin: No acute rash noted. DISCHARGE MEDICATIONS: Include: 1. Tylenol 650 mg every 4 hours as needed for pain. 2. DuoNeb nebulizer every 6 hours as needed for shortness of breath. 3. Calcium with vitamin D tablet daily. 4. Iron 150 mg twice a day. 5. Lorazepam 0.25 mg at bedtime. 6. Milk of magnesia 30 mL oral every 6 hours as needed for constipation. 7. Metoprolol 100 mg twice a day. 8. Spironolactone 25 mg daily. 9. Ambien 5 mg at bedtime as needed for sleep. 10.Lipitor 20 mg at bedtime. 11.Clonidine 0.1 mg twice a day. 12.Glipizide 10 mg twice a day. The patient is advised to stop taking the metoprolol 75 mg twice a day and stop taking the benazepril with Norvasc. Stop taking the metformin secondary to his renal failure. CONDITION ON ADMISSION: Poor. CONDITION ON DISCHARGE: Stable. DISPOSITION: Discharged to swing bed for continued PT/OT. ACTIVITY: As tolerated. DIET: Cardiac healthy diet and consistent carbohydrate diet. Spent over 35 minutes of time in evaluating and treating this patient and making discharge planning and orders. [facility] /[id number] }
== END 2016-11-25 12:32 | disposition swing bed (61) | DRG 291 ==
LOC: DL.ED 22:21 → DL.MS 11-18 02:20 → UNDOADMIN 11-18 02:20 → DL.MS 11-18 03:00
PROVIDERS: ADMIT Family Medicine; ATTEND Family Medicine
PROC: 30253N1 (ICD-10-PCS; principal; 2016-11-18)
DX: I50.9 Heart failure, unspecified (principal); I48.2 Chronic atrial fibrillation; I13.0 Hypertensive heart and chronic kidney disease with heart failure and stage 1 through stage 4 chronic kidney disease, or unspecified chronic kidney disease; J18.9 Pneumonia, unspecified organism; I50.33 Acute on chronic diastolic (congestive) heart failure; K66.1 Hemoperitoneum; D62 Acute posthemorrhagic anemia; N17.9 Acute kidney failure, unspecified; R17 Unspecified jaundice; I48.0 Paroxysmal atrial fibrillation; N18.3 Chronic kidney disease, stage 3 (moderate); Z79.01 Long term (current) use of anticoagulants; R33.9 Retention of urine, unspecified; I95.9 Hypotension, unspecified; Z79.84 Long term (current) use of oral hypoglycemic drugs; E78.5 Hyperlipidemia, unspecified; Z85.46 Personal history of malignant neoplasm of prostate; E88.09 Other disorders of plasma-protein metabolism, not elsewhere classified; E87.6 Hypokalemia; R14.0 Abdominal distension (gaseous); K80.20 Calculus of gallbladder without cholecystitis without obstruction; R91.1 Solitary pulmonary nodule; Z79.4 Long term (current) use of insulin; E66.09 Other obesity due to excess calories; K56.41 Fecal impaction; E83.51 Hypocalcemia; L89.309 Pressure ulcer of unspecified buttock, unspecified stage; E11.622 Type 2 diabetes mellitus with other skin ulcer
CPT/HCPCS: 36415; 71010; 74000; 80053; 82553; 83880; 84484; 85025; 85610; 87040 ×2; 93005; 93010; 96365; 96375; 99285 ×2; A9270; J1940; J3480; 36430; 71020; 74176; 80048; 81001; 82272; 82962; 83735; 84100; 84443; 85027; 86140; 86850; 86900; 86901; 86920; 86922; 87070; 87205; 94010; 94640; 94667; 97110-GO; 97110-GP; 97116-GP; 97162-GP; 97165-GO; 97530-GO; C9113; J0456; J0696; J1815-GY; J1956; J3370; J7050; P9016; P9047

== ENCOUNTER 2016-11-25 10:56 | Inpatient (IN) | payer MEDICARE ==
[2016-11-25] MEDS ORDERED: Docusate Sodium 100 MG Cap PO PRN (11:33)
[2016-11-25] MEDS ORDERED: Magnesium Hydroxide 400 MG/5 ML Susp 30 ML Cup PO PRN (11:33)
[2016-11-25] MEDS ORDERED: oxyCODONE 5 MG Tab PO PRN (11:33)
[2016-11-25] MEDS ORDERED: Ondansetron 4 MG Tab.DIS PO PRN (11:33)
[2016-11-25] MEDS ORDERED: Polyethylene Glycol 3350 Powder 17 GM Packet PO PRN (11:33)
[2016-11-25] MEDS ORDERED: Zolpidem 5 MG Tab PO PRN (11:33)
[2016-11-25] MEDS ORDERED: Albuterol/Ipratropium 3.0-0.5 MG/3 ML Neb Soln NEB PRN (11:37)
[2016-11-25] MEDS ORDERED: Acetaminophen 325 MG Tab PO PRN (11:37)
[2016-11-25] MEDS ORDERED: 50% Dextrose in Water 50 ML Syringe IVPUSH PRN (11:38)
--- NOTE | 2016-11-25 13:05 | HP ---
CHIEF COMPLAINT: The patient transferred to swing bed for continued physical therapy and occupational therapy for his generalized debility. HISTORY OF PRESENT ILLNESS: Mr. Nilsa Goddard is a 76-year-old male with medical history significant for hypertension, type 2 diabetes mellitus, hyperlipidemia, recently diagnosed with atrial fibrillation and had complications with anticoagulation resulting in large retroperitoneal hematoma resulting in abdominal colonic ileus and abdominal distention and also complicated with anemia due to acute blood loss requiring blood transfusions admitted to the acute care settings on November 18, 2016, with increasing shortness of breath and was noted to be in acute congestive heart failure secondary to diastolic dysfunction and also possible pneumonia. The patient was treated with IV vancomycin and Levaquin. He has completed his 1-week course of IV antibiotics and also received Lasix. His symptoms got better, but he continue to have weakness and tiredness. Continue to receive physical therapy and occupational therapy. He also received blood transfusion 2 units during the acute stay, has requiring more physical therapy. He is admitted to swing bed at this time. The patient denied any complaints of chest pain. No shortness of breath at this time. Denies any abdominal pain. No nausea. No vomiting. No diarrhea. PAST MEDICAL HISTORY: Significant for hypertension, type 2 diabetes mellitus, hyperlipidemia, atrial fibrillation, complications with anticoagulation resulting in large retroperitoneal hematoma on the right side. Anemia due to acute blood loss requiring blood transfusions. PAST SURGICAL HISTORY: 1. Significant for prostate needle biopsy, laparoscopic appendicectomy, upper endoscopy and colonoscopy with biopsy. 2. Transurethral resection of the prostate. FAMILY HISTORY: Significant for cancer in his mother and father. Thyroid cancer in his mother and lung cancer in his father. SOCIAL HISTORY: The patient denies any history of smoking tobacco. No history of alcohol intake. ALLERGIC HISTORY: No known drug allergies. MEDICATIONS: 1. Tylenol 650 mg every 4 hours as needed for pain. 2. DuoNeb every 6 hours as needed for shortness of breath. 3. Calcium with vitamin D one tablet daily. 4. Iron tablet 150 mg twice a day. 5. Lorazepam 0.25 mg at bedtime. 6. Milk of magnesia 30 mL every 6 hours as needed for constipation. 7. Metoprolol 100 mg twice a day. 8. Spironolactone 25 mg daily. 9. Ambien 5 mg at bedtime as needed for sleep. 10.Norvasc 10 mg daily. 11.Lipitor 20 mg at bedtime. 12.Clonidine 0.1 mg twice a day. 13.Glipizide 10 mg oral twice a day. REVIEW OF SYSTEMS: A complete review of system including skin, ear, nose, and throat, cardiovascular system, respiratory system, gastrointestinal system, genitourinary system, hematology, oncology, neurology, allergy, immunology, constitutional were all evaluated. PHYSICAL EXAMINATION: General: The patient is well oriented to time, place, and person. Follows commands spontaneously. Cardiovascular System: S1, S2 heard with normal intensity. No gallops. Respiratory: Clear to auscultation bilaterally. No wheeze. No crepitations. Abdomen: Soft. Bowel sounds positive. Nontender. No rigidity. Looks distended. Extremities: No edema in bilateral lower extremities. Neurology: No gross focal neurological deficits. ASSESSMENT: 1. Generalized debility requiring physical therapy and occupational therapy. 2. Anemia due to acute blood loss requiring blood transfusion. 3. Huge retroperitoneal bleed as a complication of coagulopathy from Coumadin use. 4. Atrial fibrillation. 5. Hypertension. 6. Type 2 diabetes mellitus. 7. Hyperlipidemia. PLAN: 1. Generalized debility. This is mainly from his blood loss and frequent hospitalization. He would require continued physical therapy and occupational therapy on this admission. We will closely follow. 2. Anemia. The patient received blood transfusion during his acute stay. We will repeat a CBC in a.m. to make sure his hemoglobin is stable. 3. Atrial fibrillation. His rate is controlled. He is currently on metoprolol. Continue the same anticoagulation contraindicated secondary to continued anemia and huge of retroperitoneal bleed. 4. Hypertension. We will continue with current antihypertensive medication. He is on Norvasc and metoprolol, continue the same. 5. Type 2 diabetes mellitus. Continue with glipizide, have him on supplemental scale insulin as needed for additional coverage of his blood glucose. We will check his fingersticks with each meals. 6. DVT prophylaxis. We use CHLOE hose for DVT prophylaxis and increase the patient to ambulate. Heparin product contraindicated secondary to the retroperitoneal hematoma. 7. Discussed with the patient and family members regarding the plan of care. Reviewed the labs and medications. Reviewed the old charts. [facility] /[id number]
[2016-11-25] MEDS: Insulin Aspart 100 Units/ML 3 ML Pen SUBCUT SCH ×2 (13:43→17:16)
[2016-11-25] MEDS ORDERED: Insulin Aspart 100 Units/ML 3 ML Pen SUBCUT SCH (14:00)
[2016-11-25] MEDS ORDERED: Sodium Chloride 0.9% 10 ML Syringe FLUSH PRN (14:39)
[2016-11-25] MEDS: atorvaSTATin 20 MG Tab PO SCH (20:17)
[2016-11-25] MEDS: Metoprolol Tartrate 50 MG Tab PO SCH (20:18)
[2016-11-25] MEDS: glipiZIDE 5 MG Tab PO SCH (20:18)
[2016-11-25] MEDS: Iron Polysaccharides Complex 150 MG Cap PO SCH (20:19)
[2016-11-25] MEDS: LORazepam 0.5 MG Tab PO SCH (20:19)
[2016-11-25] MEDS: cloNIDine 0.1 MG Tab PO SCH (20:19)
[2016-11-26] MEDS: Insulin Aspart 100 Units/ML 3 ML Pen SUBCUT SCH ×4 (08:04→20:32)
[2016-11-26] MEDS: Calcium Carbonate/Vitamin D3 1250 MG-200 Unit Tab PO SCH (09:23)
[2016-11-26] MEDS: Spironolactone 25 MG Tab PO SCH (09:23)
[2016-11-26] MEDS: Iron Polysaccharides Complex 150 MG Cap PO SCH ×2 (09:24→20:29)
[2016-11-26] MEDS: cloNIDine 0.1 MG Tab PO SCH ×2 (09:24→20:31)
[2016-11-26] MEDS: glipiZIDE 5 MG Tab PO SCH ×2 (09:24→20:29)
[2016-11-26] MEDS: Metoprolol Tartrate 50 MG Tab PO SCH ×2 (09:25→20:28)
[2016-11-26] MEDS: amLODIPine 5 MG Tab PO SCH (09:26)
[2016-11-26] MEDS ORDERED: Insulin Aspart 100 Units/ML 3 ML Pen SUBCUT SCH ×2 (11:00→11:07)
--- NOTE | 2016-11-26 11:23 | PN ---
DATE: 11/26/2016 SUBJECTIVE: Mr. Rupesh Ash is a 76-year-old male with a medical history significant for hypertension, type 2 diabetes mellitus, hyperlipidemia, with atrial fibrillation and coagulopathy caused by anticoagulation leading to retroperitoneal bleed currently in swing bed. For the past 24 hours, the patient denies any complaints of chest pain. No shortness of breath. No abdominal pain. No nausea. No vomiting. No diarrhea. The patient continues to be hypoxic on ambulation, but he is able to saturate well on room air. REVIEW OF SYSTEMS: Cardiovascular, respiratory, gastrointestinal, neurology, constitutional were all evaluated. PHYSICAL EXAMINATION: Vital Signs: Temperature of 97.7, pulse 60, blood pressure 158/67, respiratory rate 20, and saturating at 93% on room air. General: The patient is alert and oriented to time, place, and person. Follows commands spontaneously. Cardiovascular: S1 and S2 heard with no murmurs, no gallops. Respiratory: Clear to auscultation bilaterally. No wheeze. No crepitations. Dull to percussion on the right lower lobe. No wheeze. Abdomen: Soft, bowel sounds positive, distended. No rigidity. No guarding. No rebound tenderness. Extremities: No edema in bilateral lower extremities. Neurology: No gross focal neurological deficits. MEDICATIONS: Reviewed. Continue with Tylenol 650 mg every 4 hours as needed for pain, DuoNeb 3 mL nebulizer every 6 hours as needed, docusate sodium 100 mg twice a day as needed, insulin supplemental scale, NovoLog, lorazepam 0.25 mg at bedtime as needed, metoprolol 100 mg twice a day, spironolactone 25 mg daily, Norvasc 10 mg daily, clonidine 0.1 mg twice a day, glipizide 10 mg twice a day, oxycodone 5 mg every 4 hours as needed for pain. LABS: Hemoglobin 10.5, hematocrit 32.9, WBC 6.8, and platelet count 141. ASSESSMENT: 1. Generalized debility. 2. Acute retroperitoneal bleed. 3. Right-sided pleural effusion. 4. Chronic congestive heart failure. 5. Type 2 diabetes mellitus. 6. Hypertension. 7. Hyperlipidemia. 8. Atrial fibrillation. 9. Anemia due to acute blood loss, requiring blood transfusion. PLAN: 1. Generalized debility. The patient is tolerating physical therapy and occupational therapy very well. In the swing bed, continue with PT/OT for now. 2. Anemia. The patient received blood transfusion after which his hemoglobin is stable at this time. The patient had huge retroperitoneal bleed as a complication of anticoagulation. 3. Atrial fibrillation. The patient rates seems to be well controlled. Continue with metoprolol at 100 mg twice a day. No indication for anticoagulation at this time. 4. Hypertension. The patient's blood pressure seems to be in acceptable range. Continue with current antihypertensive medication with Norvasc and metoprolol. The patient was on EMILE inhibitor, but on hold currently secondary to renal failure. We will recheck a basic metabolic panel in the a.m. 5. Type 2 diabetes mellitus in acceptable range. Continue with glipizide. Continue to hold the metformin secondary to renal failure and continue supplemental scale insulin as needed. Check his fingersticks with each meals and have him on supplemental scale insulin as needed for additional coverage of his blood glucose. Have him on hypoglycemic protocol. 6. Deep vein thrombosis prophylaxis. Use CHLOE hose for DVT prophylaxis. Avoid any heparin products secondary to the retroperitoneal bleed and anemia due to acute blood loss. [facility] /[id number]
[2016-11-26] MEDS: LORazepam 0.5 MG Tab PO SCH (20:27)
[2016-11-26] MEDS: atorvaSTATin 20 MG Tab PO SCH (20:32)
[2016-11-27] MEDS: Iron Polysaccharides Complex 150 MG Cap PO SCH ×2 (09:28→20:29)
[2016-11-27] MEDS: glipiZIDE 5 MG Tab PO SCH ×2 (09:28→20:29)
[2016-11-27] MEDS: cloNIDine 0.1 MG Tab PO SCH ×2 (09:29→20:29)
[2016-11-27] MEDS: Calcium Carbonate/Vitamin D3 1250 MG-200 Unit Tab PO SCH (09:29)
[2016-11-27] MEDS: Spironolactone 25 MG Tab PO SCH (09:29)
[2016-11-27] MEDS: amLODIPine 5 MG Tab PO SCH (09:30)
[2016-11-27] MEDS: Metoprolol Tartrate 50 MG Tab PO SCH ×2 (09:31→20:28)
[2016-11-27] MEDS: Insulin Aspart 100 Units/ML 3 ML Pen SUBCUT SCH ×4 (09:33→21:01)
--- NOTE | 2016-11-27 12:17 | CR ---
CLINICAL HISTORY: 76-year-old male with cough. INTERPRETATION: Abnormal but subtle improvement (see below). Chronic small dependent subpulmonic pleural effusion on the right this patient with mild cardiomegal y noted on 23 Nov 2016 exam. Subtle "nonconsolidated midlung density" right midlung no longer evident. No sign of lung mass, alveolar edema or focal lobar pneumonia and, generalized less congested appear ance pulmonary vascularity, i.e., improved.
[2016-11-27] MEDS: atorvaSTATin 20 MG Tab PO SCH (20:27)
[2016-11-27] MEDS: LORazepam 0.5 MG Tab PO SCH (20:46)
[2016-11-28] MEDS: Insulin Aspart 100 Units/ML 3 ML Pen SUBCUT SCH ×4 (08:37→20:56)
[2016-11-28] MEDS: Metoprolol Tartrate 50 MG Tab PO SCH ×2 (09:20→20:10)
[2016-11-28] MEDS: Iron Polysaccharides Complex 150 MG Cap PO SCH ×2 (09:20→20:11)
[2016-11-28] MEDS: cloNIDine 0.1 MG Tab PO SCH ×2 (09:20→20:11)
[2016-11-28] MEDS: Spironolactone 25 MG Tab PO SCH (09:20)
[2016-11-28] MEDS: amLODIPine 5 MG Tab PO SCH (09:21)
[2016-11-28] MEDS: glipiZIDE 5 MG Tab PO SCH ×2 (09:21→20:10)
[2016-11-28] MEDS: Calcium Carbonate/Vitamin D3 1250 MG-200 Unit Tab PO SCH (09:25)
[2016-11-28] MEDS: atorvaSTATin 20 MG Tab PO SCH (20:10)
[2016-11-28] MEDS: LORazepam 0.5 MG Tab PO SCH (20:10)
[2016-11-29 07:31] VITALS: BP 144/63
[2016-11-29] MEDS: Iron Polysaccharides Complex 150 MG Cap PO SCH (08:11)
[2016-11-29] MEDS: Spironolactone 25 MG Tab PO SCH (08:11)
[2016-11-29] MEDS: Calcium Carbonate/Vitamin D3 1250 MG-200 Unit Tab PO SCH (08:11)
[2016-11-29] MEDS: glipiZIDE 5 MG Tab PO SCH (08:11)
[2016-11-29] MEDS: Metoprolol Tartrate 50 MG Tab PO SCH (08:12)
[2016-11-29] MEDS: amLODIPine 5 MG Tab PO SCH (08:12)
[2016-11-29] MEDS: cloNIDine 0.1 MG Tab PO SCH (08:12)
[2016-11-29] MEDS: Insulin Aspart 100 Units/ML 3 ML Pen SUBCUT SCH ×2 (08:49→12:31)
--- NOTE | 2016-11-29 12:56 | DISCH ---
ADMITTING DIAGNOSES: Generalized debility and weakness, requiring more physical therapy. DISCHARGE DIAGNOSES: Generalized debility and weakness, resolved. The patient is able to ambulate on his own. Other comorbidities include; 1. Hypertension. 2. Atrial fibrillation. 3. Complications with coagulopathy resulting huge retroperitoneal bleed. HISTORY OF PRESENTING ILLNESS: Mr. Nilsa Goddard is a 76-year-old male with medical history significant for hypertension, type 2 diabetes mellitus, hyperlipidemia, atrial fibrillation, was on anticoagulation, but had complications with a large retroperitoneal bleed, resulting in anemia due to acute blood loss, requiring multiple blood transfusions, was initially admitted to the hospital with possible pneumonia and was treated with antibiotics. He has completed his course of antibiotics while in the acute setting. The patient responded well to the treatment. He was evaluated by Physical Therapy and Occupational Therapy while in the swing bed. He is able to ambulate well without any difficulty. He remained hemodynamically stable. He is discharged home in stable condition. He is advised to follow with his primary care physician in the next one week of time. DISCHARGE MEDICATIONS: Include: 1. Tylenol 650 mg every 4 hours as needed for pain. 2. DuoNeb 3 mL nebulizer every 6 hours as needed for shortness of breath. 3. Calcium carbonate vitamin D one tablet daily. 4. Insulin NovoLog supplemental scale as needed. 5. Iron polysaccharide complex 150 mg twice a day. 6. Lorazepam 0.25 mg at bedtime. 7. Milk of magnesia 30 mL every 6 hours as needed for constipation. 8. Metoprolol 100 mg twice a day. 9. Polyethylene glycol 17 g oral daily. 10.Spironolactone 50 mg daily. 11.Ambien 5 mg at bedtime as needed for sleep. 12.Norvasc 10 mg daily. 13.Lipitor 20 mg at bedtime. 14.Clonidine 0.1 mg twice a day. 15.Glipizide 10 mg twice a day. 16.Mucinex 600 mg oral 3 times a day as needed for cough. 17.Metformin 1000 mg twice a day. 18.Oxycodone 5 mg every 4 hours as needed for pain. PHYSICAL EXAMINATION: Vital Signs: On the day of discharge, temperature of 97.8, pulse of 61, blood pressure 144/63, respiratory rate of 20, saturating at 98% on room air. General Appearance: The patient is well oriented to time, place, and person. Follows commands spontaneously. Cardiovascular System: S1 and S2 heard with normal intensity. No gallops. Respiratory System: Clear to auscultation bilaterally. No wheeze. No crepitations. Abdomen: Soft. Bowel sounds positive. Nontender. No rigidity. No guarding. No rebound tenderness. Extremities: No edema in bilateral lower extremities. Neurology: No gross focal neurological deficits. CONDITION ON ADMISSION: Stable. CONDITION ON DISCHARGE: Stable. ACTIVITY: As tolerated. DIET: Cardiac healthy diet and consistent carbohydrate diet. FOLLOWUP: Follow with primary care physician as scheduled. Spent over 35 minutes of time in evaluating and treating this patient and getting discharge paperwork. [facility] /[id number]
== END 2016-11-29 13:00 | disposition home or self-care (01) | DRG 948 ==
LOC: DL.MS 10:56 → UNDOADMIN 10:56 → DL.MS 11:34
PROVIDERS: ADMIT Internal Medicine; ATTEND Internal Medicine
DX: R53.81 Other malaise (principal); D62 Acute posthemorrhagic anemia; I50.32 Chronic diastolic (congestive) heart failure; E11.9 Type 2 diabetes mellitus without complications; E78.5 Hyperlipidemia, unspecified; I48.91 Unspecified atrial fibrillation; R58 Hemorrhage, not elsewhere classified; T45.515A Adverse effect of anticoagulants, initial encounter; I10 Essential (primary) hypertension
CPT/HCPCS: 36415; 71020; 80048; 82962; 83880; 85018; 85027; 97110-GO; 97110-GP; 97116-GP; 97162-GP; 97165-GO; 97530-GO; A9270-GY; J7050

== ENCOUNTER 2019-10-31 17:40 | Emergency (ER) | payer MEDICARE ==
[2019-10-31 17:59] VITALS: BP 137/55; PULSE 52
[2019-10-31] MEDS ORDERED: Sodium Chloride 0.9% 10 ML Syringe FLUSH PRN (18:24)
--- NOTE | 2019-10-31 18:49 | EDM.PDOC ---
ED HPI GENERAL MEDICAL PROBLEM - General Chief Complaint: Neurological Problem Stated Complaint: DIZZY, HARD TIME STANDING UP, LEGS BUCKLE Time Seen by Provider: 10/31/19 18:45 Source of Information: Reports: Patient History Limitations: Reports: No Limitations - History of Present Illness INITIAL COMMENTS - FREE TEXT/NARRATIVE: c/o long h/o SOB but past few days been dizzy feeling like room is spinning but gone right now. denies CP but get SOB when walks short distance. appetite ok. sleeps in recliner to breath easier. states did fall few weeks ago and hit head but never got checked - Related Data Allergies Allergy/AdvReac Type Severity Reaction Status Date / Time No Known Allergies Allergy Verified 10/31/19 18:02 Home Meds: Home Meds Spironolactone 50 mg PO DAILY 10/29/16 [History] atorvaSTATin [Lipitor] 20 mg PO BEDTIME 10/29/16 [History] cloNIDine [Catapres] 0.2 mg PO TID 10/29/16 [History] glipiZIDE [Glipizide] 10 mg PO BID 10/29/16 [History] Calcium Citrate/Vitamin D3 [Calcium Citrate - Vit D3 Tab] 1 tab PO DAILY [History] LORazepam 0.25 mg PO BEDTIME 11/18/16 [History] Iron Polysaccharides Complex [Ferrex 150] 150 mg PO BID cap 11/25/16 [Rx] Magnesium Hydroxide [Milk of Magnesia] 30 ml PO Q6H PRN #0 cup 11/25/16 [Rx] Polyethylene Glycol 3350 [MiraLAX] 17 gm PO DAILY PRN 11/25/16 [History] Zolpidem [Ambien] 5 mg PO BEDTIME PRN #0 tablet 11/25/16 [Rx] guaiFENesin [Mucinex] 600 mg PO TID PRN 11/25/16 [History] oxyCODONE 5 mg PO Q4H PRN 11/25/16 [History] Gabapentin [Neurontin] 300 mg PO BEDTIME 10/31/19 [History] Insulin Glarg,Human.Rec.Analog [Lantus] 26 units SQ DAILY 10/31/19 [History] Metoprolol Tartrate [Lopressor] 150 mg PO BID 10/31/19 [History] allopurinoL [Zyloprim] 100 mg PO BEDTIME 10/31/19 [History] amLODIPine [Norvasc] 5 mg PO DAILY 10/31/19 [History] calcitrioL [Calcitriol] 0.25 mcg PO DAILY 10/31/19 [History] hydrALAZINE [Apresoline] 75 mg PO TID 10/31/19 [History] Past Medical History HEENT History: Reports: None Cardiovascular History: Reports: Afib, Heart Failure, High Cholesterol, Hypertension Respiratory History: Reports: Pneumonia, Recurrent Genitourinary History: Reports: Acute Renal Failure Musculoskeletal History: Reports: Fracture Neurological History: Reports: None, Head Trauma Psychiatric History: Reports: None Endocrine/Metabolic History: Reports: Diabetes, Type II Hematologic History: Reports: None Immunologic History: Reports: None Oncologic (Cancer) History: Reports: Prostate Dermatologic History: Reports: None - Infectious Disease History Infectious Disease History: Reports: Chicken Pox - Past Surgical History Head Surgeries/Procedures: Reports: None HEENT Surgical History: Reports: None GI Surgical History: Reports: Appendectomy Social & Family History - Family History Family Medical History: Noncontributory - Tobacco Use Smoking Status *Q: Never Smoker Second Hand Smoke Exposure: No - Caffeine Use Caffeine Use: Reports: Coffee, Soda - Recreational Drug Use Recreational Drug Use: No ED ROS GENERAL - Review of Systems Review Of Systems: Comprehensive ROS is negative, except as noted in HPI. ED EXAM, NEURO - Physical Exam Exam: See Below Exam Limited By: No Limitations General Appearance: Alert, WD/WN, No Apparent Distress Eye Exam: Bilateral Eye: PERRL (pupils ess ER @ 4mm) Ears: Hearing Grossly Normal Throat/Mouth: Normal Voice, No Airway Compromise Head Exam: Atraumatic Neck: Non-Tender, Full Range of Motion Respiratory/Chest: No Respiratory Distress, No Accessory Muscle Use, Rhonchi Cardiovascular: Regular Rate, Rhythm GI/Abdominal: Soft, Non-Tender Neurological: Alert, Normal Mood/Affect, Normal Gait, No Motor/Sensory Deficits , Oriented x 3 Extremities: Pedal Edema, Other (2+ bilateral) Psychiatric: Flat Affect Skin Exam: Warm, Dry, Normal Color Course - Vital Signs Last Recorded V/S: Last Vital Signs Temp 35.9 C L 10/31/19 17:51 Pulse 52 L 10/31/19 17:51 Resp 16 10/31/19 17:51 BP 137/55 L 10/31/19 17:51 Pulse Ox 97 10/31/19 17:51 - Orders/Labs/Meds Orders: Active Orders 24 hr Category Date Time Status EKG 12 Lead [EKG Documentation Completion] [RC] URGENT Care 10/31/19 18:10 Active Peripheral IV Care [RC] . DIRECTED Care 10/31/19 18:24 Active UA RFX KATHY AND CULT IF INDIC [URIN] Stat Lab 10/31/19 18:24 Ordered Sodium Chloride 0.9% [Saline Flush] Med 10/31/19 18:24 Active 10 ml FLUSH ASDIRECTED PRN Peripheral IV Insertion Adult [OM.PC] Stat Oth 10/31/19 18:24 Ordered Medication Orders Sodium Chloride (Saline Flush) 10 ml FLUSH ASDIRECTED PRN PRN Reason: Keep Vein Open Last Admin: 10/31/19 18:50 Dose: 10 ml Labs: Laboratory Tests 10/31/19 10/31/19 10/31/19 Range/Units 18:33 18:33 18:33 WBC 8.7 (5.0-10.0) 10^3/uL RBC 3.24 L (4.6-6.2) 10^6/uL Hgb 9.3 L D (14.0-18.0) g/dL Hct 28.1 L (40.0-54.0) % MCV 86.7 D (80-100) fL MCH 28.7 (27.0-34.0) pg MCHC 33.1 (33.0-35.0) g/dL Plt Count 247 D (150-450) 10^3/uL Neut % (Auto) 67.6 (42.2-75.2) % Lymph % (Auto) 19.7 L (20.5-50.1) % [place] % (Auto) 10.2 H (2-8) % Eos % (Auto) 2.2 (1.0-3.0) % Baso % (Auto) 0.3 (0.0-1.0) % PT 9.7 (9.0-12.0) SEC INR 1.0 (0.9-1.2) Sodium 142 (136-145) mmol/L Potassium 3.2 L (3.5-5.1) mmol/L Chloride 103 (98-107) mmol/L Carbon Dioxide 27 (21-32) mmol/L Anion Gap 15.2 H (7-13) mEq/L BUN 93 H (7-18) mg/dL Creatinine 7.38 H* (0.70-1.30) mg/dL Est Cr Clr Drug Dosing 7.85 mL/min Estimated GFR (MDRD) 7 BUN/Creatinine Ratio 12.6 (No establ ref range) Glucose 175 H (74-99) mg/dL Calcium 8.7 (8.5-10.1) mg/dL Total Bilirubin 0.3 (0.2-1.0) mg/dL AST 12 L (15-37) U/L ALT 21 (16-63) U/L Alkaline Phosphatase 83 (46-116) U/L Troponin I < 0.017 (0.000-0.056) ng/mL B-Natriuretic Peptide 791 H (0-100) pg/ml Total Protein 6.6 (6.4-8.2) g/dL Albumin 3.0 L (3.4-5.0) g/dL Globulin 3.6 Albumin/Globulin Ratio 0.83 Meds: Medications Generic Name Dose Route Start Last Admin Trade Name Freq PRN Reason Stop Dose Admin Sodium Chloride 10 ml 10/31/19 18:24 10/31/19 18:50 Saline Flush FLUSH 10 ml ASDIRECTED PRN Administration Keep Vein Open - Re-Assessments/Exams Free Text/Narrative Re-Assessment/Exam: 10/31/19 19:37 re-exam; standing BP 137/49 pt denies room spinning no CP but feels little light headed, denies SOB but states it's only when he moves around. 10/31/19 19:[address] Castelan @ who kindly accepted pt. Departure - Departure Time of Disposition: 19:59 Disposition: DC/Tfer to Acute Hospital 02 Condition: Good Clinical Impression: Bradycardia, Near syncope, Dyspnea on exertion Renal failure Qualifiers: Renal failure chronicity: unspecified chronicity Qualified Code(s): N19 - Unspecified kidney failure - Discharge Information Forms: Interfacility Transfer [facility] Sepsis Event Note - Evaluation Sepsis Screening Result: No Definite Risk - Focused Exam Vital Signs: Vital Signs Temp Pulse Resp BP Pulse Ox 10/31/19 17:51 35.9 C L 52 L 16 137/55 L 97 Date Exam was Performed: 10/31/19 Time Exam was Performed: 20:04
[2019-10-31 19:00] LABS: ANION GAP 15.2 mEq/L (7-13); CHLORIDE,CL 103 mmol/L (98-107); SODIUM,NA 142 mmol/L (136-145)
== END 2019-10-31 21:00 ==
LOC: DL.ED 17:40
DX: N19 Unspecified kidney failure (principal); R00.1 Bradycardia, unspecified; R55 Syncope and collapse; I48.91 Unspecified atrial fibrillation; I11.0 Hypertensive heart disease with heart failure; I50.9 Heart failure, unspecified; E11.9 Type 2 diabetes mellitus without complications; Z79.4 Long term (current) use of insulin; Z79.899 Other long term (current) drug therapy
CPT/HCPCS: 36415; 70450; 71045; 80053; 81001; 83880; 84484; 85025; 85610; 87086; 93005; 99285-25

== ENCOUNTER 2019-12-02 07:32 | Inpatient (IN) | payer MEDICARE ==
--- NOTE | 2019-12-02 07:33 | EDM.PDOC ---
ED HPI GENERAL MEDICAL PROBLEM - General Stated Complaint: AMBULANCE Time Seen by Provider: 12/02/19 07:25 Source of Information: Reports: Patient History Limitations: Reports: No Limitations - History of Present Illness INITIAL COMMENTS - FREE TEXT/NARRATIVE: This 79 yo male patient reports to the ED due to a 3 day history of urinary incontinence and generalized weakness. The patient reports he does have CKD and sees Dr. Knox. The patient reports he had a kidney stone about 2 weeks ago, had radiofrequency ablation and a stent placed. The patient reports he had the stent removed about 1 week ago. The patient denies any fever, chills or pains. Onset Date: 11/29/19 Duration: Constant Location: Reports: Other Quality: Reports: Other Severity: Moderate Improves with: Reports: None Worsens with: Reports: None Context: Reports: Other Associated Symptoms: Reports: Weakness - Related Data Allergies Allergy/AdvReac Type Severity Reaction Status Date / Time No Known Allergies Allergy Verified 10/31/19 18:02 Home Meds: Home Meds atorvaSTATin [Lipitor] 20 mg PO BEDTIME 10/29/16 [History] cloNIDine [Catapres] 0.2 mg PO BID 10/29/16 [History] Gabapentin [Neurontin] 100 mg PO BEDTIME 10/31/19 [History] Insulin Glarg,Human.Rec.Analog [Lantus] 26 units SQ BEDTIME 10/31/19 [History] Metoprolol Tartrate [Lopressor] 100 mg PO BID 10/31/19 [History] allopurinoL [Zyloprim] 100 mg PO BEDTIME 10/31/19 [History] calcitrioL [Calcitriol] 0.25 mcg PO DAILY 10/31/19 [History] hydrALAZINE [Apresoline] 100 mg PO TID 10/31/19 [History] Cyanocobalamin (Vitamin B-12) [Vitamin B-12] 1,000 mcg PO DAILY 12/02/19 [ History] Diltiazem [Dilacor XR] 120 mg PO DAILY 12/02/19 [History] Hydrocodone/Acetaminophen [[place] 5-325 Tablet] 1 tab PO Q8HR PRN 12/02/19 [ History] Isosorbide Mononitrate [Imdur] 30 mg PO DAILY 12/02/19 [History] Past Medical History HEENT History: Reports: None Cardiovascular History: Reports: Afib, Heart Failure, High Cholesterol, Hypertension Respiratory History: Reports: Pneumonia, Recurrent Genitourinary History: Reports: Acute Renal Failure Musculoskeletal History: Reports: Fracture Neurological History: Reports: None, Head Trauma Psychiatric History: Reports: None Endocrine/Metabolic History: Reports: Diabetes, Type II Hematologic History: Reports: None Immunologic History: Reports: None Oncologic (Cancer) History: Reports: Prostate Dermatologic History: Reports: None - Infectious Disease History Infectious Disease History: Reports: Chicken Pox - Past Surgical History Head Surgeries/Procedures: Reports: None HEENT Surgical History: Reports: None GI Surgical History: Reports: Appendectomy Social & Family History - Family History Family Medical History: Noncontributory - Tobacco Use Smoking Status *Q: Never Smoker - Caffeine Use Caffeine Use: Reports: None - Recreational Drug Use Recreational Drug Use: No ED ROS GENERAL - Review of Systems Review Of Systems: Comprehensive ROS is negative, except as noted in HPI. ED EXAM, RENAL/ - Physical Exam Exam: See Below Exam Limited By: No Limitations General Appearance: Alert, WD/WN, Moderate Distress Eye Exam: Bilateral Eye: EOMI, Normal Inspection, PERRL Ears: Normal External Exam, Normal Canal, Hearing Grossly Normal, Normal TMs Nose: Normal Inspection, Normal Mucosa, No Blood Throat/Mouth: Normal Inspection, Normal Lips, Normal Teeth, Normal Gums, Normal Oropharynx, Normal Voice, No Airway Compromise Head: Atraumatic, Normocephalic Neck: Normal Inspection, Supple, Non-Tender, Full Range of Motion Respiratory/Chest: No Respiratory Distress, Lungs Clear, Normal Breath Sounds, No Accessory Muscle Use, Chest Non-Tender Cardiovascular: Normal Peripheral Pulses, Regular Rate, Rhythm, No Edema, No Gallop, No JVD, No Murmur, No Rub GI/Abdominal: Normal Bowel Sounds, Soft, Non-Tender, No Organomegaly, No Distention, No Abnormal Bruit, No Mass (Male) Exam: Other Rectal (Males) Exam: Deferred Back Exam: Normal Inspection, Full Range of Motion, NT Extremities: Normal Inspection, Normal Range of Motion, Non-Tender, Normal Capillary Refill, No Pedal Edema Neurological: Alert, Oriented, CN II-XII Intact, Normal Cognition, Normal Gait, Normal Reflexes, No Motor/Sensory Deficits Psychiatric: Normal Affect, Normal Mood Skin Exam: Warm, Dry, Intact, Normal Color, No Rash Course - Vital Signs Last Recorded V/S: Last Vital Signs Temp 37.3 C 12/02/19 06:59 Pulse 76 12/02/19 06:59 Resp 15 12/02/19 06:59 BP 148/64 H 12/02/19 06:59 Pulse Ox 99 12/02/19 06:59 - Orders/Labs/Meds Orders: Active Orders 24 hr Category Date Time Status EKG Documentation Completion [RC] STAT Care 12/02/19 07:03 Active COMPREHENSIVE METABOLIC PN,CMP [CHEM] Stat Lab 12/02/19 07:10 Received CULTURE BLOOD [BC] Stat Lab 12/02/19 07:10 Received LACTIC ACID [CHEM] Stat Lab 12/02/19 07:10 Received TROPONIN I [CHEM] Stat Lab 12/02/19 07:10 Received UA RFX KATHY AND CULT IF INDIC [URIN] Urgent Lab 12/02/19 07:03 Ordered Labs: Laboratory Tests 12/02/19 Range/Units 07:10 WBC 11.9 H (5.0-10.0) 10^3/uL RBC 3.05 L (4.6-6.2) 10^6/uL Hgb 8.8 L (14.0-18.0) g/dL Hct 27.4 L (40.0-54.0) % MCV 89.8 D (80-100) fL MCH 28.9 (27.0-34.0) pg MCHC 32.1 L (33.0-35.0) g/dL Plt Count 156 D (150-450) 10^3/uL Neut % (Auto) 78.6 H (42.2-75.2) % Lymph % (Auto) 10.4 L (20.5-50.1) % [place] % (Auto) 10.3 H (2-8) % Eos % (Auto) 0.5 L (1.0-3.0) % Baso % (Auto) 0.2 (0.0-1.0) % Departure - Departure Time of Disposition: 09:05 Disposition: Admitted As Inpatient 66 Condition: Fair Clinical Impression: Generalized weakness UTI (urinary tract infection) Qualifiers: Urinary tract infection type: site unspecified Hematuria presence: with hematuria Qualified Code(s): N39.0 - Urinary tract infection, site not specified ; R31.9 - Hematuria, unspecified CKD (chronic kidney disease) Qualifiers: Chronic kidney disease stage: stage 3 (moderate) Qualified Code(s): N18.3 - Chronic kidney disease, stage 3 (moderate) - Discharge Information *PRESCRIPTION DRUG MONITORING PROGRAM REVIEWED*: Not Applicable *COPY OF PRESCRIPTION DRUG MONITORING REPORT IN PATIENT MARLENA: Not Applicable Care Plan Goals: Discussed the patient's history, examination, and lab results were discussed with Dr. Mak. Dr. Mak accepted the patient for continued evaluation and further management as an observation patient at [facility]. Sepsis Event Note - Evaluation Sepsis Screening Result: No Definite Risk - Focused Exam Vital Signs: Vital Signs Temp Pulse Resp BP Pulse Ox 12/02/19 06:59 37.3 C 76 15 148/64 H 99 Date Exam was Performed: 12/02/19 Time Exam was Performed: 07:47 - My Orders Last 24 Hours: My Active Orders 12/02/19 07:03 EKG Documentation Completion [RC] STAT UA RFX KATHY AND CULT IF INDIC [URIN] Urgent 12/02/19 07:10 COMPREHENSIVE METABOLIC PN,CMP [CHEM] Stat CULTURE BLOOD [BC] Stat LACTIC ACID [CHEM] Stat TROPONIN I [CHEM] Stat - Assessment/Plan Last 24 Hours: My Active Orders 12/02/19 07:03 EKG Documentation Completion [RC] STAT UA RFX KATHY AND CULT IF INDIC [URIN] Urgent 12/02/19 07:10 COMPREHENSIVE METABOLIC PN,CMP [CHEM] Stat CULTURE BLOOD [BC] Stat LACTIC ACID [CHEM] Stat TROPONIN I [CHEM] Stat
[2019-12-02 07:40] LABS: ANION GAP 15.4 mEq/L (7-13); CHLORIDE,CL 95 mmol/L (98-107); SODIUM,NA 136 mmol/L (136-145)
[2019-12-02] MEDS ORDERED: Acetaminophen 325 MG Tab PO PRN (09:41)
[2019-12-02] MEDS ORDERED: Ondansetron 4 MG/2 ML SDV IVPUSH PRN (09:41)
[2019-12-02] MEDS ORDERED: Ondansetron 4 MG Tab.DIS PO PRN (09:41)
[2019-12-02] MEDS ORDERED: Glucagon,Human Recombinant 1 MG Vial IM PRN (09:58)
[2019-12-02] MEDS ORDERED: 50% Dextrose in Water 50 ML Syringe IVPUSH PRN (09:58)
--- NOTE | 2019-12-02 10:16 | PCM.HP ---
H&P History of Present Illness - General Date of Service: 12/02/19 Admit Problem/Dx: Admission Diagnosis/Problem Admission Diagnosis/Problem UTI, Urinary tract infectious disease - History of Present Illness Initial Comments - Free Text/Narative: Patient is a 79-year-old male with medical history significant for CKD stage IV/ V, anemia of CKD, bilateral lower extremity edema, type 2 diabetes, hypertension , and history of prostate cancer status post treatment with Lupron and who follows with urology who presented to the ED with complaints of weakness and inability to perform his ADLs. Patient reports that he was his normal self until 3 days ago. States that he was able to drive 30 miles out of town [place]. Reports that on the same day, he was able to put up an air conditioner for his . Reports that later in the day, he fell while trying to get out of bed because he was very weak. Reports that he had to call paramedics to pick him up. Did not come to the ED then. Reports that he has been unable to make it to the bathroom and so has been having urinary incontinence. Also reports that he normally ambulates without assistive devices. He denies fevers, chills, nausea, vomiting, diarrhea, dysuria, hematuria, chest pain, shortness of breath, lightheadedness, vision changes, or any new symptoms. Reports that he has chronic constipation at baseline. In the ED, creatinine was 6.55. UA was positive for moderate leukocyte esterase with 40-50 WBC per high-power field and moderate bacteria. - Related Data Allergies/Adverse Reactions: Allergies Allergy/AdvReac Type Severity Reaction Status Date / Time No Known Allergies Allergy Verified 10/31/19 18:02 Home Medications: Home Meds atorvaSTATin [Lipitor] 20 mg PO BEDTIME 10/29/16 [History] cloNIDine [Catapres] 0.1 mg PO BID 10/29/16 [History] Gabapentin [Neurontin] 100 mg PO BEDTIME 10/31/19 [History] Insulin Glarg,Human.Rec.Analog [Lantus] 26 units SQ BEDTIME 10/31/19 [History] Metoprolol Tartrate [Lopressor] 100 mg PO BID 10/31/19 [History] allopurinoL [Zyloprim] 100 mg PO BEDTIME 10/31/19 [History] calcitrioL [Calcitriol] 0.25 mcg PO DAILY 10/31/19 [History] hydrALAZINE [Apresoline] 100 mg PO TID 10/31/19 [History] Cyanocobalamin (Vitamin B-12) [Vitamin B-12] 1,000 mcg PO DAILY 12/02/19 [ History] Diltiazem [Dilacor XR] 120 mg PO DAILY 12/02/19 [History] Hydrocodone/Acetaminophen [[place] 5-325 Tablet] 1 tab PO Q8HR PRN 12/02/19 [ History] Isosorbide Mononitrate [Imdur] 30 mg PO DAILY 12/02/19 [History] Past Medical History HEENT History: Reports: None Cardiovascular History: Reports: Afib, Heart Failure, High Cholesterol, Hypertension Respiratory History: Reports: None Gastrointestinal History: Reports: Chronic Constipation Genitourinary History: Reports: Acute Renal Failure, Prostate Disorder Musculoskeletal History: Reports: Fracture Neurological History: Reports: None Psychiatric History: Reports: None Endocrine/Metabolic History: Reports: Diabetes, Type II, Obesity/BMI 30+ Hematologic History: Reports: None Immunologic History: Reports: None Oncologic (Cancer) History: Reports: Prostate Other Oncologic History: injections every 6 months Dermatologic History: Reports: None - Infectious Disease History Infectious Disease History: Reports: None - Past Surgical History Head Surgeries/Procedures: Reports: None HEENT Surgical History: Reports: None Cardiovascular Surgical History: Reports: None GI Surgical History: Reports: Appendectomy, Colonoscopy Endocrine Surgical History: Reports: None Musculoskeletal Surgical History: Reports: None Oncologic Surgical History: Reports: None Social & Family History - Family History Family Medical History: Noncontributory - Tobacco Use Smoking Status *Q: Never Smoker Second Hand Smoke Exposure: No - Caffeine Use Caffeine Use: Reports: Coffee - Recreational Drug Use Recreational Drug Use: No H&P Review of Systems - Review of Systems: Review Of Systems: Comprehensive ROS is negative, except as noted in HPI. Exam - Exam Exam: See Below - Vital Signs Vital Signs: Last Vital Signs Temp 99.2 F 12/02/19 06:59 Pulse 76 12/02/19 06:59 Resp 15 12/02/19 06:59 BP 148/64 H 12/02/19 06:59 Pulse Ox 99 12/02/19 06:59 Weight: 199 lb 6 oz - Exam General: Alert, Cooperative, Other (appears weak) HEENT: Conjunctiva Clear, EOMI, Other (Hard of hearing) Neck: Supple, Trachea Midline Lungs: Clear to Auscultation, Normal Respiratory Effort Cardiovascular: Regular Rate, Regular Rhythm, Normal S1, Normal S2 GI/Abdominal Exam: Normal Bowel Sounds, Soft, Non-Tender, No Distention Extremities: Pedal Edema (Trace BLE edema.) Skin: Warm, Dry, Intact Neuro Extensive - Mental Status: Alert, Oriented x3, Normal Mood/Affect, Normal Cognition, Memory Intact Psychiatric: Alert, Normal Affect, Normal Mood - Patient Data Lab Results Last 24 hrs: Laboratory Results - last 24 hr 12/02/19 12/02/19 12/02/19 Range/Units 07:10 07:10 07:10 WBC 11.9 H (5.0-10.0) 10^3/uL RBC 3.05 L (4.6-6.2) 10^6/uL Hgb 8.8 L (14.0-18.0) g/dL Hct 27.4 L (40.0-54.0) % MCV 89.8 D (80-100) fL MCH 28.9 (27.0-34.0) pg MCHC 32.1 L (33.0-35.0) g/dL Plt Count 156 D (150-450) 10^3/uL Neut % (Auto) 78.6 H (42.2-75.2) % Lymph % (Auto) 10.4 L (20.5-50.1) % [place] % (Auto) 10.3 H (2-8) % Eos % (Auto) 0.5 L (1.0-3.0) % Baso % (Auto) 0.2 (0.0-1.0) % Sodium 136 (136-145) mmol/L Potassium 3.4 L (3.5-5.1) mmol/L Chloride 95 L (98-107) mmol/L Carbon Dioxide 29 (21-32) mmol/L Anion Gap 15.4 H (7-13) mEq/L BUN 85 H (7-18) mg/dL Creatinine 6.55 H* (0.70-1.30) mg/dL Est Cr Clr Drug Dosing 9.14 mL/min Estimated GFR (MDRD) 8 BUN/Creatinine Ratio 13.0 (No establ ref range) Glucose 156 H (74-99) mg/dL Lactic Acid 0.7 (0.4-2.0) mmol/L Calcium 8.3 L (8.5-10.1) mg/dL Total Bilirubin 0.7 (0.2-1.0) mg/dL AST 16 (15-37) U/L ALT 17 (16-63) U/L Alkaline Phosphatase 74 (46-116) U/L Troponin I < 0.017 (0.000-0.056) ng/mL Total Protein 6.6 (6.4-8.2) g/dL Albumin 3.0 L (3.4-5.0) g/dL Globulin 3.6 Albumin/Globulin Ratio 0.83 Urine Color (YELLOW) Urine Appearance (CLEAR) Urine pH (5.0-9.0) Ur Specific [place] (1.005-1.030) Urine Protein (NEGATIVE) Urine Glucose (UA) (NEGATIVE) Urine Ketones (NEGATIVE) Urine Occult Blood (NEGATIVE) Urine Nitrite (NEGATIVE) Urine Bilirubin (NEGATIVE) Urine Urobilinogen (0.2-1.0) mg/dL Ur Leukocyte Esterase (NEGATIVE) Urine RBC /HPF Urine WBC (0-5/HPF) /HPF Ur Epithelial Cells (NOT SEEN) /HPF Urine Bacteria (0-FEW/HPF) /HPF Urine Mucus (NOT SEEN) /LPF 12/02/19 Range/Units 08:32 WBC (5.0-10.0) 10^3/uL RBC (4.6-6.2) 10^6/uL Hgb (14.0-18.0) g/dL Hct (40.0-54.0) % MCV (80-100) fL MCH (27.0-34.0) pg MCHC (33.0-35.0) g/dL Plt Count (150-450) 10^3/uL Neut % (Auto) (42.2-75.2) % Lymph % (Auto) (20.5-50.1) % [place] % (Auto) (2-8) % Eos % (Auto) (1.0-3.0) % Baso % (Auto) (0.0-1.0) % Sodium (136-145) mmol/L Potassium (3.5-5.1) mmol/L Chloride (98-107) mmol/L Carbon Dioxide (21-32) mmol/L Anion Gap (7-13) mEq/L BUN (7-18) mg/dL Creatinine (0.70-1.30) mg/dL Est Cr Clr Drug Dosing mL/min Estimated GFR (MDRD) BUN/Creatinine Ratio (No establ ref range) Glucose (74-99) mg/dL Lactic Acid (0.4-2.0) mmol/L Calcium (8.5-10.1) mg/dL Total Bilirubin (0.2-1.0) mg/dL AST (15-37) U/L ALT (16-63) U/L Alkaline Phosphatase (46-116) U/L Troponin I (0.000-0.056) ng/mL Total Protein (6.4-8.2) g/dL Albumin (3.4-5.0) g/dL Globulin Albumin/Globulin Ratio Urine Color Yellow (YELLOW) Urine Appearance Slightly cloudy (CLEAR) Urine pH 6.0 (5.0-9.0) Ur Specific [place] 1.015 (1.005-1.030) Urine Protein 30 H (NEGATIVE) Urine Glucose (UA) Negative (NEGATIVE) Urine Ketones Negative (NEGATIVE) Urine Occult Blood Trace-intact H (NEGATIVE) Urine Nitrite Negative (NEGATIVE) Urine Bilirubin Negative (NEGATIVE) Urine Urobilinogen 0.2 (0.2-1.0) mg/dL Ur Leukocyte Esterase Moderate H (NEGATIVE) Urine RBC 0-5 /HPF Urine WBC 40-50 H (0-5/HPF) /HPF Ur Epithelial Cells Rare (NOT SEEN) /HPF Urine Bacteria Moderate H (0-FEW/HPF) /HPF Urine Mucus Not seen (NOT SEEN) /LPF Result Diagrams: 12/02/19 07:10 12/02/19 07:10 - Problem List (1) Fall SNOMED Code(s): 4110810, 708458831 ICD Code: W19.XXXA - UNSPECIFIED FALL, INITIAL ENCOUNTER Status: Acute Current Visit: Yes (2) Acute on chronic kidney failure SNOMED Code(s): 185352531 ICD Code: N17.9 - ACUTE KIDNEY FAILURE, UNSPECIFIED; N18.9 - CHRONIC KIDNEY DISEASE, UNSPECIFIED Status: Acute Current Visit: Yes (3) CKD (chronic kidney disease) SNOMED Code(s): 144553555 ICD Code: N18.9 - CHRONIC KIDNEY DISEASE, UNSPECIFIED Status: Acute Current Visit: No Qualifiers: Chronic kidney disease stage: stage 3 (moderate) Qualified Code(s): N18.3 - Chronic kidney disease, stage 3 (moderate) (4) Congestive heart failure SNOMED Code(s): 78996463 ICD Code: I50.9 - HEART FAILURE, UNSPECIFIED Status: Acute Current Visit : No Qualifiers: Qualified Code(s): I50.9 - Heart failure, unspecified (5) Generalized weakness SNOMED Code(s): 86962159 ICD Code: R53.1 - WEAKNESS Status: Acute Current Visit: No (6) UTI (urinary tract infection) SNOMED Code(s): 20818787 ICD Code: N39.0 - URINARY TRACT INFECTION, SITE NOT SPECIFIED Status: Acute Current Visit: No Qualifiers: Urinary tract infection type: site unspecified Hematuria presence: with hematuria Qualified Code(s): N39.0 - Urinary tract infection, site not specified; R31.9 - Hematuria, unspecified (7) Essential hypertension SNOMED Code(s): 04264082 ICD Code: I10 - ESSENTIAL (PRIMARY) HYPERTENSION Status: Chronic Current Visit: No (8) History of atrial fibrillation SNOMED Code(s): 219704679 ICD Code: Z86.79 - PERSONAL HISTORY OF OTHER DISEASES OF THE CIRCULATORY SYSTEM Status: Chronic Current Visit: No Problem List Initiated/Reviewed/Updated: Yes Orders Last 24hrs: Active Orders 24 hr Category Date Time Status Admission Diagnosis [ADT] Urgent ADT 12/02/19 09:05 Ordered Admission Status [Patient Status] [ADT] Routine ADT 12/02/19 09:05 Active Blood Glucose Check, Bedside [RC] WITHMEALSANDBED Care 12/02/19 09:41 Active Diabetes Education [RC] Click to Edit Care 12/02/19 09:58 Active Intake and Output [RC] QSHIFT Care 12/02/19 09:42 Active Notify Provider [RC] PRN Care 12/02/19 09:58 Active Oxygen Therapy [RC] PRN Care 12/02/19 09:41 Active VTE/DVT Education [RC] PER UNIT ROUTINE Care 12/02/19 09:41 Active Vital Signs [RC] Q4H Care 12/02/19 09:41 Active OT Evaluation and Treatment [CONS] Routine Cons 12/02/19 09:41 Active PT Evaluation and Treatment [CONS] Routine Cons 12/02/19 09:41 Active Consistent Carbohydrate Diet [DIET] Diet 12/02/19 Breakfast Active BASIC METABOLIC PANEL,BMP [CHEM] AM Lab 12/03/19 05:11 Ordered CBC W/O DIFF,HEMOGRAM [HEME] AM Lab 12/03/19 05:11 Ordered CULTURE BLOOD [BC] Stat Lab 12/02/19 07:10 Received CULTURE URINE [RM] Urgent Lab 12/02/19 08:32 Received Acetaminophen [Tylenol] Med 12/02/19 09:41 Active 650 mg PO Q6H PRN Dextrose 50% in Water Med 12/02/19 09:58 Active 25 ml IVPUSH ASDIRECTED PRN Glucagon,Human Recombinant [GlucaGen] Med 12/02/19 09:58 Active 1 mg IM ONETIME PRN Heparin Sodium Med 12/02/19 14:00 Active 5,000 units SUBCUT Q8HR Insulin Glarg,Human.Rec.Analog [LantUS] Med 12/02/19 21:00 Active 21 unit SUBCUT BEDTIME Insulin Lispro [HumaLOG] Med 12/02/19 12:00 Active See Protocol SUBCUT WITHMEALSANDBED Ondansetron [Zofran ODT] Med 12/02/19 09:41 Active 4 mg PO Q6H PRN Ondansetron [Zofran] Med 12/02/19 09:41 Active 4 mg IVPUSH Q6H PRN cefTRIAXone [Rocephin] 1 gm Med 12/02/19 10:00 Active Sodium Chloride 0.9% [Normal Saline] 50 ml IV Q24H Resuscitation Status Routine Resus Stat 12/02/19 09:41 Ordered Medication Orders Acetaminophen (Tylenol) 650 mg PO Q6H PRN PRN Reason: Pain (Mild 1-3)/fever Dextrose/Water (Dextrose 50% In Water) 25 ml IVPUSH ASDIRECTED PRN PRN Reason: Hypoglycemia Glucagon (Glucagen) 1 mg IM ONETIME PRN PRN Reason: Hypoglycemia Heparin Sodium (Porcine) (Heparin Sodium) 5,000 units SUBCUT Q8HR [facility] Ceftriaxone Sodium 1 gm/ (Sodium Chloride) 50 mls @ 100 mls/hr IV Q24H [facility] Insulin Glargine (Lantus) 21 unit SUBCUT BEDTIME [facility] Insulin Human Lispro (Humalog) 0 unit SUBCUT WITHMEALSANDBED [facility]; Protocol Ondansetron HCl (Zofran Odt) 4 mg PO Q6H PRN PRN Reason: nausea, able to take PO Ondansetron HCl (Zofran) 4 mg IVPUSH Q6H PRN PRN Reason: Nausea/Vomiting Assessment/Plan Comment:: #Urinary tract infection: Patient presented with urinary incontinence. In the context of weakness. Found to have UA positive for leukocytes and urine microscopy positive for WBCs and bacteria. Start Rocephin Follow-up on urine cultures Follow-up on blood cultures #Weakness #Falls Likely secondary to urinary tract infection Continue Rocephin PT and OT Fall precautions #MARLEEN on CKD stage IV/V Patient with creatinine of 6.55, Creatinine was 5.7 on 11/26/2019 Gentle fluid resuscitation If creatinine is not improving, will need to be transferred to for nephrology evaluation #Type 2 diabetes: Continue Lantus Sliding scale insulin and hypoglycemia protocol #Diastolic heart failure: Patient with grade 2 diastolic dysfunction on echocardiogram from 11/04/2019 Gentle fluids substation Avoid volume overload Continue home meds History of atrial fibrillation Heart rate is at goal Continue Cardizem History of CAD Continue home medications #DVT prophylaxis: Heparin #GI prophylaxis: Diabetic diet Status: DNR/DNI per patient preference
[2019-12-02] MEDS: cefTRIAXone 1 GM in Sodium Chloride 0.9% 50 ML IV SCH (10:25)
[2019-12-02] MEDS ORDERED: Sodium Chloride 0.9% 1,000 ML IV SCH (10:30)
[2019-12-02] MEDS: Insulin Lispro 100 Units/ML 3 ML Vial SUBCUT SCH ×3 (12:46→21:01)
[2019-12-02] MEDS: Heparin Sodium 5,000 Units/ML Vial SUBCUT SCH ×3 (12:46→21:02)
[2019-12-02] MEDS ORDERED: Insulin Glarg,Human.Rec.Analog 100 Unit/ML SUBCUT SCH (21:00)
[2019-12-03] MEDS: Heparin Sodium 5,000 Units/ML Vial SUBCUT SCH ×3 (05:51→21:13)
[2019-12-03 06:21] LABS: ANION GAP 13.6 mEq/L (7-13)
[2019-12-03] MEDS ORDERED: hydrALAZINE 25 MG Tab PO SCH (09:07)
[2019-12-03] MEDS ORDERED: Acetaminophen/HYDROcodone 325-5 MG Tab PO PRN (09:07)
[2019-12-03] MEDS: Insulin Lispro 100 Units/ML 3 ML Vial SUBCUT SCH ×4 (09:14→21:09)
[2019-12-03] MEDS ORDERED: Metoprolol Tartrate 50 MG Tab PO SCH (09:15)
[2019-12-03] MEDS ORDERED: cloNIDine 0.1 MG Tab PO SCH (09:15)
--- NOTE | 2019-12-03 10:01 | PCM.PN ---
- General Info Date of Service: 12/03/19 Subjective Update: feeling stronger mod to severe weakness has started prior to admission has been up with pt/ot no cp, no sob IVF has finished since yesterday incontinent to urine Functional Status: Reports: Pain Controlled, Tolerating Diet - Review of Systems General: Reports: Weakness. Denies: Fever, Chills Pulmonary: Denies: Shortness of Breath Cardiovascular: Denies: Chest Pain, Edema Neurological: Denies: Confusion - Patient Data Vitals - Most Recent: Last Vital Signs Temp 99.0 F 12/03/19 08:00 Pulse 93 12/03/19 08:00 Resp 18 12/03/19 08:00 BP 154/57 H 12/03/19 08:00 Pulse Ox 94 L 12/03/19 08:00 Weight - Most Recent: 200 lb 8 oz I&O - Last 24 Hours: Intake & Output 12/02/19 12/03/19 12/03/19 22:59 06:59 14:59 Intake Total 991 Output Total 450 Balance 541 Lab Results Last 24 Hours: Laboratory Results - last 24 hr 12/02/19 12/02/19 12/02/19 Range/Units 11:56 16:47 20:30 WBC (5.0-10.0) 10^3/uL RBC (4.6-6.2) 10^6/uL Hgb (14.0-18.0) g/dL Hct (40.0-54.0) % MCV (80-100) fL MCH (27.0-34.0) pg MCHC (33.0-35.0) g/dL Plt Count (150-450) 10^3/uL Sodium (136-145) mmol/L Potassium (3.5-5.1) mmol/L Chloride (98-107) mmol/L Carbon Dioxide (21-32) mmol/L Anion Gap (7-13) mEq/L BUN (7-18) mg/dL Creatinine (0.70-1.30) mg/dL Est Cr Clr Drug Dosing mL/min Estimated GFR (MDRD) Glucose (74-99) mg/dL POC Glucose 254 H 164 H 261 H (83-110) mg/dl Calcium (8.5-10.1) mg/dL 12/03/19 12/03/19 Range/Units 05:50 05:50 WBC 9.2 (5.0-10.0) 10^3/uL RBC 3.08 L (4.6-6.2) 10^6/uL Hgb 8.7 L (14.0-18.0) g/dL Hct 27.4 L (40.0-54.0) % MCV 89.0 (80-100) fL MCH 28.2 (27.0-34.0) pg MCHC 31.8 L (33.0-35.0) g/dL Plt Count 159 (150-450) 10^3/uL Sodium 141 (136-145) mmol/L Potassium 2.6 L (3.5-5.1) mmol/L Chloride 102 (98-107) mmol/L Carbon Dioxide 28 (21-32) mmol/L Anion Gap 13.6 H (7-13) mEq/L BUN 78 H (7-18) mg/dL Creatinine 5.36 H* (0.70-1.30) mg/dL Est Cr Clr Drug Dosing 10.81 mL/min Estimated GFR (MDRD) 10 Glucose 154 H (74-99) mg/dL POC Glucose (83-110) mg/dl Calcium 7.8 L (8.5-10.1) mg/dL David Results Last 24 Hours: Microbiology 12/02/19 07:10 Aerobic Blood Culture - Preliminary Blood Anaerobic Blood Culture - Preliminary NO GROWTH AFTER 1 DAY 12/02/19 08:32 Urine Culture - Preliminary Urine, Voided Med Orders - Current: Current Medications Acetaminophen (Tylenol) 650 mg PO Q6H PRN PRN Reason: Pain (Mild 1-3)/fever Last Admin: 12/02/19 21:02 Dose: 650 mg Hydrocodone Bitart/Acetaminophen ([place] 325-5 Mg) 1 tab PO Q8HR PRN PRN Reason: Pain Allopurinol (Zyloprim) 100 mg PO BEDTIME [facility] Atorvastatin Calcium (Lipitor) 20 mg PO BEDTIME [facility] Calcitriol (Rocaltrol) 0.25 mcg PO DAILY [facility] Clonidine HCl (Catapres) 0.1 mg PO BID [facility] Cyanocobalamin (Vitamin B12) 1,000 mcg PO DAILY [facility] Dextrose/Water (Dextrose 50% In Water) 25 ml IVPUSH ASDIRECTED PRN PRN Reason: Hypoglycemia Diltiazem HCl (Cardizem Cd) 120 mg PO DAILY [facility] Gabapentin (Neurontin) 300 mg PO BEDTIME [facility] Glucagon (Glucagen) 1 mg IM ONETIME PRN PRN Reason: Hypoglycemia Heparin Sodium (Porcine) (Heparin Sodium) 5,000 units SUBCUT Q8HR [facility] Last Admin: 12/03/19 05:51 Dose: 5,000 units Hydralazine HCl (Apresoline) 100 mg PO TID [facility] Ceftriaxone Sodium 1 gm/ (Sodium Chloride) 50 mls @ 100 mls/hr IV Q24H [facility] Last Admin: 12/02/19 10:25 Dose: 100 mls/hr Potassium Chloride 10 meq/ (Premix) 100 mls @ 50 mls/hr IV Q2H [facility] Stop: 12/03/19 13:59 Insulin Glargine (Lantus) 21 unit SUBCUT BEDTIME [facility] Last Admin: 12/02/19 21:01 Dose: 21 unit Insulin Glargine (Lantus) 26 unit SUBCUT BEDTIME [facility] Insulin Human Lispro (Humalog) 0 unit SUBCUT WITHMEALSANDBED [facility]; Protocol Last Admin: 12/03/19 09:14 Dose: 2 units Isosorbide Mononitrate (Imdur) 30 mg PO DAILY [facility] Metoprolol Tartrate (Lopressor) 100 mg PO BID [facility] Ondansetron HCl (Zofran Odt) 4 mg PO Q6H PRN PRN Reason: nausea, able to take PO Ondansetron HCl (Zofran) 4 mg IVPUSH Q6H PRN PRN Reason: Nausea/Vomiting Potassium Chloride (Klor-Con 10) 20 meq PO ONETIME ONE Stop: 12/03/19 16:01 Sodium Chloride (Saline Flush) 10 ml FLUSH ASDIRECTED PRN PRN Reason: Keep Vein Open Discontinued Medications Gabapentin (Neurontin) 100 mg PO BEDTIME [facility] Sodium Chloride (Normal Saline) 1,000 mls @ 75 mls/hr IV ASDIRECTED [facility] Stop: 12/02/19 23:31 Last Admin: 12/02/19 11:54 Dose: 75 mls/hr - Exam Quality Assessment: No: Supplemental Oxygen General: Alert, Oriented Neck: Supple Lungs: Clear to Auscultation, Normal Respiratory Effort Cardiovascular: Regular Rate, Regular Rhythm GI/Abdominal Exam: Normal Bowel Sounds, Soft, Non-Tender Extremities: No Pedal Edema Sepsis Event Note - Evaluation Sepsis Screening Result: No Definite Risk - Focused Exam Vital Signs: Vital Signs Temp Pulse Resp BP Pulse Ox 12/03/19 08:00 99.0 F 93 18 154/57 H 94 L 12/03/19 02:13 97.3 F 79 18 157/59 H 95 12/02/19 22:09 97.8 F Date Exam was Performed: 12/03/19 Time Exam was Performed: 09:55 - Problem List & Annotations (1) Bacteremia SNOMED Code(s): 8306421 Code(s): R78.81 - BACTEREMIA Status: Acute Current Visit: Yes (2) Acute on chronic kidney failure SNOMED Code(s): 453137349 Code(s): N17.9 - ACUTE KIDNEY FAILURE, UNSPECIFIED; N18.9 - CHRONIC KIDNEY DISEASE, UNSPECIFIED Status: Acute Current Visit: Yes (3) CKD (chronic kidney disease) SNOMED Code(s): 765891465 Code(s): N18.9 - CHRONIC KIDNEY DISEASE, UNSPECIFIED Status: Acute Current Visit: No Qualifiers: Chronic kidney disease stage: stage 3 (moderate) Qualified Code(s): N18.3 - Chronic kidney disease, stage 3 (moderate) (4) Congestive heart failure SNOMED Code(s): 11360629 Code(s): I50.9 - HEART FAILURE, UNSPECIFIED Status: Acute Current Visit: No Qualifiers: Qualified Code(s): I50.9 - Heart failure, unspecified (5) UTI (urinary tract infection) SNOMED Code(s): 19273302 Code(s): N39.0 - URINARY TRACT INFECTION, SITE NOT SPECIFIED Status: Acute Current Visit: No Qualifiers: Urinary tract infection type: site unspecified Hematuria presence: with hematuria Qualified Code(s): N39.0 - Urinary tract infection, site not specified; R31.9 - Hematuria, unspecified (6) Essential hypertension SNOMED Code(s): 81969377 Code(s): I10 - ESSENTIAL (PRIMARY) HYPERTENSION Status: Chronic Current Visit: No (7) History of atrial fibrillation SNOMED Code(s): 638507834 Code(s): Z86.79 - PERSONAL HISTORY OF OTHER DISEASES OF THE CIRCULATORY SYSTEM Status: Chronic Current Visit: No - Problem List Review Problem List Initiated/Reviewed/Updated: Yes - My Orders Last 24 Hours: My Active Orders 12/02/19 22:51 Sodium Chloride 0.9% [Saline Flush] 10 ml FLUSH ASDIRECTED PRN Saline Lock Insert [OM.PC] Routine 12/03/19 09:01 Admission Status [Patient Status] [ADT] Routine 12/03/19 09:07 Acetaminophen/HYDROcodone [[place] 325-5 MG] 1 tab PO Q8HR PRN hydrALAZINE [Apresoline] 100 mg PO TID 12/03/19 09:15 Cyanocobalamin (Vitamin B12) [Vitamin B12] 1,000 mcg PO DAILY Diltiazem [Cardizem CD] 120 mg PO DAILY Isosorbide Mononitrate [Imdur] 30 mg PO DAILY Metoprolol Tartrate [Lopressor] 100 mg PO BID calcitrioL [Rocaltrol] 0.25 mcg PO DAILY cloNIDine [Catapres] 0.1 mg PO BID 12/03/19 10:00 Pharmacy to Dose - Vancomycin 1 dose .XX ASDIRECTED Potassium Chloride [KCl 10 MEQ in Water 100 ML] 10 meq Premix Bag 1 bag IV Q2H 12/03/19 16:00 Potassium Chloride [Klor-Con 10] 20 meq PO ONETIME ONE 12/03/19 21:00 Gabapentin [Neurontin] 300 mg PO BEDTIME Insulin Glarg,Human.Rec.Analog [LantUS] 26 unit SUBCUT BEDTIME allopurinoL [Zyloprim] 100 mg PO BEDTIME atorvaSTATin [Lipitor] 20 mg PO BEDTIME 12/04/19 05:15 BASIC METABOLIC PANEL,BMP [CHEM] AM CBC WITH AUTO DIFF [HEME] AM - Plan Plan:: #Urinary tract infection: Patient presented with urinary incontinence. In the context of weakness. Found to have UA positive for leukocytes and urine microscopy positive for WBCs and bacteria. Ucx: coag neg likely contaminant Started Rocephin #bacteremia, gram positive I&D pending will add vanc repeat BC today #Weakness #Falls Likely secondary to urinary tract infection/bacteremia PT and OT Fall precautions #MARLEEN on CKD stage IV/V on admission creatinine of 6.55, Creatinine was 5.7 on 11/26/2019 finished Gentle fluid resuscitation follow with vanc #severe hypokalemia replace with IV and PO supplement recheck in AM #Type 2 diabetes: Continue Lantus Sliding scale insulin and hypoglycemia protocol #chronic Diastolic heart failure: Patient with grade 2 diastolic dysfunction on echocardiogram from 11/04/2019 Avoid volume overload #History of atrial fibrillation Heart rate is at goal Continue Cardizem not on anticoagulation #History of CAD cont asa cardizem for rate control #DVT prophylaxis: Heparin #GI prophylaxis: Diabetic diet Status: DNR/DNI per patient preference d/w dr. Perry
[2019-12-03] MEDS: Metoprolol Tartrate 50 MG Tab PO SCH ×2 (10:45→21:14)
[2019-12-03] MEDS: Calcitriol 0.25 MCG Cap PO SCH (10:45)
[2019-12-03] MEDS: Isosorbide Mononitrate 30 MG Tab.ER PO SCH (10:45)
[2019-12-03] MEDS: Aspirin 81 MG Tab.Chew PO SCH (10:45)
[2019-12-03] MEDS: Cyanocobalamin (Vitamin B12) 1,000 MCG Tab PO SCH (10:45)
[2019-12-03] MEDS: amLODIPine 5 MG Tab PO SCH (10:46)
[2019-12-03] MEDS: hydrALAZINE 25 MG Tab PO SCH ×3 (10:46→21:15)
[2019-12-03] MEDS: Diltiazem 120 MG Cap.CD PO SCH (10:46)
[2019-12-03] MEDS: cloNIDine 0.1 MG Tab PO SCH ×3 (10:47→21:15)
[2019-12-03] MEDS: cefTRIAXone 1 GM in Sodium Chloride 0.9% 50 ML IV SCH (10:47)
[2019-12-03] MEDS: Potassium Chloride 10 MEQ in Premix Bag 1 BAG IV SCH ×2 (11:39→14:26)
[2019-12-03] MEDS ORDERED: Potassium Chloride 10 MEQ Tab.ER PO ONE (16:00)
[2019-12-03] MEDS ORDERED: Gabapentin 100 MG Cap PO SCH (21:00)
[2019-12-03] MEDS ORDERED: Gabapentin 300 MG Cap PO SCH (21:00)
[2019-12-03] MEDS: Insulin Glarg,Human.Rec.Analog 100 Unit/ML SUBCUT SCH (21:11)
[2019-12-03] MEDS: Allopurinol 100 MG Tab PO SCH (21:16)
[2019-12-03] MEDS: atorvaSTATin 20 MG Tab PO SCH (21:16)
[2019-12-03] MEDS: Sodium Chloride 0.9% 10 ML Syringe FLUSH PRN (21:16)
[2019-12-03] MEDS: Gabapentin 100 MG Cap PO SCH (21:16)
[2019-12-04] MEDS: Heparin Sodium 5,000 Units/ML Vial SUBCUT SCH ×3 (05:53→21:04)
[2019-12-04] MEDS: amLODIPine 5 MG Tab PO SCH (09:25)
[2019-12-04] MEDS: Cyanocobalamin (Vitamin B12) 1,000 MCG Tab PO SCH (09:26)
[2019-12-04] MEDS: Diltiazem 120 MG Cap.CD PO SCH (09:26)
[2019-12-04] MEDS: hydrALAZINE 25 MG Tab PO SCH ×3 (09:27→20:54)
[2019-12-04] MEDS: Calcitriol 0.25 MCG Cap PO SCH (09:28)
[2019-12-04] MEDS: Metoprolol Tartrate 50 MG Tab PO SCH ×2 (09:28→20:55)
[2019-12-04] MEDS: Aspirin 81 MG Tab.Chew PO SCH (09:29)
[2019-12-04] MEDS: cloNIDine 0.1 MG Tab PO SCH ×3 (09:30→20:55)
[2019-12-04] MEDS: Isosorbide Mononitrate 30 MG Tab.ER PO SCH (09:31)
[2019-12-04] MEDS: Insulin Lispro 100 Units/ML 3 ML Vial SUBCUT SCH ×4 (09:33→20:56)
[2019-12-04] MEDS ORDERED: Potassium Chloride 10 MEQ Tab.ER PO ONE (09:33)
--- NOTE | 2019-12-04 09:52 | PCM.DCSUM1 ---
Discharge Summary - Hospital Course Free Text/Narrative:: Presented with weakness #Urinary tract infection: Patient presented with urinary incontinence. In the context of weakness. Found to have UA positive for leukocytes and urine microscopy positive for WBCs and bacteria. Ucx: staph epi likely contaminant Started Rocephin - finish few days of Keflex - adjusted dose to renal fx. #bacteremia, - coag neg staph - likely contaminant repeat bc: pending hold off on Abx for now #Weakness #Falls Likely secondary to urinary tract infection PT and OT rec. 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 on admission creatinine of 6.55, Creatinine was 5.7 on 11/26/2019 improved with Gentle fluid resuscitation follow with PMD #severe hypokalemia replace with IV and PO supplement recheck in periodically #Type 2 diabetes: Continue Lantus #chronic Diastolic heart failure: Patient with grade 2 diastolic dysfunction on echocardiogram from 11/04/2019 Avoid volume overload #History of atrial fibrillation Heart rate is at goal Continue Cardizem not on anticoagulation #History of CAD cont asa cardizem for rate control Diagnosis: Stroke: No - Discharge Data Discharge Date: 12/04/19 Discharge Disposition: Home, Self-Care 01 Condition: Good - Referral to Home Health Primary Care Physician: Darrin Bolton MD - Discharge Diagnosis/Problem(s) (1) Bacteremia SNOMED Code(s): 9484979 ICD Code: R78.81 - BACTEREMIA Status: Ruled-out Current Visit: Yes (2) Acute on chronic kidney failure SNOMED Code(s): 958375960 ICD Code: N17.9 - ACUTE KIDNEY FAILURE, UNSPECIFIED; N18.9 - CHRONIC KIDNEY DISEASE, UNSPECIFIED Status: Acute Current Visit: Yes (3) CKD (chronic kidney disease) SNOMED Code(s): 599202533 ICD Code: N18.9 - CHRONIC KIDNEY DISEASE, UNSPECIFIED Status: Acute Current Visit: No Qualifiers: Chronic kidney disease stage: stage 3 (moderate) Qualified Code(s): N18.3 - Chronic kidney disease, stage 3 (moderate) (4) Congestive heart failure SNOMED Code(s): 83328216 ICD Code: I50.9 - HEART FAILURE, UNSPECIFIED Status: Acute Current Visit : No Qualifiers: Qualified Code(s): I50.9 - Heart failure, unspecified (5) UTI (urinary tract infection) SNOMED Code(s): 34072793 ICD Code: N39.0 - URINARY TRACT INFECTION, SITE NOT SPECIFIED Status: Acute Current Visit: No Qualifiers: Urinary tract infection type: site unspecified Hematuria presence: with hematuria Qualified Code(s): N39.0 - Urinary tract infection, site not specified; R31.9 - Hematuria, unspecified (6) Essential hypertension SNOMED Code(s): 80778376 ICD Code: I10 - ESSENTIAL (PRIMARY) HYPERTENSION Status: Chronic Current Visit: No (7) History of atrial fibrillation SNOMED Code(s): 392765284 ICD Code: Z86.79 - PERSONAL HISTORY OF OTHER DISEASES OF THE CIRCULATORY SYSTEM Status: Chronic Current Visit: No - Patient Summary/Data Consults: Consultations 12/02/19 09:41 OT Evaluation and Treatment [CONS] Routine PT Evaluation and Treatment [CONS] Routine - Patient Instructions Diet: Heart Healthy Diet Activity: As Tolerated - Discharge Plan *PRESCRIPTION DRUG MONITORING PROGRAM REVIEWED*: Not Applicable *COPY OF PRESCRIPTION DRUG MONITORING REPORT IN PATIENT MARLENA: Not Applicable Prescriptions/Med Rec: Aspirin 81 mg PO WITHBREAKFAST #30 tab.chew cephALEXin [Keflex] 250 mg PO BID #10 cap Home Medications: Home Meds atorvaSTATin [Lipitor] 20 mg PO BEDTIME 10/29/16 [History] Insulin Glarg,Human.Rec.Analog [Lantus] 26 units SQ BEDTIME 10/31/19 [History] Metoprolol Tartrate [Lopressor] 150 mg PO BID 10/31/19 [History] allopurinoL [Zyloprim] 100 mg PO BEDTIME 10/31/19 [History] calcitrioL [Calcitriol] 0.25 mcg PO DAILY 10/31/19 [History] Cyanocobalamin (Vitamin B-12) [Vitamin B-12] 1,000 mcg PO DAILY 12/02/19 [ History] Diltiazem [Dilacor XR] 120 mg PO DAILY 12/02/19 [History] Hydrocodone/Acetaminophen [[place] 5-325 Tablet] 1 tab PO Q8HR PRN 12/02/19 [ History] Isosorbide Mononitrate [Imdur] 30 mg PO DAILY 12/02/19 [History] Gabapentin [Neurontin] 100 mg PO BEDTIME 12/03/19 [History] amLODIPine [Norvasc] 5 mg PO DAILY 12/03/19 [History] cloNIDine [Catapres] 0.2 mg PO TID 12/03/19 [History] hydrALAZINE [Apresoline] 75 mg PO TID 12/03/19 [History] Aspirin 81 mg PO WITHBREAKFAST #30 tab.chew 12/04/19 [Rx] cephALEXin [Keflex] 250 mg PO BID #10 cap 12/04/19 [Rx] Oxygen Therapy Mode: Room Air Patient Handouts: Urinary Tract Infection, Adult, [id number] Referrals: Darrin Bolton MD [Primary Care Provider] - - Discharge Summary/Plan Comment DC Time >30 min.: Yes - General Info Date of Service: 12/04/19 Functional Status: Reports: Pain Controlled, Tolerating Diet, Ambulating - Review of Systems Pulmonary: Denies: Shortness of Breath Cardiovascular: Denies: Chest Pain, Edema Gastrointestinal: Denies: Abdominal Pain Neurological: Denies: Confusion - Patient Data Vitals - Most Recent: Last Vital Signs Temp 97.8 F 12/04/19 08:00 Pulse 82 12/04/19 09:28 Resp 20 12/04/19 08:00 BP 151/66 H 12/04/19 09:31 Pulse Ox 97 12/04/19 08:00 Weight - Most Recent: 199 lb 14.4 oz I&O - Last 24 hours: Intake & Output 12/03/19 12/04/19 12/04/19 22:59 06:59 14:59 Intake Total 500 200 Output Total 125 Balance 375 200 Lab Results - Last 24 hrs: Laboratory Results - last 24 hr 12/03/19 12/03/19 12/03/19 Range/Units 07:59 11:50 16:42 WBC (5.0-10.0) 10^3/uL RBC (4.6-6.2) 10^6/uL Hgb (14.0-18.0) g/dL Hct (40.0-54.0) % MCV (80-100) fL MCH (27.0-34.0) pg MCHC (33.0-35.0) g/dL Plt Count (150-450) 10^3/uL Neut % (Auto) (42.2-75.2) % Lymph % (Auto) (20.5-50.1) % [place] % (Auto) (2-8) % Eos % (Auto) (1.0-3.0) % Baso % (Auto) (0.0-1.0) % Sodium (136-145) mmol/L Potassium (3.5-5.1) mmol/L Chloride (98-107) mmol/L Carbon Dioxide (21-32) mmol/L Anion Gap (7-13) mEq/L BUN (7-18) mg/dL Creatinine (0.70-1.30) mg/dL Est Cr Clr Drug Dosing mL/min Estimated GFR (MDRD) Glucose (74-99) mg/dL POC Glucose 150 H 262 H 178 H (83-110) mg/dl Calcium (8.5-10.1) mg/dL 12/03/19 12/04/19 12/04/19 Range/Units 20:50 06:10 06:10 WBC 8.1 (5.0-10.0) 10^3/uL RBC 2.97 L (4.6-6.2) 10^6/uL Hgb 8.6 L (14.0-18.0) g/dL Hct 26.6 L (40.0-54.0) % MCV 89.6 (80-100) fL MCH 29.0 (27.0-34.0) pg MCHC 32.3 L (33.0-35.0) g/dL Plt Count 165 (150-450) 10^3/uL Neut % (Auto) 69.9 (42.2-75.2) % Lymph % (Auto) 13.2 L (20.5-50.1) % [place] % (Auto) 13.6 H (2-8) % Eos % (Auto) 3.1 H (1.0-3.0) % Baso % (Auto) 0.2 (0.0-1.0) % Sodium 142 (136-145) mmol/L Potassium 3.0 L (3.5-5.1) mmol/L Chloride 104 (98-107) mmol/L Carbon Dioxide 29 (21-32) mmol/L Anion Gap 12.0 (7-13) mEq/L BUN 69 H (7-18) mg/dL Creatinine 4.87 H (0.70-1.30) mg/dL Est Cr Clr Drug Dosing 11.90 mL/min Estimated GFR (MDRD) 12 Glucose 164 H (74-99) mg/dL POC Glucose 164 H (83-110) mg/dl Calcium 8.2 L (8.5-10.1) mg/dL 12/04/19 Range/Units 08:07 WBC (5.0-10.0) 10^3/uL RBC (4.6-6.2) 10^6/uL Hgb (14.0-18.0) g/dL Hct (40.0-54.0) % MCV (80-100) fL MCH (27.0-34.0) pg MCHC (33.0-35.0) g/dL Plt Count (150-450) 10^3/uL Neut % (Auto) (42.2-75.2) % Lymph % (Auto) (20.5-50.1) % [place] % (Auto) (2-8) % Eos % (Auto) (1.0-3.0) % Baso % (Auto) (0.0-1.0) % Sodium (136-145) mmol/L Potassium (3.5-5.1) mmol/L Chloride (98-107) mmol/L Carbon Dioxide (21-32) mmol/L Anion Gap (7-13) mEq/L BUN (7-18) mg/dL Creatinine (0.70-1.30) mg/dL Est Cr Clr Drug Dosing mL/min Estimated GFR (MDRD) Glucose (74-99) mg/dL POC Glucose 163 H (83-110) mg/dl Calcium (8.5-10.1) mg/dL KATHY Results - Last 24 hrs: Microbiology 12/02/19 07:10 Aerobic Blood Culture - Preliminary Blood Anaerobic Blood Culture - Preliminary NO GROWTH AFTER 2 DAYS 12/02/19 08:32 Urine Culture - Final Urine, Voided Staphylococcus Epidermidis Med Orders - Current: Current Medications Acetaminophen (Tylenol) 650 mg PO Q6H PRN PRN Reason: Pain (Mild 1-3)/fever Last Admin: 12/02/19 21:02 Dose: 650 mg Hydrocodone Bitart/Acetaminophen ([place] 325-5 Mg) 1 tab PO Q8HR PRN PRN Reason: Pain Allopurinol (Zyloprim) 100 mg PO BEDTIME [facility] Last Admin: 12/03/19 21:16 Dose: 100 mg Amlodipine Besylate (Norvasc) 5 mg PO DAILY [facility] Last Admin: 12/04/19 09:25 Dose: 5 mg Aspirin (Aspirin) 81 mg PO WITHBREAKFAST [facility] Last Admin: 12/04/19 09:29 Dose: 81 mg Atorvastatin Calcium (Lipitor) 20 mg PO BEDTIME [facility] Last Admin: 12/03/19 21:16 Dose: 20 mg Calcitriol (Rocaltrol) 0.25 mcg PO DAILY [facility] Last Admin: 12/04/19 09:28 Dose: 0.25 mcg Clonidine HCl (Catapres) 0.2 mg PO TID [facility] Last Admin: 12/04/19 09:30 Dose: 0.2 mg Cyanocobalamin (Vitamin B12) 1,000 mcg PO DAILY [facility] Last Admin: 12/04/19 09:26 Dose: 1,000 mcg Dextrose/Water (Dextrose 50% In Water) 25 ml IVPUSH ASDIRECTED PRN PRN Reason: Hypoglycemia Diltiazem HCl (Cardizem Cd) 120 mg PO DAILY [facility] Last Admin: 12/04/19 09:26 Dose: 120 mg Gabapentin (Neurontin) 100 mg PO BEDTIME [facility] Last Admin: 12/03/19 21:16 Dose: 100 mg Glucagon (Glucagen) 1 mg IM ONETIME PRN PRN Reason: Hypoglycemia Heparin Sodium (Porcine) (Heparin Sodium) 5,000 units SUBCUT Q8HR [facility] Last Admin: 12/04/19 05:53 Dose: 5,000 units Hydralazine HCl (Apresoline) 75 mg PO TID [facility] Last Admin: 12/04/19 09:27 Dose: 75 mg Ceftriaxone Sodium 1 gm/ (Sodium Chloride) 50 mls @ 100 mls/hr IV Q24H [facility] Last Admin: 12/03/19 10:47 Dose: 100 mls/hr Insulin Glargine (Lantus) 26 unit SUBCUT BEDTIME [facility] Last Admin: 12/03/19 21:11 Dose: 26 units Insulin Human Lispro (Humalog) 0 unit SUBCUT WITHMEALSANDBED [facility]; Protocol Last Admin: 12/04/19 09:33 Dose: 1 units Isosorbide Mononitrate (Imdur) 30 mg PO DAILY [facility] Last Admin: 12/04/19 09:31 Dose: 30 mg Metoprolol Tartrate (Lopressor) 150 mg PO BID [facility] Last Admin: 12/04/19 09:28 Dose: 150 mg Ondansetron HCl (Zofran Odt) 4 mg PO Q6H PRN PRN Reason: nausea, able to take PO Ondansetron HCl (Zofran) 4 mg IVPUSH Q6H PRN PRN Reason: Nausea/Vomiting Sodium Chloride (Saline Flush) 10 ml FLUSH ASDIRECTED PRN PRN Reason: Keep Vein Open Last Admin: 12/03/19 21:16 Dose: 10 ml Vancomycin HCl (Pharmacy To Dose - Vancomycin) 0 dose .XX ASDIRECTED [facility] Discontinued Medications Clonidine HCl (Catapres) 0.1 mg PO BID [facility] Last Admin: 12/03/19 10:32 Dose: Not Given Gabapentin (Neurontin) 100 mg PO BEDTIME [facility] Gabapentin (Neurontin) 300 mg PO BEDTIME [facility] Hydralazine HCl (Apresoline) 100 mg PO TID [facility] Last Admin: 12/03/19 10:32 Dose: Not Given Sodium Chloride (Normal Saline) 1,000 mls @ 75 mls/hr IV ASDIRECTED [facility] Stop: 12/02/19 23:31 Last Admin: 12/02/19 11:54 Dose: 75 mls/hr Potassium Chloride 10 meq/ (Premix) 100 mls @ 50 mls/hr IV Q2H [facility] Stop: 12/03/19 13:59 Last Infusion: 12/03/19 15:30 Dose: Infused Vancomycin HCl 1 gm/ Sodium (Chloride) 250 mls @ 166.667 mls/hr IV ONETIME ONE Stop: 12/03/19 13:29 Last Admin: 12/03/19 12:46 Dose: 166.667 mls/hr Insulin Glargine (Lantus) 21 unit SUBCUT BEDTIME [facility] Last Admin: 12/02/19 21:01 Dose: 21 unit Metoprolol Tartrate (Lopressor) 100 mg PO BID [facility] Last Admin: 12/03/19 10:32 Dose: Not Given Potassium Chloride (Klor-Con 10) 20 meq PO ONETIME ONE Stop: 12/03/19 16:01 Last Admin: 12/03/19 17:37 Dose: 20 meq Potassium Chloride (Klor-Con 10) 40 meq PO ONETIME ONE Stop: 12/04/19 09:34 - Exam General: Reports: Alert, Oriented Neck: Reports: Supple Lungs: Reports: Clear to Auscultation, Normal Respiratory Effort Cardiovascular: Reports: Regular Rate, Regular Rhythm GI/Abdominal Exam: Normal Bowel Sounds, Soft, Non-Tender Extremities: No Pedal Edema Skin: Reports: Warm, Dry Neurological: Reports: No New Focal Deficit Psy/Mental Status: Reports: Alert, Normal Affect, Normal Mood
--- NOTE | 2019-12-04 11:00 | PCM.PN ---
- General Info Date of Service: 12/04/19 Admission Dx/Problem (Free Text): Admission Diagnosis/Problem Admission Diagnosis/Problem UTI, Urinary tract infectious disease Subjective Update: feeling stronger, no associated confusion mod to severe weakness has started prior to admission has been up with pt/ot, walking with walker no cp, no sob incontinent to urine Functional Status: Reports: Pain Controlled, Tolerating Diet - Review of Systems General: Reports: Weakness. Denies: Fever Pulmonary: Denies: Shortness of Breath, Cough Gastrointestinal: Denies: Abdominal Pain Genitourinary: Reports: Incontinence. Denies: Dysuria Neurological: Denies: Confusion - Patient Data Vitals - Most Recent: Last Vital Signs Temp 97.8 F 12/04/19 08:00 Pulse 82 12/04/19 09:28 Resp 20 12/04/19 08:00 BP 151/66 H 12/04/19 09:31 Pulse Ox 97 12/04/19 08:00 Weight - Most Recent: 199 lb 14.4 oz I&O - Last 24 Hours: Intake & Output 12/03/19 12/04/19 12/04/19 22:59 06:59 14:59 Intake Total 500 200 Output Total 125 Balance 375 200 Lab Results Last 24 Hours: Laboratory Results - last 24 hr 12/03/19 12/03/19 12/03/19 Range/Units 07:59 11:50 16:42 WBC (5.0-10.0) 10^3/uL RBC (4.6-6.2) 10^6/uL Hgb (14.0-18.0) g/dL Hct (40.0-54.0) % MCV (80-100) fL MCH (27.0-34.0) pg MCHC (33.0-35.0) g/dL Plt Count (150-450) 10^3/uL Neut % (Auto) (42.2-75.2) % Lymph % (Auto) (20.5-50.1) % [place] % (Auto) (2-8) % Eos % (Auto) (1.0-3.0) % Baso % (Auto) (0.0-1.0) % Sodium (136-145) mmol/L Potassium (3.5-5.1) mmol/L Chloride (98-107) mmol/L Carbon Dioxide (21-32) mmol/L Anion Gap (7-13) mEq/L BUN (7-18) mg/dL Creatinine (0.70-1.30) mg/dL Est Cr Clr Drug Dosing mL/min Estimated GFR (MDRD) Glucose (74-99) mg/dL POC Glucose 150 H 262 H 178 H (83-110) mg/dl Calcium (8.5-10.1) mg/dL 12/03/19 12/04/19 12/04/19 Range/Units 20:50 06:10 06:10 WBC 8.1 (5.0-10.0) 10^3/uL RBC 2.97 L (4.6-6.2) 10^6/uL Hgb 8.6 L (14.0-18.0) g/dL Hct 26.6 L (40.0-54.0) % MCV 89.6 (80-100) fL MCH 29.0 (27.0-34.0) pg MCHC 32.3 L (33.0-35.0) g/dL Plt Count 165 (150-450) 10^3/uL Neut % (Auto) 69.9 (42.2-75.2) % Lymph % (Auto) 13.2 L (20.5-50.1) % [place] % (Auto) 13.6 H (2-8) % Eos % (Auto) 3.1 H (1.0-3.0) % Baso % (Auto) 0.2 (0.0-1.0) % Sodium 142 (136-145) mmol/L Potassium 3.0 L (3.5-5.1) mmol/L Chloride 104 (98-107) mmol/L Carbon Dioxide 29 (21-32) mmol/L Anion Gap 12.0 (7-13) mEq/L BUN 69 H (7-18) mg/dL Creatinine 4.87 H (0.70-1.30) mg/dL Est Cr Clr Drug Dosing 11.90 mL/min Estimated GFR (MDRD) 12 Glucose 164 H (74-99) mg/dL POC Glucose 164 H (83-110) mg/dl Calcium 8.2 L (8.5-10.1) mg/dL 12/04/19 Range/Units 08:07 WBC (5.0-10.0) 10^3/uL RBC (4.6-6.2) 10^6/uL Hgb (14.0-18.0) g/dL Hct (40.0-54.0) % MCV (80-100) fL MCH (27.0-34.0) pg MCHC (33.0-35.0) g/dL Plt Count (150-450) 10^3/uL Neut % (Auto) (42.2-75.2) % Lymph % (Auto) (20.5-50.1) % [place] % (Auto) (2-8) % Eos % (Auto) (1.0-3.0) % Baso % (Auto) (0.0-1.0) % Sodium (136-145) mmol/L Potassium (3.5-5.1) mmol/L Chloride (98-107) mmol/L Carbon Dioxide (21-32) mmol/L Anion Gap (7-13) mEq/L BUN (7-18) mg/dL Creatinine (0.70-1.30) mg/dL Est Cr Clr Drug Dosing mL/min Estimated GFR (MDRD) Glucose (74-99) mg/dL POC Glucose 163 H (83-110) mg/dl Calcium (8.5-10.1) mg/dL David Results Last 24 Hours: Microbiology 12/03/19 10:33 Aerobic Blood Culture - Preliminary Blood - Venous - Lab Draw NO GROWTH AFTER 1 DAY Anaerobic Blood Culture - Preliminary 12/03/19 10:30 Aerobic Blood Culture - Preliminary Blood - Venous NO GROWTH AFTER 1 DAY Anaerobic Blood Culture - Preliminary NO GROWTH AFTER 1 DAY 12/02/19 07:10 Aerobic Blood Culture - Preliminary Blood Anaerobic Blood Culture - Preliminary NO GROWTH AFTER 2 DAYS 12/02/19 08:32 Urine Culture - Final Urine, Voided Staphylococcus Epidermidis Med Orders - Current: Current Medications Acetaminophen (Tylenol) 650 mg PO Q6H PRN PRN Reason: Pain (Mild 1-3)/fever Last Admin: 12/02/19 21:02 Dose: 650 mg Hydrocodone Bitart/Acetaminophen ([place] 325-5 Mg) 1 tab PO Q8HR PRN PRN Reason: Pain Allopurinol (Zyloprim) 100 mg PO BEDTIME [facility] Last Admin: 12/03/19 21:16 Dose: 100 mg Amlodipine Besylate (Norvasc) 5 mg PO DAILY [facility] Last Admin: 12/04/19 09:25 Dose: 5 mg Aspirin (Aspirin) 81 mg PO WITHBREAKFAST [facility] Last Admin: 12/04/19 09:29 Dose: 81 mg Atorvastatin Calcium (Lipitor) 20 mg PO BEDTIME [facility] Last Admin: 12/03/19 21:16 Dose: 20 mg Calcitriol (Rocaltrol) 0.25 mcg PO DAILY [facility] Last Admin: 12/04/19 09:28 Dose: 0.25 mcg Clonidine HCl (Catapres) 0.2 mg PO TID [facility] Last Admin: 12/04/19 09:30 Dose: 0.2 mg Cyanocobalamin (Vitamin B12) 1,000 mcg PO DAILY [facility] Last Admin: 12/04/19 09:26 Dose: 1,000 mcg Dextrose/Water (Dextrose 50% In Water) 25 ml IVPUSH ASDIRECTED PRN PRN Reason: Hypoglycemia Diltiazem HCl (Cardizem Cd) 120 mg PO DAILY [facility] Last Admin: 12/04/19 09:26 Dose: 120 mg Gabapentin (Neurontin) 100 mg PO BEDTIME [facility] Last Admin: 12/03/19 21:16 Dose: 100 mg Glucagon (Glucagen) 1 mg IM ONETIME PRN PRN Reason: Hypoglycemia Heparin Sodium (Porcine) (Heparin Sodium) 5,000 units SUBCUT Q8HR [facility] Last Admin: 12/04/19 05:53 Dose: 5,000 units Hydralazine HCl (Apresoline) 75 mg PO TID [facility] Last Admin: 12/04/19 09:27 Dose: 75 mg Ceftriaxone Sodium 1 gm/ (Sodium Chloride) 50 mls @ 100 mls/hr IV Q24H [facility] Last Admin: 12/03/19 10:47 Dose: 100 mls/hr Insulin Glargine (Lantus) 26 unit SUBCUT BEDTIME [facility] Last Admin: 12/03/19 21:11 Dose: 26 units Insulin Human Lispro (Humalog) 0 unit SUBCUT WITHMEALSANDBED [facility]; Protocol Last Admin: 12/04/19 09:33 Dose: 1 units Isosorbide Mononitrate (Imdur) 30 mg PO DAILY [facility] Last Admin: 12/04/19 09:31 Dose: 30 mg Metoprolol Tartrate (Lopressor) 150 mg PO BID [facility] Last Admin: 12/04/19 09:28 Dose: 150 mg Ondansetron HCl (Zofran Odt) 4 mg PO Q6H PRN PRN Reason: nausea, able to take PO Ondansetron HCl (Zofran) 4 mg IVPUSH Q6H PRN PRN Reason: Nausea/Vomiting Sodium Chloride (Saline Flush) 10 ml FLUSH ASDIRECTED PRN PRN Reason: Keep Vein Open Last Admin: 12/03/19 21:16 Dose: 10 ml Vancomycin HCl (Pharmacy To Dose - Vancomycin) 1 dose .XX ASDIRECTED [facility] Discontinued Medications Clonidine HCl (Catapres) 0.1 mg PO BID [facility] Last Admin: 12/03/19 10:32 Dose: Not Given Gabapentin (Neurontin) 100 mg PO BEDTIME [facility] Gabapentin (Neurontin) 300 mg PO BEDTIME [facility] Hydralazine HCl (Apresoline) 100 mg PO TID [facility] Last Admin: 12/03/19 10:32 Dose: Not Given Sodium Chloride (Normal Saline) 1,000 mls @ 75 mls/hr IV ASDIRECTED [facility] Stop: 12/02/19 23:31 Last Admin: 12/02/19 11:54 Dose: 75 mls/hr Potassium Chloride 10 meq/ (Premix) 100 mls @ 50 mls/hr IV Q2H [facility] Stop: 12/03/19 13:59 Last Infusion: 12/03/19 15:30 Dose: Infused Vancomycin HCl 1 gm/ Sodium (Chloride) 250 mls @ 166.667 mls/hr IV ONETIME ONE Stop: 12/03/19 13:29 Last Admin: 12/03/19 12:46 Dose: 166.667 mls/hr Insulin Glargine (Lantus) 21 unit SUBCUT BEDTIME [facility] Last Admin: 12/02/19 21:01 Dose: 21 unit Metoprolol Tartrate (Lopressor) 100 mg PO BID [facility] Last Admin: 12/03/19 10:32 Dose: Not Given Potassium Chloride (Klor-Con 10) 20 meq PO ONETIME ONE Stop: 12/03/19 16:01 Last Admin: 12/03/19 17:37 Dose: 20 meq Potassium Chloride (Klor-Con 10) 40 meq PO ONETIME ONE Stop: 12/04/19 09:34 Last Admin: 12/04/19 10:09 Dose: 40 meq Vancomycin HCl (Pharmacy To Dose - Vancomycin) 0 dose .XX ASDIRECTED [facility] - Exam General: Alert, Oriented Neck: Supple Lungs: Clear to Auscultation, Normal Respiratory Effort Cardiovascular: Regular Rate, Regular Rhythm GI/Abdominal Exam: Normal Bowel Sounds, Soft Extremities: No Pedal Edema Sepsis Event Note - Evaluation Sepsis Screening Result: No Definite Risk - Focused Exam Vital Signs: Vital Signs Temp Pulse Pulse Resp BP BP Pulse Ox 12/04/19 09:31 151/66 H 12/04/19 09:30 151/66 H 12/04/19 09:28 82 151/66 H 12/04/19 09:27 151/66 H 12/04/19 09:26 82 151/66 H 12/04/19 09:25 151/66 H 12/04/19 08:00 97.8 F 82 20 151/66 H 97 12/04/19 04:00 98 F 74 20 141/59 H 97 Date Exam was Performed: 12/04/19 Time Exam was Performed: 10:57 - Problem List & Annotations (1) Bacteremia SNOMED Code(s): 2022636 Code(s): R78.81 - BACTEREMIA Status: Ruled-out Current Visit: Yes (2) Acute on chronic kidney failure SNOMED Code(s): 430946667 Code(s): N17.9 - ACUTE KIDNEY FAILURE, UNSPECIFIED; N18.9 - CHRONIC KIDNEY DISEASE, UNSPECIFIED Status: Acute Current Visit: Yes (3) CKD (chronic kidney disease) SNOMED Code(s): 128657113 Code(s): N18.9 - CHRONIC KIDNEY DISEASE, UNSPECIFIED Status: Acute Current Visit: No Qualifiers: Chronic kidney disease stage: stage 3 (moderate) Qualified Code(s): N18.3 - Chronic kidney disease, stage 3 (moderate) (4) Congestive heart failure SNOMED Code(s): 13392265 Code(s): I50.9 - HEART FAILURE, UNSPECIFIED Status: Acute Current Visit: No Qualifiers: Qualified Code(s): I50.9 - Heart failure, unspecified (5) UTI (urinary tract infection) SNOMED Code(s): 24575034 Code(s): N39.0 - URINARY TRACT INFECTION, SITE NOT SPECIFIED Status: Acute Current Visit: No Qualifiers: Urinary tract infection type: site unspecified Hematuria presence: with hematuria Qualified Code(s): N39.0 - Urinary tract infection, site not specified; R31.9 - Hematuria, unspecified (6) Essential hypertension SNOMED Code(s): 44565653 Code(s): I10 - ESSENTIAL (PRIMARY) HYPERTENSION Status: Chronic Current Visit: No (7) History of atrial fibrillation SNOMED Code(s): 250518344 Code(s): Z86.79 - PERSONAL HISTORY OF OTHER DISEASES OF THE CIRCULATORY SYSTEM Status: Chronic Current Visit: No - Problem List Review Problem List Initiated/Reviewed/Updated: Yes - My Orders Last 24 Hours: My Active Orders 12/03/19 10:02 Blood Culture x2 Reflex Set [OM.PC] Stat 12/03/19 10:15 Aspirin 81 mg PO WITHBREAKFAST Metoprolol Tartrate [Lopressor] 150 mg PO BID amLODIPine [Norvasc] 5 mg PO DAILY cloNIDine [Catapres] 0.2 mg PO TID hydrALAZINE [Apresoline] 75 mg PO TID 12/03/19 10:30 CULTURE BLOOD [BC] Routine 12/03/19 10:33 CULTURE BLOOD [BC] Routine 12/03/19 21:00 Gabapentin [Neurontin] 100 mg PO BEDTIME Insulin Glarg,Human.Rec.Analog [LantUS] 26 unit SUBCUT BEDTIME allopurinoL [Zyloprim] 100 mg PO BEDTIME atorvaSTATin [Lipitor] 20 mg PO BEDTIME 12/04/19 09:47 Ready for Discharge [RC] PER UNIT ROUTINE 12/04/19 10:55 Echo Comp wo Cont [US] Routine 12/04/19 11:00 Pharmacy to Dose - Vancomycin 1 dose .XX ASDIRECTED - Plan Plan:: #Urinary tract infection: Patient presented with urinary incontinence. In the context of weakness. Found to have UA positive for leukocytes and urine microscopy positive for WBCs and bacteria. Ucx: staph epi with bacteremia tx. with vanc #bacteremia, BC 12/02 1/, 12/03 2/2 coag neg staph cont vanc repeat BC today #Weakness #Falls Likely secondary to urinary tract infection/bacteremia PT and OT Fall precautions #MARLEEN on CKD stage IV/V on admission creatinine of 6.55, Creatinine was 5.7 on 11/26/2019 finished Gentle fluid resuscitation follow with vanc #severe hypokalemia replace with PO supplement recheck in AM #Type 2 diabetes: Continue Lantus Sliding scale insulin and hypoglycemia protocol #chronic Diastolic heart failure: Patient with grade 2 diastolic dysfunction on echocardiogram from 11/04/2019 Avoid volume overload #History of atrial fibrillation Heart rate is at goal Continue Cardizem not on anticoagulation #History of CAD cont asa cardizem for rate control #DVT prophylaxis: Heparin Status: DNR/DNI per patient preference
[2019-12-04] MEDS: cefTRIAXone 1 GM in Sodium Chloride 0.9% 50 ML IV SCH (12:32)
[2019-12-04] MEDS: atorvaSTATin 20 MG Tab PO SCH (20:45)
[2019-12-04] MEDS: Gabapentin 100 MG Cap PO SCH (20:45)
[2019-12-04] MEDS: Allopurinol 100 MG Tab PO SCH (20:46)
[2019-12-04] MEDS: Insulin Glarg,Human.Rec.Analog 100 Unit/ML SUBCUT SCH (20:58)
[2019-12-04] MEDS: Sodium Chloride 0.9% 10 ML Syringe FLUSH PRN (22:06)
[2019-12-05] MEDS: Heparin Sodium 5,000 Units/ML Vial SUBCUT SCH ×2 (06:15→14:43)
[2019-12-05] MEDS: Insulin Lispro 100 Units/ML 3 ML Vial SUBCUT SCH ×2 (08:03→12:25)
[2019-12-05] MEDS: Calcitriol 0.25 MCG Cap PO SCH (08:53)
[2019-12-05] MEDS: Aspirin 81 MG Tab.Chew PO SCH (08:53)
[2019-12-05] MEDS: Cyanocobalamin (Vitamin B12) 1,000 MCG Tab PO SCH (08:53)
[2019-12-05] MEDS: Diltiazem 120 MG Cap.CD PO SCH (08:54)
[2019-12-05 11:46] VITALS: BP 152/58; PULSE 62
[2019-12-05] MEDS: Metoprolol Tartrate 50 MG Tab PO SCH (12:22)
[2019-12-05] MEDS: hydrALAZINE 25 MG Tab PO SCH ×2 (12:23→14:42)
[2019-12-05] MEDS: Isosorbide Mononitrate 30 MG Tab.ER PO SCH (12:24)
[2019-12-05] MEDS: amLODIPine 5 MG Tab PO SCH (12:24)
[2019-12-05] MEDS: cloNIDine 0.1 MG Tab PO SCH ×2 (12:25→14:43)
[2019-12-05] MEDS ORDERED: DAPTOmycin 500 MG Vial IV SCH (12:30)
--- NOTE | 2019-12-05 12:48 | PCM.DCSUM1 ---
Discharge Summary - Hospital Course Free Text/Narrative:: Presented with weakness #Urinary tract infection, bacteremia Patient presented with urinary incontinence. In the context of weakness. Found to have UA positive for leukocytes and urine microscopy positive for WBCs and bacteria. Ucx: staph epi Blood cx: coag neg staph - repeatedly Echo pending CT chest, abd, Pelvis - pending was treated with Vanc d/w ID - dr. Reese - due to poorrenal fx. will tx with Dapto f/up with ID clinic hold statin while on dapto #Weakness #Falls Likely secondary to urinary tract infection PT and OT rec. 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 on admission creatinine of 6.55, Creatinine was 5.7 on 11/26/2019 improved with Gentle fluid resuscitation follow with PMD, nephrology #severe hypokalemia replace with IV and PO supplement recheck in periodically #Type 2 diabetes: Continue Lantus #chronic Diastolic heart failure: Patient with grade 2 diastolic dysfunction on echocardiogram from 11/04/2019 Avoid volume overload #History of atrial fibrillation Heart rate is at goal Continue Cardizem not on anticoagulation #History of CAD cont asa cardizem for rate control Diagnosis: Stroke: No - Discharge Data Discharge Date: 12/05/19 Discharge Disposition: Home, Self-Care 01 Condition: Good - Referral to Home Health Primary Care Physician: Darrin Bolton MD - Discharge Diagnosis/Problem(s) (1) Bacteremia SNOMED Code(s): 2919812 ICD Code: R78.81 - BACTEREMIA Status: Ruled-out Current Visit: Yes (2) Acute on chronic kidney failure SNOMED Code(s): 015670039 ICD Code: N17.9 - ACUTE KIDNEY FAILURE, UNSPECIFIED; N18.9 - CHRONIC KIDNEY DISEASE, UNSPECIFIED Status: Acute Current Visit: Yes (3) CKD (chronic kidney disease) SNOMED Code(s): 131910338 ICD Code: N18.9 - CHRONIC KIDNEY DISEASE, UNSPECIFIED Status: Acute Current Visit: No Qualifiers: Chronic kidney disease stage: stage 3 (moderate) Qualified Code(s): N18.3 - Chronic kidney disease, stage 3 (moderate) (4) Congestive heart failure SNOMED Code(s): 05502954 ICD Code: I50.9 - HEART FAILURE, UNSPECIFIED Status: Acute Current Visit : No Qualifiers: Qualified Code(s): I50.9 - Heart failure, unspecified (5) UTI (urinary tract infection) SNOMED Code(s): 71544418 ICD Code: N39.0 - URINARY TRACT INFECTION, SITE NOT SPECIFIED Status: Acute Current Visit: No Qualifiers: Urinary tract infection type: site unspecified Hematuria presence: with hematuria Qualified Code(s): N39.0 - Urinary tract infection, site not specified; R31.9 - Hematuria, unspecified (6) Essential hypertension SNOMED Code(s): 14909454 ICD Code: I10 - ESSENTIAL (PRIMARY) HYPERTENSION Status: Chronic Current Visit: No (7) History of atrial fibrillation SNOMED Code(s): 189578426 ICD Code: Z86.79 - PERSONAL HISTORY OF OTHER DISEASES OF THE CIRCULATORY SYSTEM Status: Chronic Current Visit: No - Patient Summary/Data Consults: Consultations 12/02/19 09:41 OT Evaluation and Treatment [CONS] Routine PT Evaluation and Treatment [CONS] Routine 12/05/19 09:46 Consult to Physician [CONS] Routine - Patient Instructions Diet: Heart Healthy Diet Activity: As Tolerated - Discharge Plan *PRESCRIPTION DRUG MONITORING PROGRAM REVIEWED*: Not Applicable *COPY OF PRESCRIPTION DRUG MONITORING REPORT IN PATIENT MARLENA: Not Applicable Prescriptions/Med Rec: Aspirin 81 mg PO WITHBREAKFAST #30 tab.chew Home Medications: Home Meds Insulin Glarg,Human.Rec.Analog [Lantus] 26 units SQ BEDTIME 10/31/19 [History] Metoprolol Tartrate [Lopressor] 150 mg PO BID 10/31/19 [History] allopurinoL [Zyloprim] 100 mg PO BEDTIME 10/31/19 [History] calcitrioL [Calcitriol] 0.25 mcg PO DAILY 10/31/19 [History] Cyanocobalamin (Vitamin B-12) [Vitamin B-12] 1,000 mcg PO DAILY 12/02/19 [ History] Diltiazem [Dilacor XR] 120 mg PO DAILY 12/02/19 [History] Hydrocodone/Acetaminophen [Charlemont 5-325 Tablet] 1 tab PO Q8HR PRN 12/02/19 [ History] Isosorbide Mononitrate [Imdur] 30 mg PO DAILY 12/02/19 [History] Gabapentin [Neurontin] 100 mg PO BEDTIME 12/03/19 [History] amLODIPine [Norvasc] 5 mg PO DAILY 12/03/19 [History] cloNIDine [Catapres] 0.2 mg PO TID 12/03/19 [History] hydrALAZINE [Apresoline] 75 mg PO TID 12/03/19 [History] Aspirin 81 mg PO WITHBREAKFAST #30 tab.chew 12/04/19 [Rx] DAPTOmycin [Cubicin] 500 mg IV .Q48H vial 12/05/19 [Rx] Oxygen Therapy Mode: Room Air Patient Handouts: Urinary Tract Infection, Adult, [id number], Daptomycin injection Referrals: Darrin Bolton MD [Primary Care Provider] - Cecy Reese MD [Physician] - - Discharge Summary/Plan Comment DC Time >30 min.: Yes (d/w Dr. Reese ) - General Info Date of Service: 12/05/19 Subjective Update: feeling stronger, no associated confusion mod to severe weakness has started prior to admission - resolved has been up with pt/ot, walking with walker no cp, no sob incontinent to urine - Review of Systems General: Denies: Fever, Weakness Cardiovascular: Denies: Chest Pain, Edema Genitourinary: Denies: Dysuria Neurological: Denies: Confusion - Patient Data Vitals - Most Recent: Last Vital Signs Temp 98.3 F 12/05/19 11:45 Pulse 62 12/05/19 12:22 Resp 18 12/05/19 11:45 BP 152/58 H 12/05/19 12:25 Pulse Ox 97 12/05/19 11:45 Weight - Most Recent: 197 lb 8 oz I&O - Last 24 hours: Intake & Output 12/04/19 12/05/19 12/05/19 22:59 06:59 14:59 Intake Total 1550 700 240 Balance 1550 700 240 Lab Results - Last 24 hrs: Laboratory Results - last 24 hr 12/04/19 12/04/19 12/04/19 Range/Units 12:05 17:03 20:31 POC Glucose 144 H 211 H (83-110) mg/dl Random Vancomycin 8.0 (No Normal Range) ug/mL 12/05/19 12/05/19 Range/Units 07:45 11:41 POC Glucose 136 H 225 H (83-110) mg/dl Random Vancomycin (No Normal Range) ug/mL KATHY Results - Last 24 hrs: Microbiology 12/04/19 12:10 Aerobic Blood Culture - Preliminary Blood - Venous - Lab Draw NO GROWTH AFTER 1 DAY Anaerobic Blood Culture - Preliminary NO GROWTH AFTER 1 DAY 12/04/19 12:05 Aerobic Blood Culture - Preliminary Blood - Venous NO GROWTH AFTER 1 DAY Anaerobic Blood Culture - Preliminary NO GROWTH AFTER 1 DAY 12/03/19 10:33 Aerobic Blood Culture - Preliminary Blood - Venous - Lab Draw NO GROWTH AFTER 2 DAYS Anaerobic Blood Culture - Preliminary 12/03/19 10:30 Aerobic Blood Culture - Preliminary Blood - Venous NO GROWTH AFTER 2 DAYS Anaerobic Blood Culture - Preliminary NO GROWTH AFTER 2 DAYS 12/02/19 07:10 Aerobic Blood Culture - Preliminary Blood Anaerobic Blood Culture - Preliminary NO GROWTH AFTER 3 DAYS Med Orders - Current: Current Medications Acetaminophen (Tylenol) 650 mg PO Q6H PRN PRN Reason: Pain (Mild 1-3)/fever Last Admin: 12/02/19 21:02 Dose: 650 mg Hydrocodone Bitart/Acetaminophen (Charlemont 325-5 Mg) 1 tab PO Q8HR PRN PRN Reason: Pain Allopurinol (Zyloprim) 100 mg PO BEDTIME [facility] Last Admin: 12/04/19 20:46 Dose: 100 mg Amlodipine Besylate (Norvasc) 5 mg PO DAILY [facility] Last Admin: 12/05/19 12:24 Dose: 5 mg Aspirin (Aspirin) 81 mg PO WITHBREAKFAST [facility] Last Admin: 12/05/19 08:53 Dose: 81 mg Calcitriol (Rocaltrol) 0.25 mcg PO DAILY [facility] Last Admin: 12/05/19 08:53 Dose: 0.25 mcg Clonidine HCl (Catapres) 0.2 mg PO TID [facility] Last Admin: 12/05/19 12:25 Dose: 0.2 mg Cyanocobalamin (Vitamin B12) 1,000 mcg PO DAILY [facility] Last Admin: 12/05/19 08:53 Dose: 1,000 mcg Daptomycin (Cubicin) 500 mg IV Q48H [facility] Dextrose/Water (Dextrose 50% In Water) 25 ml IVPUSH ASDIRECTED PRN PRN Reason: Hypoglycemia Diltiazem HCl (Cardizem Cd) 120 mg PO DAILY [facility] Last Admin: 12/05/19 08:54 Dose: 120 mg Gabapentin (Neurontin) 100 mg PO BEDTIME [facility] Last Admin: 12/04/19 20:45 Dose: 100 mg Glucagon (Glucagen) 1 mg IM ONETIME PRN PRN Reason: Hypoglycemia Heparin Sodium (Porcine) (Heparin Sodium) 5,000 units SUBCUT Q8HR [facility] Last Admin: 12/05/19 06:15 Dose: 5,000 units Hydralazine HCl (Apresoline) 75 mg PO TID [facility] Last Admin: 12/05/19 12:23 Dose: 75 mg Insulin Glargine (Lantus) 26 unit SUBCUT BEDTIME [facility] Last Admin: 12/04/19 20:58 Dose: 26 units Insulin Human Lispro (Humalog) 0 unit SUBCUT WITHMEALSANDBED [facility]; Protocol Last Admin: 12/05/19 12:25 Dose: 4 units Isosorbide Mononitrate (Imdur) 30 mg PO DAILY [facility] Last Admin: 12/05/19 12:24 Dose: 30 mg Metoprolol Tartrate (Lopressor) 150 mg PO BID [facility] Last Admin: 12/05/19 12:22 Dose: 150 mg Ondansetron HCl (Zofran Odt) 4 mg PO Q6H PRN PRN Reason: nausea, able to take PO Ondansetron HCl (Zofran) 4 mg IVPUSH Q6H PRN PRN Reason: Nausea/Vomiting Sodium Chloride (Saline Flush) 10 ml FLUSH ASDIRECTED PRN PRN Reason: Keep Vein Open Last Admin: 12/04/19 22:06 Dose: 10 ml Discontinued Medications Atorvastatin Calcium (Lipitor) 20 mg PO BEDTIME [facility] Last Admin: 12/04/19 20:45 Dose: 20 mg Clonidine HCl (Catapres) 0.1 mg PO BID [facility] Last Admin: 12/03/19 10:32 Dose: Not Given Gabapentin (Neurontin) 100 mg PO BEDTIME [facility] Gabapentin (Neurontin) 300 mg PO BEDTIME [facility] Hydralazine HCl (Apresoline) 100 mg PO TID [facility] Last Admin: 12/03/19 10:32 Dose: Not Given Ceftriaxone Sodium 1 gm/ (Sodium Chloride) 50 mls @ 100 mls/hr IV Q24H [facility] Last Admin: 12/04/19 12:32 Dose: Not Given Sodium Chloride (Normal Saline) 1,000 mls @ 75 mls/hr IV ASDIRECTED [facility] Stop: 12/02/19 23:31 Last Admin: 12/02/19 11:54 Dose: 75 mls/hr Potassium Chloride 10 meq/ (Premix) 100 mls @ 50 mls/hr IV Q2H [facility] Stop: 12/03/19 13:59 Last Infusion: 12/03/19 15:30 Dose: Infused Vancomycin HCl 1 gm/ Sodium (Chloride) 250 mls @ 166.667 mls/hr IV ONETIME ONE Stop: 12/03/19 13:29 Last Admin: 12/03/19 12:46 Dose: 166.667 mls/hr Vancomycin HCl 1 gm/ Sodium (Chloride) 250 mls @ 166.667 mls/hr IV ONETIME ONE Stop: 12/04/19 14:59 Last Admin: 12/04/19 14:06 Dose: 166.667 mls/hr Insulin Glargine (Lantus) 21 unit SUBCUT BEDTIME [facility] Last Admin: 12/02/19 21:01 Dose: 21 unit Metoprolol Tartrate (Lopressor) 100 mg PO BID [facility] Last Admin: 12/03/19 10:32 Dose: Not Given Potassium Chloride (Klor-Con 10) 20 meq PO ONETIME ONE Stop: 12/03/19 16:01 Last Admin: 12/03/19 17:37 Dose: 20 meq Potassium Chloride (Klor-Con 10) 40 meq PO ONETIME ONE Stop: 12/04/19 09:34 Last Admin: 12/04/19 10:09 Dose: 40 meq Vancomycin HCl (Pharmacy To Dose - Vancomycin) 0 dose .XX ASDIRECTED [facility] Vancomycin HCl (Pharmacy To Dose - Vancomycin) 1 dose .XX ASDIRECTED [facility] - Exam General: Reports: Alert, Oriented Neck: Reports: Supple Lungs: Reports: Clear to Auscultation, Normal Respiratory Effort Cardiovascular: Reports: Regular Rate, Regular Rhythm Extremities: No Pedal Edema Skin: Reports: Warm Neurological: Reports: No New Focal Deficit
[2019-12-05] MEDS ORDERED: Barium Sulfate w/v 2.1% Oral Susp 450 ML Bottle PO ONE (12:49)
[2019-12-05] MEDS ORDERED: DAPTOmycin 500 MG in Sodium Chloride 0.9% 50 ML IV SCH (13:00)
[2019-12-05] MEDS: Sodium Chloride 0.9% 10 ML Syringe FLUSH PRN (14:32)
--- NOTE | 2019-12-05 15:22 | CT ---
EXAMINATION: Chest Abdomen Pelvis wo Cont SEX: Male AGE: 79 years CLINICAL HISTORY: 79-year-old hospitalized male with "coag neg" Staphylococcus bacteremia. "No active intrathoracic process" reported on plain chest radiographs 30 October or 02 Dec 2019. Evaluate please. Scan technique: Volume acquisition of data from the chest (bony thorax, lungs and mediastinum), abdomen and pelvis obtained after oral ingestion barium but without IV contrast while patient was lying supine on the Siemens multislice scanner [employer], [place]. All data archived in the PACS system for storage, reformatting axial/sagittal/coronal planes and study. Interpretation: 1. *Pancolonic diverticulosis without associated evidence of inflammation i.e. no pericolonic inflammatory "dirty" peritoneal fat or abscess. Large calcification (probable appendicolith) RLQ without associated inflammation. 2. Densely calcified "cast" normal caliber thoracic and abdominal aorta. No sign of mycotic or other aneurysm/dissection. 3. *Patchy "groundglass" infiltrate both midlungs (R>L) not typical of "Staphylococcus pneumonia" i.e. more consistent with covid19 virus infection. Close clinical correlation please. 4. Mild cardiomegaly without pulmonary vascular congestion, cephalization of flow, alveolar edema or pleural effusion. 5. Platelike atelectasis/fibrosis left lower lobe. No lung mass or hilar/mediastinal lymphadenopathy. 6. Osteoporosis; multilevel disc disease; hypertrophic spondylosis of the thoracolumbar spine. No pathologic skeletal lesion. 7. Cholelithiasis (single intraluminal calcification gallbladder RUQ). No sign of gallbladder inflammation and the unenhanced liver unremarkable. Normal stomach, spleen, pancreas and left adrenal gland (solitary 2.2 cm cyst right adrenal gland). 8. Abnormal prostate gland (inhomogeneously dense with multiple calcifications. Seminal vesicles unremarkable. Normal unenhanced kidneys and ureters but the bladder wall thickening suggesting chronic outlet obstruction or infection. 9. No inflammatory "dirty" peritoneal fat, pelvic or abdominal mass lesion, mesenteric/retroperitoneal lymphadenopathy, ascites or free intraperitoneal air. No retroperitoneal (psoas) or subcutaneous skin abnormality. No axillary or inguinal lymphadenopathy. CONCLUSION: Pancolonic diverticulosis. "Groundglass" infiltrates of the lung. Cholelithiasis. Abnormal prostate gland.
== END 2019-12-05 15:25 | disposition home or self-care (01) | DRG 690 ==
LOC: DL.ED 07:32 → DL.MS 09:05 → OBSVTOIN 12-03 09:01
PROVIDERS: ADMIT Internal Medicine; ATTEND Internal Medicine
DX: N39.0 Urinary tract infection, site not specified (principal); N17.9 Acute kidney failure, unspecified; R53.1 Weakness; I50.32 Chronic diastolic (congestive) heart failure; I50.9 Heart failure, unspecified; N18.4 Chronic kidney disease, stage 4 (severe); N18.3 Chronic kidney disease, stage 3 (moderate); I13.0 Hypertensive heart and chronic kidney disease with heart failure and stage 1 through stage 4 chronic kidney disease, or unspecified chronic kidney disease; E87.6 Hypokalemia; Z66 Do not resuscitate; N42.9 Disorder of prostate, unspecified; E66.9 Obesity, unspecified; C61 Malignant neoplasm of prostate; I48.91 Unspecified atrial fibrillation; I25.10 Atherosclerotic heart disease of native coronary artery without angina pectoris; W19.XXXA Unspecified fall, initial encounter; Z86.79 Personal history of other diseases of the circulatory system; R31.9 Hematuria, unspecified; E78.00 Pure hypercholesterolemia, unspecified; E11.22 Type 2 diabetes mellitus with diabetic chronic kidney disease; K59.09 Other constipation; Z79.4 Long term (current) use of insulin; Z79.899 Other long term (current) drug therapy; Z87.01 Personal history of pneumonia (recurrent)
CPT/HCPCS: 36415; 71045; 71250; 74176; 80048; 80053; 80202; 81001; 82550; 82962; 83605; 84484; 85025; 85027; 87040; 87077; 87086; 87088; 87186; 93005; 93306; 96361; 96365; 96366; 96367; 96372; 97110-GO; 97110-GP; 97116-GP; 97161-GP; 97165-GO; 97530-GO; 97535-GO; 99285-25; A9270-GY; G0378; J0696; J0878; J1644; J1815-GY; J3370; J3480; J7030; J7050

== ENCOUNTER 2020-01-20 16:15 | Emergency (ER) | payer MEDICARE ==
[2020-01-20 16:29] VITALS: BP 189/77; PULSE 58
[2020-01-20 17:00] LABS: ANION GAP 14.9 mEq/L (7-13); CHLORIDE,CL 105 mmol/L (98-107); SODIUM,NA 146 mmol/L (136-145)
--- NOTE | 2020-01-20 17:13 | EDM.PDOC ---
ED HPI GENERAL MEDICAL PROBLEM - General Stated Complaint: ELEVATED BP Time Seen by Provider: 01/20/20 16:56 Source of Information: Reports: Patient, Provider History Limitations: Reports: No Limitations - History of Present Illness INITIAL COMMENTS - FREE TEXT/NARRATIVE: This 79 yo male patient was sent to the ED from the [facility] due to a systolic blood pressure of 210. This patient was being seen in the Clinic due to intermittent shortness of breath. The patient reports he currently does not have any shortness of breath. The patient reports he has been taking an allergy nasal medication due to increased shortness of breath. The patient denies any nausea, vomiting, diarrhea, recent falls, no dark or tarry stools and no blood in his stools. The patient denies a cough, but reports his shortness of breath happens after exertion. Onset Date: 01/18/20 Duration: Intermittent Location: Reports: Chest Quality: Reports: Other Severity: Mild Improves with: Reports: None Worsens with: Reports: None Context: Reports: Other Associated Symptoms: Reports: Shortness of Breath (intermittent) - Related Data Allergies Allergy/AdvReac Type Severity Reaction Status Date / Time No Known Allergies Allergy Verified 01/20/20 16:41 Home Meds: Home Meds Insulin Glarg,Human.Rec.Analog [Lantus] 26 units SQ BEDTIME 10/31/19 [History] Metoprolol Tartrate [Lopressor] 100 mg PO BID 10/31/19 [History] allopurinoL [Zyloprim] 100 mg PO BEDTIME 10/31/19 [History] calcitrioL [Calcitriol] 0.25 mcg PO DAILY 10/31/19 [History] Cyanocobalamin (Vitamin B-12) [Vitamin B-12] 1,000 mcg PO DAILY 12/02/19 [History] Diltiazem [Dilacor XR] 120 mg PO DAILY 12/02/19 [History] Isosorbide Mononitrate [Imdur] 30 mg PO DAILY 12/02/19 [History] Gabapentin [Neurontin] 100 mg PO BEDTIME 12/03/19 [History] cloNIDine [Catapres] 0.1 mg PO BID 12/03/19 [History] hydrALAZINE [Apresoline] 50 mg PO TID 12/03/19 [History] glipiZIDE [Glucotrol] 5 mg PO BID 01/20/20 [History] Past Medical History HEENT History: Reports: None Cardiovascular History: Reports: Afib, Heart Failure, High Cholesterol, Hypertension, SOB on Exertion Respiratory History: Reports: None, SOB Gastrointestinal History: Reports: Chronic Constipation Genitourinary History: Reports: Acute Renal Failure, Prostate Disorder, UTI, Recurrent Musculoskeletal History: Reports: Fracture Neurological History: Reports: None Psychiatric History: Reports: None Endocrine/Metabolic History: Reports: Diabetes, Type II, Obesity/BMI 30+ Hematologic History: Reports: None Immunologic History: Reports: None Oncologic (Cancer) History: Reports: Prostate Other Oncologic History: injections every 6 months Dermatologic History: Reports: None - Infectious Disease History Infectious Disease History: Reports: None - Past Surgical History Head Surgeries/Procedures: Reports: None HEENT Surgical History: Reports: None Cardiovascular Surgical History: Reports: None GI Surgical History: Reports: Appendectomy, Colonoscopy Endocrine Surgical History: Reports: None Oncologic Surgical History: Reports: None Social & Family History - Family History Family Medical History: Noncontributory - Tobacco Use Smoking Status *Q: Never Smoker - Caffeine Use Caffeine Use: Reports: Coffee - Recreational Drug Use Recreational Drug Use: No ED ROS GENERAL - Review of Systems Review Of Systems: Comprehensive ROS is negative, except as noted in HPI. ED EXAM, GENERAL - Physical Exam Exam: See Below Exam Limited By: No Limitations General Appearance: Alert, WD/WN, No Apparent Distress Eye Exam: Bilateral Eye: EOMI, Normal Inspection, PERRL Ears: Normal External Exam, Normal Canal, Hearing Grossly Normal, Normal TMs Nose: Normal Inspection, Normal Mucosa, No Blood Throat/Mouth: Normal Inspection, Normal Lips, Normal Teeth, Normal Gums, Normal Oropharynx, Normal Voice, No Airway Compromise Head: Atraumatic, Normocephalic Neck: Normal Inspection, Supple, Non-Tender, Full Range of Motion Respiratory/Chest: No Respiratory Distress, Lungs Clear, Normal Breath Sounds, No Accessory Muscle Use, Chest Non-Tender Cardiovascular: Normal Peripheral Pulses, Regular Rate, Rhythm, No Gallop, No JVD, No Murmur, No Rub GI/Abdominal: Normal Bowel Sounds, Soft, Non-Tender, No Organomegaly, No Distention, No Abnormal Bruit, No Mass (Male) Exam: Deferred Rectal (Males) Exam: Deferred Back Exam: Normal Inspection, Full Range of Motion, NT Extremities: Pedal Edema (chronic and "normal" per patient) Neurological: Alert, Oriented, CN II-XII Intact, Normal Cognition, Normal Gait, Normal Reflexes, No Motor/Sensory Deficits Psychiatric: Normal Affect, Normal Mood Skin Exam: Warm Lymphatic: No Adenopathy Course - Vital Signs Last Recorded V/S: Last Vital Signs Temp 36.2 C 01/20/20 16:26 Pulse 58 L 01/20/20 16:26 Resp 18 01/20/20 16:26 BP 189/77 H 01/20/20 16:26 Pulse Ox 98 01/20/20 16:26 - Orders/Labs/Meds Orders: Active Orders 24 hr Category Date Time Status EKG Documentation Completion [RC] STAT Care 01/20/20 16:16 Active CULTURE BLOOD [BC] Stat Lab 01/20/20 16:30 Received Labs: Laboratory Tests 01/20/20 01/20/20 01/20/20 Range/Units 16:30 16:30 16:30 WBC 9.1 (5.0-10.0) 10^3/uL RBC 3.57 L (4.6-6.2) 10^6/uL Hgb 10.1 L D (14.0-18.0) g/dL Hct 31.6 L (40.0-54.0) % MCV 88.5 (80-100) fL MCH 28.3 (27.0-34.0) pg MCHC 32.0 L (33.0-35.0) g/dL Plt Count 271 D (150-450) 10^3/uL Neut % (Auto) 67.2 (42.2-75.2) % Lymph % (Auto) 22.7 (20.5-50.1) % Hitchcock % (Auto) 8.0 (2-8) % Eos % (Auto) 1.6 (1.0-3.0) % Baso % (Auto) 0.5 (0.0-1.0) % Sodium 146 H (136-145) mmol/L Potassium 2.9 L (3.5-5.1) mmol/L Chloride 105 (98-107) mmol/L Carbon Dioxide 29 (21-32) mmol/L Anion Gap 14.9 H (7-13) mEq/L BUN 51 H (7-18) mg/dL Creatinine 4.18 H (0.70-1.30) mg/dL Est Cr Clr Drug Dosing 13.86 mL/min Estimated GFR (MDRD) 14 BUN/Creatinine Ratio 12.2 (No establ ref range) Glucose 131 H (74-99) mg/dL Lactic Acid 2.6 H* (0.4-2.0) mmol/L Calcium 9.1 (8.5-10.1) mg/dL Total Bilirubin 0.4 (0.2-1.0) mg/dL AST 14 L (15-37) U/L ALT 21 (16-63) U/L Alkaline Phosphatase 90 (46-116) U/L Troponin I < 0.017 (0.000-0.056) ng/mL B-Natriuretic Peptide 563 H (0-100) pg/ml Total Protein 7.8 (6.4-8.2) g/dL Albumin 3.8 (3.4-5.0) g/dL Globulin 4.0 Albumin/Globulin Ratio 0.9 COVID-19 (STEPH) (NEGATIVE) 01/20/20 Range/Units 16:30 WBC (5.0-10.0) 10^3/uL RBC (4.6-6.2) 10^6/uL Hgb (14.0-18.0) g/dL Hct (40.0-54.0) % MCV (80-100) fL MCH (27.0-34.0) pg MCHC (33.0-35.0) g/dL Plt Count (150-450) 10^3/uL Neut % (Auto) (42.2-75.2) % Lymph % (Auto) (20.5-50.1) % Hitchcock % (Auto) (2-8) % Eos % (Auto) (1.0-3.0) % Baso % (Auto) (0.0-1.0) % Sodium (136-145) mmol/L Potassium (3.5-5.1) mmol/L Chloride (98-107) mmol/L Carbon Dioxide (21-32) mmol/L Anion Gap (7-13) mEq/L BUN (7-18) mg/dL Creatinine (0.70-1.30) mg/dL Est Cr Clr Drug Dosing mL/min Estimated GFR (MDRD) BUN/Creatinine Ratio (No establ ref range) Glucose (74-99) mg/dL Lactic Acid (0.4-2.0) mmol/L Calcium (8.5-10.1) mg/dL Total Bilirubin (0.2-1.0) mg/dL AST (15-37) U/L ALT (16-63) U/L Alkaline Phosphatase (46-116) U/L Troponin I (0.000-0.056) ng/mL B-Natriuretic Peptide (0-100) pg/ml Total Protein (6.4-8.2) g/dL Albumin (3.4-5.0) g/dL Globulin Albumin/Globulin Ratio COVID-19 (STEPH) Negative (NEGATIVE) Meds: Medications Discontinued Medications Generic Name Dose Route Start Last Admin Trade Name Freq PRN Reason Stop Dose Admin Potassium Chloride 10 meq/ 100 mls @ 100 mls/hr 01/20/20 17:43 01/20/20 17:50 Premix IV 01/20/20 18:42 100 mls/hr ONETIME ONE Administration Lorazepam 0.5 mg 01/20/20 17:43 01/20/20 17:49 Ativan PO 01/20/20 17:44 0.5 mg ONETIME ONE Administration - Re-Assessments/Exams Free Text/Narrative Re-Assessment/Exam: 01/20/20 17:44 The patient was advised of the examination and lab results. The patient's blood pressure had increased since previous readings. The patient was asked about increased stress in his life. The patient reports his aunt's is Sunday and he has been worrying about that. The patient reports that he may be having a little anxiety problem at this time. An order was placed for IV potassium and an oral dose of Ativan. The patient will be reassessed. Departure - Departure Time of Disposition: 18:49 Disposition: Home, Self-Care 01 Condition: Fair Clinical Impression: Anxiety, Hypokalemia Hypertension Qualifiers: Hypertension type: unspecified Qualified Code(s): I10 - Essential (primary) hypertension - Discharge Information *PRESCRIPTION DRUG MONITORING PROGRAM REVIEWED*: Not Applicable *COPY OF PRESCRIPTION DRUG MONITORING REPORT IN PATIENT MARLENA: Not Applicable Instructions: Hypertension, Adult, [id number], Hypokalemia Forms: ED Department Discharge Care Plan Goals: The patient was advised of the examination, lab, EKG and x-ray results during the visit. The patient was given an IV dose of potassium and an oral dose of Ativan during the visit. The patient reports feeling better throughout the visit. The patient was encouraged to follow-up with his primary care facility for continued evaluation and management. If the patient has any additional symptoms or concerns, the patient should either return to the emergency department or visit his primary care facility. Sepsis Event Note (ED) - Evaluation Sepsis Screening Result: No Definite Risk - Focused Exam Vital Signs: Vital Signs Temp Pulse Resp BP Pulse Ox 01/20/20 16:26 36.2 C 58 L 18 189/77 H 98 - My Orders Last 24 Hours: My Active Orders 01/20/20 16:16 EKG Documentation Completion [RC] STAT 01/20/20 16:30 CULTURE BLOOD [BC] Stat - Assessment/Plan Last 24 Hours: My Active Orders 01/20/20 16:16 EKG Documentation Completion [RC] STAT 01/20/20 16:30 CULTURE BLOOD [BC] Stat
--- NOTE | 2020-01-20 17:22 | CR ---
PROCEDURE INFORMATION: Exam: XR Chest, 1 View Exam date and time: 01/20/2020 5:11 PM Age: 79 years old Clinical indication: Shortness of breath; Additional info: Short of breath TECHNIQUE: Imaging protocol: XR of the chest Views: 1 view. COMPARISON: CR Chest 1V Frontal 12/02/2019 7:23 AM FINDINGS: Lungs: Unremarkable. No consolidation. Pleural space: Unremarkable. No pleural effusion. No pneumothorax. Heart/Mediastinum: Cardiomegaly. Vasculature: Atherosclerosis. Bones/joints: Unremarkable. IMPRESSION: No acute finding. Cardiomegaly
[2020-01-20] MEDS ORDERED: Potassium Chloride 10 MEQ in Premix Bag 1 BAG IV ONE (17:43)
[2020-01-20] MEDS ORDERED: LORazepam 0.5 MG Tab PO ONE (17:43)
== END 2020-01-20 19:03 | disposition home or self-care (01) ==
LOC: DL.ED 16:15
DX: I11.0 Hypertensive heart disease with heart failure (principal); I50.9 Heart failure, unspecified; E87.6 Hypokalemia; F41.9 Anxiety disorder, unspecified; I48.91 Unspecified atrial fibrillation; E78.00 Pure hypercholesterolemia, unspecified; E11.9 Type 2 diabetes mellitus without complications; E66.9 Obesity, unspecified; Z68.30 Body mass index [BMI] 30.0-30.9, adult; Z20.828 Contact with and (suspected) exposure to other viral communicable diseases; Z79.4 Long term (current) use of insulin; Z79.899 Other long term (current) drug therapy
CPT/HCPCS: 36415; 71045; 80053; 83605; 83880; 84484; 85025; 87040; 93005; 96365; 99285; A9270; J3480; U0002

== ENCOUNTER 2020-06-26 00:49 | Emergency (ER) | payer MEDICARE ==
[2020-06-26 01:03] VITALS: BP 191/82; PULSE 77
--- NOTE | 2020-06-26 01:06 | EDM.PDOC ---
ED HPI GENERAL MEDICAL PROBLEM - General Chief Complaint: Abdominal Pain Stated Complaint: CONSTAPATED Time Seen by Provider: 06/26/20 01:04 Source of Information: Reports: Patient History Limitations: Reports: No Limitations - History of Present Illness INITIAL COMMENTS - FREE TEXT/NARRATIVE: no BM past 2 days, tried OTC but nothing. appetite normal. - Related Data Allergies Allergy/AdvReac Type Severity Reaction Status Date / Time No Known Allergies Allergy Verified 01/20/20 16:41 Home Meds: Home Meds Insulin Glarg,Human.Rec.Analog [Lantus] 26 units SQ BEDTIME 10/31/19 [History] Metoprolol Tartrate [Lopressor] 100 mg PO BID 10/31/19 [History] allopurinoL [Zyloprim] 100 mg PO BEDTIME 10/31/19 [History] calcitrioL [Calcitriol] 0.25 mcg PO DAILY 10/31/19 [History] Cyanocobalamin (Vitamin B-12) [Vitamin B-12] 1,000 mcg PO DAILY 12/02/19 [History] Diltiazem [Dilacor XR] 120 mg PO DAILY 12/02/19 [History] Isosorbide Mononitrate [Imdur] 30 mg PO DAILY 12/02/19 [History] Gabapentin [Neurontin] 100 mg PO BEDTIME 12/03/19 [History] cloNIDine [Catapres] 0.1 mg PO BID 12/03/19 [History] hydrALAZINE [Apresoline] 50 mg PO TID 12/03/19 [History] glipiZIDE [Glucotrol] 5 mg PO BID 01/20/20 [History] Past Medical History HEENT History: Reports: None Cardiovascular History: Reports: Afib, Heart Failure, High Cholesterol, Hypertension, SOB on Exertion Respiratory History: Reports: None, SOB Gastrointestinal History: Reports: Chronic Constipation Genitourinary History: Reports: Acute Renal Failure, Prostate Disorder, UTI, Recurrent Musculoskeletal History: Reports: Fracture Neurological History: Reports: None Psychiatric History: Reports: None Endocrine/Metabolic History: Reports: Diabetes, Type II, Obesity/BMI 30+ Hematologic History: Reports: None Immunologic History: Reports: None Oncologic (Cancer) History: Reports: Prostate Other Oncologic History: injections every 6 months Dermatologic History: Reports: None - Infectious Disease History Infectious Disease History: Reports: None - Past Surgical History Head Surgeries/Procedures: Reports: None HEENT Surgical History: Reports: None Cardiovascular Surgical History: Reports: None GI Surgical History: Reports: Appendectomy, Colonoscopy Endocrine Surgical History: Reports: None Oncologic Surgical History: Reports: None Social & Family History - Family History Family Medical History: No Pertinent Family History - Caffeine Use Caffeine Use: Reports: Coffee ED ROS GENERAL - Review of Systems Review Of Systems: Comprehensive ROS is negative, except as noted in HPI. ED EXAM, GI/ABD - Physical Exam Exam: See Below Exam Limited By: No Limitations General Appearance: Alert, WD/WN, Mild Distress, Other (discomfort). No: Active Emesis Ears: Hearing Grossly Normal Throat/Mouth: Normal Voice, No Airway Compromise Head: Atraumatic Neck: Non-Tender, Full Range of Motion Respiratory/Chest: No Respiratory Distress Cardiovascular: Regular Rate, Rhythm GI/Abdominal Exam: Tender, Other (general discomfort). No: Guarding, Rigid, Rebound (Male) Exam: Deferred Rectal (Males) Exam: Deferred Neurological: Alert, Oriented, Normal Cognition, Normal Gait, No Motor/Sensory Deficits Psychiatric: Flat Affect Skin Exam: Warm, Dry, Normal Color Lymphatic: No Adenopathy Course - Vital Signs Last Recorded V/S: Last Vital Signs Temp 36.4 C 06/26/20 01:01 Pulse 77 06/26/20 01:01 Resp 16 06/26/20 01:01 BP 191/82 H 06/26/20 01:01 Pulse Ox 99 06/26/20 01:01 - Orders/Labs/Meds Orders: Active Orders 24 hr Category Date Time Status CULTURE URINE [RM] Stat Lab 06/26/20 01:40 Received Labs: Laboratory Tests 06/26/20 Range/Units 01:40 Urine Color Yellow (YELLOW) Urine Appearance Slightly cloudy (CLEAR) Urine pH 5.5 (5.0-9.0) Ur Specific [place] 1.015 (1.005-1.030) Urine Protein 30 H (NEGATIVE) Urine Glucose (UA) 100 H (NEGATIVE) Urine Ketones Negative (NEGATIVE) Urine Occult Blood Negative (NEGATIVE) Urine Nitrite Negative (NEGATIVE) Urine Bilirubin Negative (NEGATIVE) Urine Urobilinogen 0.2 (0.2-1.0) mg/dL Ur Leukocyte Esterase Trace H (NEGATIVE) Urine RBC 0-5 /HPF Urine WBC 10-20 H (0-5/HPF) /HPF Ur Epithelial Cells Rare (NOT SEEN) /HPF Amorphous Sediment Few (NOT SEEN) /HPF Urine Bacteria Rare (0-FEW/HPF) /HPF Urine Mucus Rare (NOT SEEN) /LPF Departure - Departure Time of Disposition: 02:25 Disposition: Home, Self-Care 01 Condition: Good Clinical Impression: Constipation by delayed colonic transit - Discharge Information Instructions: Constipation, Adult, [id number] Forms: ED Department Discharge Additional Instructions: 1) follow up at clinic 2) recheck as needed 3) may try MIRALAX or MAG CIT or DULCOLAX or COLACE Sepsis Event Note (ED) - Evaluation Sepsis Screening Result: No Definite Risk - My Orders Last 24 Hours: My Active Orders 06/26/20 01:40 CULTURE URINE [RM] Stat - Assessment/Plan Last 24 Hours: My Active Orders 06/26/20 01:40 CULTURE URINE [RM] Stat
--- NOTE | 2020-06-26 02:03 | CR ---
PROCEDURE INFORMATION: Exam: XR Abdomen, 1 View Exam date and time: 06/26/2020 1:06 AM Age: 79 years old Clinical indication: Other: Pain; Additional info: Constipation TECHNIQUE: Imaging protocol: XR of the abdomen. Views: Frontal supine view of the abdomen. 1 View. COMPARISON: CT Chest Abdomen Pelvis wo Cont 12/05/2019 2:24 PM FINDINGS: Diaphragm: No obvious free air considering slight motion of the diaphragm. Gastrointestinal tract: Continued surgical clips in the right lower quadrant possibly related to the appendectomy evident on the prior exam. Rectum not completely included, therefore mild impaction not excluded. No suggestion of an unusual amount of feces elsewhere in the colon. No bowel dilatation. Organs: Gallstone again evident. Bones/joints: Interval slight left convex scoliosis. Continued degeneration of several discs and both hip joints. At least 1 old right rib fracture again evident. IMPRESSION: 1. Mild rectal impaction not excluded. No unusual amount of feces elsewhere in the colon. 2. Cholelithiasis again evident. Other findings detailed above.
== END 2020-06-26 02:25 | disposition home or self-care (01) ==
LOC: DL.ED 00:49
DX: K59.01 Slow transit constipation (principal); I11.0 Hypertensive heart disease with heart failure; I50.9 Heart failure, unspecified; E11.9 Type 2 diabetes mellitus without complications; E66.9 Obesity, unspecified; I48.91 Unspecified atrial fibrillation; Z90.49 Acquired absence of other specified parts of digestive tract; Z79.4 Long term (current) use of insulin; Z79.899 Other long term (current) drug therapy
CPT/HCPCS: 74018; 81001; 87086; 99282; 99284-25